=== PATIENT | male | born 1955 | race Caucasian/White ===

== ENCOUNTER 2019-07-03 17:32 | Inpatient (IN) | payer MEDICARE, SELFPAY ==
[2019-07-03] VITALS (10 sets, daily range): BP systolic 98–133; BP diastolic 40–81; PULSE 68–94; RESP 18–22; TEMP 35.9–36.8; O2SAT 90–99; BMI 42.0
--- NOTE | ~2019-07-03 | XR_ITS ---
EXAMINATION: XR chest 2V DATE: 07/03/2019 18:29 INDICATION: Shortness of breath. Fluid retention. TECHNIQUE: frontal and lateral views of the chest were obtained. COMPARISON: Chest radiograph dated 05/01/19 FINDINGS: Increase in size of a still small right pleural effusion with blunting at the posterior sulcus and co stophrenic angle. There is a new small right pleural effusion. Airspace opacities at the bilateral lo wer lung zones, right greater than left consistent with atelectasis/scarring although superimposed pn eumonia not excludable. No pulmonary edema or pneumothorax. Cardiac silhouette appears enlarged howev er this is likely exaggerated by AP technique. There are bridging osteophytes at multiple levels in t he spine, consistent with diffuse idiopathic skeletal hyperostosis (DISH). Old healed sternal fractur e. IMPRESSION: 1. Small bilateral pleural effusions, new on the left and slightly larger and increased since prior s tudy on the right. 2. Opacities in the bilateral lower lung zones most likely atelectasis/scarring although pneumonia no t excludable. 3. Large to cardiac silhouette which appears unchanged since 11/30/2013 with normal size on intervenin g chest radiograph suggesting this is artifact of AP technique.. Reviewed, dictated and finalized at location A. ROOM SUPERVISOR IMPRESSION: 1. Small bilateral pleural effusions, new on the left and slightly larger and i ncreased since prior study on the right. 2. Opacities in the bilateral lower lung zones most likely atelectasis/scarring although pneumonia not excludable. 3. Large to cardiac silhouette which appears unchanged since 11/30/2013 with nor mal size on intervening chest radiograph suggesting this is artifact of AP tech nique..
--- NOTE | ~2019-07-03 | US_ITS ---
EXAMINATION: US right upper quadrant DATE: 07/06/2019 10:58 INDICATION: Abnormal liver function tests. TECHNIQUE: Multiple grayscale and Doppler ultrasound images of the abdomen were obtained. COMPARISON: Chest CT 05/25/2012 FINDINGS: The pancreas is obscured by bowel gas. There is diffuse hepatic steatosis. There is normal flow in main portal vein. The gallbladder is normal in size and contains sludge. No gallstones or gal lbladder wall thickening. There was no sonographic Hankins sign. The common duct is normal and measure s 6 mm. IMPRESSION: 1. Diffuse hepatic steatosis. 2. Gallbladder sludge. No evidence of acute cholecystitis. Reviewed, dictated and finalized at location A. RIST CLIMBER
--- NOTE | ~2019-07-03 | US_ITS ---
EXAMINATION: US venous doppler UE RT EXAM DATE: 07/04/2019 16:08 INDICATION: Right upper extremity edema. TECHNIQUE: Multiple grayscale, color flow, Doppler sonographic images of the right upper extremity ve ins obtained by technologist. Compression was performed where able. Comparison is made to prior exam ination from 01/16/2018. FINDINGS: Right upper extremity: Jugular vein: ------------> Normal. Subclavian vein: --------> Normal. Axillary vein:------------> Normal. Brachial vein:-----------> Normal. Basilic vein: ------------> Normal. Cephalic vein: ----------> Normal. Radial vein: ------------> Normal. Ulnar vein: > Normal. IMPRESSION: No deep venous thrombosis of the right upper extremity. Reviewed, dictated and finalized at location B. END WEB DEVELOPER
--- NOTE | 2019-07-03 17:39 | ED.GENADULT ---
HPI - General Adult General Chief complaint: Unspecified Stated complaint: MULTIPLE C/O Time Seen by Provider: 07/03/19 17:36 Source: patient Mode of arrival: ambulatory Limitations: no limitations History of Present Illness HPI narrative: The pt is a 63 y/o male who presents to the ED c/o fluid retention. Pt notes that he presented to this ED on 05/01/19. Pt states that he recently had his water pill increased from 3 mg BID to 4 mg BID by his e commerce web developer, Dr. Hurtado. Pt states that he has diffuse edema that is especially present in his scrotum and ABD. Pt reports SOB that is a little worse than normal, BLE wounds with weeping, CP, constipation, and blood in stools. The pt notes that he is on iron pills currently due to the stools. The pt denies N/V/D and fever. Pt states that he has a PMHx of COPD. MD complaint: Fluid retention Onset (ago): unknown Location: abdomen and genitals Associated symptoms: chest pain, shortness of breath (Little worse than normal) and other (Diffuse edema that is particularly in ABD and scrotum, blood in stools (on treatment for this), constipation, BLE wounds with weeping) Related Data Home Medications Medication Instructions Recorded Confirmed bumetanide 2 mg PO BID 05/01/19 05/03/19 rivaroxaban 20 mg tablet 20 mg PO DAILY 05/28/19 05/28/19 Allergies Allergy/AdvReac Type Severity Reaction Status Date / Time No Known Allergies Allergy Verified 05/03/19 09:24 Review of Systems Review of Systems: All systems reviewed & are unremarkable except as noted in HPI and below Constitutional: Constitutional: Denies fever(s) Cardiovascular: Cardiovascular: Reports chest pain and Reports edema (Diffuse, but particularly in ABD and scrotum) Respiratory: Respiratory: Reports dyspnea (A little worse than normal) Gastrointestinal: Gastrointestinal: Reports constipation, Denies diarrhea, Denies nausea, Denies vomiting and Reports other (Blood in stools (On treatment for this)) Integumentary/Breasts: Skin/Breast: Reports wounds (BLE, with weeping) PMFSH Past Medical History Medical History A-fib Arthritis B12 deficiency Benign essential hypertension Body mass index (BMI) 40.0-44.9, adult Cellulitis Recurrent lower extremity cellulitis CHF (congestive heart failure) Chronic kidney disease CKD (chronic kidney disease) Chronic kidney disease stage 3 Diabetes GERD (gastroesophageal reflux disease) Gout Heart attack 2013 with cardiac arrest requiring defibrillation Hypercholesteremia Insomnia Kidney stones Leg fracture, right Moderate pulmonary arterial systolic hypertension Obstructive sleep apnea Refuses CPAP Other and unspecified hyperlipidemia Pneumonia Secondary DM with CKD stage 3 and hypertension Umbilical hernia Not repaired Surgical History Surgical History H/O vein stripping History of cardiac catheterization November 2013 demonstrating high-grade stenosis proximal left anterior descending artery with intracoronary thrombus, high-grade diffuse segmental stenosis of right coronary artery with aspiration and thrombectomy with stent deployment of the LAD, EF post catheterization was 35-40% with moderate severe hypokinesis posterior basal segment with repeat echocardiogram 2017 demonstrating return of normal systolic function History of coronary artery stent placement History of left knee surgery History of tonsillectomy Social History Social History (Updated 05/28/19 @ 09:23 by Guillermo Coleman APN) Social History: [place] [facility] in [place]. The patient and his current were raising her 11-year-old granddaughter until recently. Patient is on disability due to recurrent right leg infections and his cardiac disease. His still works full-time and the patient stays at home with the pets. Patient has been smoking since he was 15 years old and has smoked betwee
--- NOTE | 2019-07-03 17:53 | ECG_ITS ---
Measurements Intervals [place] Rate: 70 P: -24 [place]: 126 QRS: 35 QRSD: 100 T: -59 QT: 360 QTc: 389 Interpretive Statements SINUS RHYTHM LOW QRS VOLTAGE IN PRECORDIAL LEADS INCOMPLETE RIGHT BUNDLE BRANCH BLOCK BORDERLINE ST-T WAVE ABNORMALITY- ANTEROLAT/INF LEADS BASELINE ARTIFACT- I, III, AVR, AVL, V1-V2 BORDERLINE ECG Electronically Signed On 07-03-2019 19:45:20 PELOTA MAKER by Epifanio Morton D.O.
[2019-07-03 18:07] LABS: Basophils Percent Auto 0.4 % (0.2-1.2); Eosinophils Absolute Auto 0.1 K/mm3 (0-0.3); Eosinophils Percent Auto 1.1 % (0-4.4); Hematocrit 23.8 % (42.0-52.0); Immature Granulocyte Absolute 0.06 K/mm3 (0.00-0.031); Immature Granulocyte Percent A 0.6 % (0-0.5); Lymphocytes Absolute Auto 1.02 K/mm3 (0.9-3.2); Mean Corpuscular HGB Conc 26.5 g/dl (32-36); Mean Corpuscular Hemoglobin 23.3 pg (26-34); Mean Corpuscular Volume 88.1 fl (80-100); Mean Platelet Volume 9.9 fl (7.4-10.4); Monocytes Percent Auto 10.8 % (2.6-8.5); Neutrophils Absolute Auto 7.1 K/mm3 (1.3-6.7); Neutrophils Percent Auto 76.1 % (45.5-73.1); Platelet Count Result 332 k/mm3 (150-375); Red Cell Distribution Width 23.8 % (11.5-14.5); White Blood Count 9.3 K/mm3 (4.5-10.0)
[2019-07-03 18:17] LABS: Hemoglobin 6.3 g/dL (14.0-18.0); INR 1.3; Prothrombin Time 16.1 Seconds (11.1-14.7)
[2019-07-03 18:18] LABS: Alveolar/Arterial O2 Gradient 34.8 mmHg; Base Excess ABG 1.7 mEq/l (+/-2.0); Carboxyhemoglobin 8.6 % THb (0-2.0); Fractional Inspired Oxygen 21 %; HCO3 ABG 26.3 mEq/l (22.0-26.0); Oxygen Content ABG 8.9 %vol (16.0-22.0); Oxygen Saturation ABG 93.3 % (95.0-100.0); Oxyhemoglobin 83.2 % THb (90.0-100.0); PCO2 ABG 41.3 mmHg (35.0-45.0); PO2 ABG 65.5 mmHg (80.0-100.0); PO2 FiO2 Ratio Arterial Blood 3.12 %; Reduced Hemoglobin 8.2 %THb (0-5.0); pH ABG 7.422 (7.350-7.450)
[2019-07-03 18:18] LABS: Partial Thromboplastin Time 30.8 SECONDS (22.3-36.8)
[2019-07-03 18:20] LABS: Magnesium 2.2 mg/dL (1.6-2.3); Phosphorus 3.9 mg/dL (2.5-4.5)
[2019-07-03 18:21] LABS: Device ROOM AIR; Modified Allen's Test Pass; Site Drawn LEFT RADIAL; Total Hemoglobin 7.5 g/dL (12.0-18.0)
[2019-07-03 18:22] LABS: Alanine Aminotransferase 26 U/L (4-50); Albumin Level 3.4 g/dL (3.5-5.1); Alkaline Phosphatase 262 U/L (38-126); Aspartate Amino Transferase 31 U/L (17-59); Bilirubin,Total 0.7 mg/dL (0.2-1.3); Blood Urea Nitrogen 41 mg/dL (9-20); CRP 1.8 mg/dL (<1.0); Calcium 8.5 mg/dL (8.4-10.2); Carbon Dioxide 26 mmol/L (22-30); Chloride 92 mmol/L (98-107); Estimated Glomerular Filt Rate 39; Glucose 86 mg/dL (75-110); Sodium 135 mmol/L (137-145)
[2019-07-03 18:34] LABS: NT Pro B Type Natriuretic Pept 6330 PG/ML (5-100); Troponin I 0.014 ng/mL (0.000-0.034)
[2019-07-03 18:40] LABS: Acanthocytes 2+ (NORMAL); Platelet Estimate Adequate (Adequate); Stomatocytes 1+ (NORMAL)
[2019-07-03 18:41] LABS: Burr Cells 1+ (NORMAL); Ovalocytes 2+ (NORMAL)
[2019-07-03 19:02] LABS: Add Urine Microscopic? YES; Appearance Urine Clear (Clear); Bacteria Urine Trace /hpf; Bilirubin Urine Negative (Negative); Blood Urine 2+ (Negative); Color Urine Yellow (Yellow); Glucose Urine UA Negative (Negative); Ketones Urine Negative (Negative); Leukocyte Esterase Ur Negative LEU/UL (Negative); Mucus Urine Rare /lpf; Nitrate Urine Negative (Negative); Protein Urine Negative (Negative); Specific Grav Ur 1.014 (1.001-1.035); Squamous Epithelial Cell Urine Occasional /hpf (Few); Urobilinogen Urine Negative mg/dL (<2.0); WBC Urine 0-3 /hpf
[2019-07-03 19:13] LABS: Iron 25 ug/dL (49-181)
[2019-07-03] MEDS: FUROSEMIDE INJ 40 MG/4 ML VIAL IV PUSH ×2 (19:17→23:12)
[2019-07-03 19:22] LABS: Percent Iron Saturation 6 % (20-50)
[2019-07-03 20:22] LABS: Folic Acid 7.2 ng/mL (2.76->20); Vitamin B12 > 1000.0 pg/mL (239-931)
[2019-07-03] MEDS: IPRATROPIUM BR 0.02% INH SOLN 0.5 MG/2.5 ML VIAL INHALATION (21:50)
[2019-07-03] MEDS: ALBUTEROL SULFATE NEB 2.5 MG/0.5 ML INH 5 MG INHALATION (21:50)
[2019-07-03] MEDS: PANTOPRAZOLE SODIUM IV 40 MG VIAL IV PUSH (23:12)
--- NOTE | 2019-07-03 23:30 | PM.IMHP ---
H&P: HPI History of Present Illness Chief complaint: Fluid retention Narrative: Date and time of patient contact: 07/03/2019 at 11:30 p.m. Solo Krishnan I is a 63 year old male with a past medical history type 2 diabetes mellitus, moderate pulmonary hypertension, obstructive sleep apnea, she she CHF and atrial fibrillation who presented to the ER which fluid retention and increased shortness of breath. The patient reports that he has had increasing lower extremity swelling with a swelling extending up into his thighs and abdomen over the last 3 weeks. He has had weeping wounds to the back of bilateral calves for the last 2 weeks. He has noticed increased erythema bilateral lower extremities for the last 2 weeks. He became concerned enough to come into the ER when on the his scrotum became swollen to the size of cantaloupes. He denies having significant orthopnea but he usually sleeps in a recliner. He has been sleeping on his pulled out so for a on occasion and still denies orthopnea. He has also noticed swelling in his right arm over the last week or so. He denies any fevers but is always chilled. He always has a cough that is productive of grayish phlegm. However his cough has increased recently. He reports that the nebulizer treatments do seem to help his shortness of breath. He has been taking his Bumex 2 mg twice a day. The patient had been admitted to the hospital March 31 through the due to atrial fibrillation, and CHF. He had followed up with Dr. Mia Hurtado. The patient had been told weigh himself. But he had not been doing so because he was afraid of what scale which show him. He had been taking his Bumex as directed. He denies any chest pain or palpitations. He is currently in normal sinus rhythm. He reports that he has been having his usual amount of urine output at home. He denies any dysuria or hematuria. The patient did go to his primary care physician for follow-up May 28 and the patient refused a Cologuard because it was too expensive. He had refused a colonoscopy in the past. The patient seems somewhat reassured that if he did have a colonoscopy that he would be sedated. I encouraged the patient to least consider having endoscopy given his symptoms and significant anemia. He is at least willing to talk to the seafood packer. The patient's hemoglobin had trended down from prior value of 10 down to around 8 as of his follow-up appointment in May. Patient reports black stools but does take iron supplements. He reported that about a week ago he strained to have a bowel movement and had a large amount of blood in the toilet bowl from a ruptured hemorrhoid. He reported that he drip blood briefly but then the bleeding stopped. He reports that his stools are always hard. He has been taking some stool softeners which help a little bit but do not resolve the issue completely. He usually does have a bowel movement every day. He reports that his ventral hernia has not been causing him any pain. He does have a history of B12 deficiency but is B12 level is now high and he no longer has macrocytosis. The patient's weight at the time of his last discharge was 127 kg. He is up about 13 kg from last hospitalization. Review of Systems Review of Systems: Narrative: Except as documented in the HPI, all other systems were reviewed and are negative. [facility] Past Medical History Medical History (Updated 07/03/19 @ 21:17 by Kenya Lott DO) Aortic stenosis Noted on echo March 2019 was mild with a mean gradient of 7 a valve area of 1.6 Arthritis B12 deficiency Diagnosed December 2018 with adequate supplementation B12 level is now elevated Benign essential hypertension Body mass index (BMI) 40.0-44.9, adult CAD (coronary artery disease) Cellulitis Recurrent lower extremity cellulitis Chronic insomnia CKD (chronic kidney disease) Chronic kidney disease stage 3 Combined systolic and diastoli
[2019-07-04] VITALS (23 sets, daily range): BP systolic 98–120; BP diastolic 55–75; PULSE 20–96; RESP 18–93; TEMP 36.2–36.9; O2SAT 82–95
[2019-07-04] MEDS: IPRATROPIUM BR 0.02% INH SOLN 0.5 MG/2.5 ML VIAL INHALATION ×4 (03:43→21:21)
[2019-07-04] MEDS: ALBUTEROL SULFATE NEB 2.5 MG/0.5 ML INH 5 MG INHALATION ×4 (03:43→21:21)
--- NOTE | 2019-07-04 05:09 | ADMGEN ---
This patient, Solo Krishnan I, was admitted to Medical Room 249-01. Patient/family oriented to hospital policies and general routines including ID bracelet, bed and alarms, visiting hours, pain management, procedures, bathroom and other care routines, personal items, smoking policy, room service/diet, and visiting hours. Valuables list has been completed. Information on how to activate the Rapid Response Team has been discussed. Patient/Family are encouraged to report perceived risks to care and to ask questions if they do not understand what they are told or what they should do.
[2019-07-04 05:52] LABS: Hematocrit 26.5 % (42.0-52.0); Hemoglobin 7.3 g/dL (14.0-18.0); Mean Corpuscular HGB Conc 27.5 g/dl (32-36); Mean Corpuscular Hemoglobin 23.9 pg (26-34); Mean Corpuscular Volume 86.6 fl (80-100); Mean Platelet Volume 10.3 fl (7.4-10.4); Platelet Count Result 271 k/mm3 (150-375); Red Blood Count 3.06 M/mm3 (4.6-6.20); Red Cell Distribution Width 22.2 % (11.5-14.5); White Blood Count 6.5 K/mm3 (4.5-10.0)
[2019-07-04 06:13] LABS: Blood Urea Nitrogen 44 mg/dL (9-20); Calcium 8.3 mg/dL (8.4-10.2); Carbon Dioxide 30 mmol/L (22-30); Chloride 93 mmol/L (98-107); Estimated CRCL calculation 64 ml/min; Estimated Glomerular Filt Rate 44; Glucose 101 mg/dL (75-110); Potassium 3.5 mmol/L (3.4-5.0); Sodium 137 mmol/L (137-145)
[2019-07-04] MEDS: FUROSEMIDE INJ 40 MG/4 ML VIAL IV PUSH ×2 (08:30→21:07)
[2019-07-04] MEDS: DOCUSATE SODIUM 100 MG CAPSULE PO (08:30)
[2019-07-04] MEDS: POTASSIUM CHLORIDE 20 MEQ TABLET PO (08:30)
[2019-07-04] MEDS: PANTOPRAZOLE SODIUM IV 40 MG VIAL IV PUSH ×2 (08:31→21:41)
[2019-07-04] MEDS: ATORVASTATIN 40 MG TABLET 80 MG PO (08:31)
[2019-07-04] MEDS: FERROUS SULFATE 324 MG TABLET PO (08:31)
[2019-07-04] MEDS: NICOTINE (*PBKC) 21 MG PATCH 1 PATCH TRANSDERM (08:32)
--- NOTE | 2019-07-04 11:04 | WPDGICN ---
Assessment and Plan Additional Plan This is a 63-year-old white male patient seen in evaluation at the request of the hospitalist service. Patient is from [facility]. Came to the [facility] in [facility]. He has a past medical history of atrial fibrillation on Xarelto anticoagulation. He has been treated for COPD, diabetes mellitus, Sleep apnea, And congestive heart failure. He has become somewhat increasingly short of breath. He has had increased swelling in his lower extremities. Over the last 2 weeks. Because of the shortness of breath and edema he presented to the emergency room. He was found to be in congestive heart failure. With profound anemia. The patient reports over the last 3 weeks has had black stools. On 1 occasion had bright red blood per rectum in the toilet bowl after a hard constipated stool. Patient denies abdominal pain. Past medical history is significant for B12 deficiency COPD, diabetes, GE reflux, atherosclerotic heart disease, atrial fibrillation, Xarelto anticoagulation, Current medications include Xarelto, albuterol, atorvastatin, Symbicort, Bumex, ferrous sulfate, metoprolol, There are no known drug allergies. Physical exam reveals patient to be alert. He is anicteric. HEENT exam is unremarkable. Lungs reveal a few expiratory wheezes. Heart is irregularly irregular. Abdomen is obese. Bowel sounds are present soft nontender. He has large ventral hernia. At the umbilicus. Extremities are without clubbing cyanosis or edema. Rectal exam is without lesions. No stool is obtained. Laboratory work reveals CBC hemoglobin 6.3 on presentation. MCV 86. Iron 25, TIBC 421, 6% saturation, ferritin 11.9. Protime 16.1, INR 1.3. BUN 44, creatinine 1.6. Impression 1. Iron deficiency anemia. Suggesting some chronic GI blood loss. 2. Melenic stools. Suggesting possible upper GI bleeding source. 3. Episode of bright red blood per rectum. May represent hemorrhoids but lower GI bleeding source cannot be excluded. 4. Atrial fibrillation. 5. Xarelto anticoagulation. Likely contributes to GI blood loss. Xarelto now on hold. 6. Congestive heart failure. Profound anemia likely contributes to high-output congestive heart failure. Patient improving after transfusion to more stable hematocrit. 7. COPD. 8. Hypertension. 9. Diabetes mellitus. Plan is to transfuse to stable hemoglobin. Hold anticoagulation until bleeding has stopped. And it is safe to resume. Patient will be covered with Protonix for possible ulcer disease in the antrum. GI endoscopy to include both colonoscopy an EGD anticipated after preparation. Patient currently agrees to proceed with this procedure. Continue to monitor hemoglobin till we are certain it is safe. GI Consult Note Consult date/time: 07/04/19 11:04 HPI: Solo Krishnan I is a 63 year old male [facility] Past Medical History Medical History (Updated 07/03/19 @ 21:17 by Kenya Lott, DO) Aortic stenosis Noted on echo March 2019 was mild with a mean gradient of 7 a valve area of 1.6 Arthritis B12 deficiency Diagnosed December 2018 with adequate supplementation B12 level is now elevated Benign essential hypertension Body mass index (BMI) 40.0-44.9, adult CAD (coronary artery disease) Cellulitis Recurrent lower extremity cellulitis Chronic insomnia CKD (chronic kidney disease) Chronic kidney disease stage 3 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 Right ventricular chamber dimension is severely enlarged. 2. Right ventricular systolic function is moderate to severely reduced. 3. Prominent moderator band. 4. Flattening of the septum in diastole and systole consistent with right ventricular volume and pressure overload. 5. Right atrial chamber dimension is markedly enlarged. 6. There is mild aortic valve stenosis with a peak velocity of 186 cm/s, mean gradient of 7 mmHg, and aortic valve area of 1.6 cm2. 7. There i
[2019-07-04] MEDS: SILVERGEL (ELTA) 45 ML 1 APPLIC TOPICAL (11:37)
[2019-07-04 12:04] LABS: Hematocrit 25.7 % (42.0-52.0); Hemoglobin 7.2 g/dL (14.0-18.0)
[2019-07-04] MEDS: PEG (High)/E-LYTE SOLN 4,000 ML BTL 4000 ML PO (13:03)
--- NOTE | 2019-07-04 14:29 | PCOTNOTE ---
OT evaluation attempted this date. Pt refusing therapy at this time despite encouragement to participate.Will attempt OT evaluation tomorrow.
--- NOTE | 2019-07-04 14:31 | PCPTNOTE ---
attempted PT/OT eval this afternoon...pt declined, just received bowel prep, states that he is sob, and would like to defer until tomorrow...will see tomorrow as appropriate
--- NOTE | 2019-07-04 15:10 | PM.CNCAR ---
Assessment and Plan Assessment and plan (1) Right-sided heart failure: Code(s): I50.810 - Right heart failure, unspecified Status: Acute Assessment and Plan: his heart failure is predominantly right-sided. He has severe RV enlargement and hypokinesis noted by echocardiogram last fall. This is likely a combination of untreated sleep apnea, morbid obesity. Certainly may have a degree of left heart involvement also and diastolic dysfunction. Cannot exclude alcoholic liver disease as a contributor either. I will check a 2D echocardiogram Doppler to re-evaluate his RV size and function and pulmonary pressures. I am going to initiate some metolazone therapy 2.5 mg p.o. daily in addition to continue his IV Lasix. Will check a bilirubin also (2) Severe anemia: Code(s): D64.9 - Anemia, unspecified Status: Acute Assessment and Plan: Xarelto is on hold and he is planning on having a colonoscopy in and the endoscopy tomorrow (3) Paroxysmal atrial fibrillation: Code(s): I48.0 - Paroxysmal atrial fibrillation Status: Acute Assessment and Plan: in sinus rhythm. Will resume metoprolol 25 mg p.o. b.i.d. and increaseas blood pressure allows (4) Coronary artery disease: Code(s): I25.10 - Atherosclerotic heart disease of zuni coronary artery without angina pectoris Status: Acute Assessment and Plan: hold aspirin for now. Continue atorvastatin and beta-miyram. (5) Tobacco abuse: Code(s): Z72.0 - Tobacco use Status: Acute Assessment and Plan: Counseling performed (6) Alcohol abuse: Code(s): F10.10 - Alcohol abuse, uncomplicated Status: Acute Assessment and Plan: counseling performed (7) Obstructive sleep apnea: Code(s): G47.33 - Obstructive sleep apnea (adult) (pediatric) Status: Acute Assessment and Plan: will consult Dr. Weiss to assist with COPD management as well as hopefully to assist with convincing him to start CPAP therapy which is imperative to his survival /treatment History of Present Illness History of Present Illness Consult date/time: 07/04/19 15:10 Requesting physician: Veronica Kingsley PA-C Consult reason: congestive heart failure and Other ( Anasarca) Reason For Visit: Fluid retention Narrative: date of service 07/04/2019: History: Patient is a 63-year-old male who is a patient Dr. elise wild is a history of VFib arrest in 2014 in setting of a non-STEMI. Drug-eluting state was placed to the proximal LAD. He does have diffuse the RCA disease also. He was admitted at [facility] in March 2019 and was found to be in atrial fibrillation and also was found to have severe RV enlargement and moderate RV ST elevation at 56. EF 55-60%. Mild aortic stenosis. He was started on anticoagulation. Patient has syncopal episode on which is thought to be related to tussive syncope. He did see our nurse practitioner in the office in late May homemade some minor adjustments to his Bumex. Patient was also on metoprolol tartrate 75 mg p.o. b.i.d. also at that time. Patient does drink and smoke excessively. There is also evidence of a highly positive apnea link during his hospitalization but reportedly the patient did not want to pursue sleep medicine therapy at that time. He came to hospital because of scrotal edema and progressively worsening fluid retention everywhere. He was also found to be severely anemic with a hemoglobin of 6. He was transfused. He was started on IV diuretics. Cardiology consultation was requested for further workup evaluation. Patient is short of breath with minimal activity. He has had no chest pain but has had some paroxysmal nocturnal dyspnea. No syncope or presyncope Be sides that aforementioned on . Review of Systems Review of Systems: All systems reviewed & are unremarkable except as noted in HPI and below Constitutional: Consti
--- NOTE | 2019-07-04 16:13 | PM.IMPN ---
Progress Note: A&P Assessment and Plan (1) Severe anemia: Code(s): D64.9 - Anemia, unspecified Status: Acute Assessment and Plan: Hgb on arrival 6.3 and he received 2 units packed RBC overnight, Hgb remains low at 7.2 today. He reports black stools for the last [address] Snell consulted - appreciate input. Noted his plan for EGD and colonoscopy tomorrow if Hgb remains stable. Will monitor H&H overnight and transfuse as needed to keep Hgb > 7. Home Xarelto is held. (2) Acute on chronic combined systolic and diastolic CHF (congestive heart failure): Code(s): I50.43 - Acute on chronic combined systolic (congestive) and diastolic (congestive) heart failure Status: Acute Assessment and Plan: Patient follows with Dr Hurtado. Echocardiogram March 2019 demonstrated severe RV enlargment. Chest x-ray shows small bilateral pleural effusions, BNP 6330. Dr Rob consulted - appreciate further recommendations regarding diuresis. Noted his plan for repeat echocardiogram and added metolazone to IV lasix. (3) Anasarca: Code(s): R60.1 - Generalized edema Status: Acute Assessment and Plan: [place] to be secondary to above. Bilirubin on arrival 0.7, ALT and AST within normal limits, alk-phos is elevated. (4) COPD (chronic obstructive pulmonary disease): Qualifiers: COPD type: unspecified COPD Qualified Code(s): J44.9 - Chronic obstructive pulmonary disease, unspecified Code(s): J44.9 - Chronic obstructive pulmonary disease, unspecified Status: Acute Assessment and Plan: Continue home symbicort. He does have a productive cough that he tells me is normal for him. No fevers or leukocytosis. Continue scheduled nebulized bronchodilators. Added Pulmozyme, Mucinex and Cornet. Dr. Rob has consulted Dr. Weiss. (5) Tobacco abuse: Code(s): Z72.0 - Tobacco use Status: Acute Assessment and Plan: Smoking cessation discussed. Nicotine patch ordered. (6) Obstructive sleep apnea: Code(s): G47.33 - Obstructive sleep apnea (adult) (pediatric) Status: Acute Assessment and Plan: Discussed the cardiopulmonary risks of untreated sleep apnea which is likely contributing to his heart failure. Apnea link 03/30/19 during one of his previous admissions is positive and it is noted that he declined further evaluation with sleep study. (7) Paroxysmal atrial fibrillation: Code(s): I48.0 - Paroxysmal atrial fibrillation Status: Chronic Assessment and Plan: Cardiology following. Continue beta-blockade with metoprolol. Home Xarelto on hold. (8) Venous stasis ulcers of both lower extremities: Code(s): I83.019 - Varicose veins of right lower extremity with ulcer of unspecified site; I83.029 - Varicose veins of left lower extremity with ulcer of unspecified site; L97.919 - Non-pressure chronic ulcer of unspecified part of right lower leg with unspecified severity; L97.929 - Non-pressure chronic ulcer of unspecified part of left lower leg with unspecified severity Status: Acute Assessment and Plan: Seen by wound nurse, cover with Mepilex dressings. Lower legs are erythematous but do not appear to be acutely infected. (9) CKD (chronic kidney disease): Qualifiers: Chronic kidney disease stage: unspecified stage Qualified Code(s): N18.9 - Chronic kidney disease, unspecified Code(s): N18.9 - Chronic kidney disease, unspecified Status: Acute Assessment and Plan: Cr at 1.6 today, has been up to 2.4 in 03/2019. Will monitor renal function especially with increased diuresis. Subjective Date/time seen: 07/04/19
[2019-07-04] MEDS: metOLazone 2.5 MG TABLET PO (16:34)
[2019-07-04 17:09] LABS: Bilirubin Indirect 0.6 mg/dL (0-1.1); Bilirubin,Total 1.1 mg/dL (0.2-1.3)
[2019-07-04 19:05] LABS: IFOB Positive Control Positive; Immunochemical Fecal Occult Bl Positive (N)
[2019-07-04] MEDS: METOPROLOL TARTRATE 25 MG TABLET PO (21:07)
[2019-07-04] MEDS: DORNASE ALFA INH SOLN 1 MG/ML 2.5 ML AMP 2.5 MG INHALATION (21:21)
[2019-07-05] VITALS (23 sets, daily range): BP systolic 104–145; BP diastolic 54–91; PULSE 80–99; RESP 17–28; TEMP 36.1–36.6; O2SAT 93–100
--- NOTE | 2019-07-05 | ECHO_ITS ---
Patient Info Name: Solo Krishnan Age: 63 years : 1955 Gender: Male Ht: 72 in Wt: 309 lbs BSA: 2.73 m2 HR: 82 bpm BP: 107 / 52 mmHg Heart Rhythm: Sinus Rhythm Technical Quality: Fair Exam Date: 07/05/2019 7:18 AM Exam Location: [facility] [facility] Patient Status: Inpatient Admit Date: 07/04/2019 Staff Ordering Physician: Pancho Rob MD Tree Surgeon: Candi Ayoub RDCS Attending Provider: Veronica Kingsley PA-C Referring Physician: Liane STEVENSON; Exam Type: CA echo doppler color flow Study Info Indications I50.30 - Unspecified diastolic (congestive) heart failure Complete two-dimensional, color flow and Doppler transthoracic echocardiogram is performed. Summary 1. There is mild concentric increased left ventricular wall thickness. 2. Left ventricular systolic function is normal, estimated at 65-70%. 3. Right ventricular chamber dimension is severely enlarged. 4. Right atrial chamber dimension is severely enlarged. 5. Severe pulmonary hypertension, estimated pulmonary arterial systolic pressure is 99 mmHg. 6. There is moderate to severe tricuspid valve regurgitation. 7. Compared with an echo several months ago in March of 2019 the findings are not substantially changed. Left Ventricle Left ventricular chamber dimension is normal. Left ventricular systolic function is normal, estimated at 65-70%. There is mild concentric increased left ventricular wall thickness. The left ventricular diastolic function is grade I diastolic dysfunction. Right Ventricle Right ventricular chamber dimension is severely enlarged. Right ventricular systolic function is reduced. Left Atria Left atrial chamber dimension is mildly enlarged. Right Atria Right atrial chamber dimension is severely enlarged. Aortic Valve The aortic valve is trileaflet. There is moderate aortic valve sclerosis. There is mild aortic valve stenosis with a peak velocity of 217 cm/s, mean gradient of 8 mmHg, and aortic valve area of 2.1 cm2. Pulmonic Valve The pulmonic valve is not well visualized. Mitral Valve The mitral valve has normal leaflets. There is trace mitral valve regurgitation. Tricuspid Valve The tricuspid valve leaflets are normal. There is moderate to severe tricuspid valve regurgitation. Severe pulmonary hypertension, estimated pulmonary arterial systolic pressure is 99 mmHg. Pericardium/Pleural The pericardium appears normal. Aorta The aortic root size at the sinus of Valsalva is normal. Left Ventricular Outflow Tract Name Value Normal LVOT 2D LVOT Diameter 2.0 cm LVOT Doppler LVOT Peak Gradient 6 mmHg LVOT Mean Gradient 3 mmHg LVOT VTI 24 cm LVOT VTI/AV VTI Ratio 0.7 LVOT Stroke Volume 77 ml LVOT CO 6.5 l/min LVOT CI 2.4 l/min/m2 Pulmonic Valve Name Value Normal -----
[2019-07-05 00:34] LABS: Hematocrit 27.3 % (42.0-52.0); Hemoglobin 7.5 g/dL (14.0-18.0)
[2019-07-05] MEDS: IPRATROPIUM BR 0.02% INH SOLN 0.5 MG/2.5 ML VIAL INHALATION ×4 (03:23→20:00)
[2019-07-05] MEDS: ALBUTEROL SULFATE NEB 2.5 MG/0.5 ML INH 5 MG INHALATION ×4 (03:24→20:00)
[2019-07-05 07:32] LABS: Basophils Percent Auto 0.3 % (0.2-1.2); Eosinophils Absolute Auto 0.1 K/mm3 (0-0.3); Eosinophils Percent Auto 1.1 % (0-4.4); Hematocrit 25.9 % (42.0-52.0); Hemoglobin 7.3 g/dL (14.0-18.0); Immature Granulocyte Absolute 0.02 K/mm3 (0.00-0.031); Immature Granulocyte Percent A 0.3 % (0-0.5); Lymphocytes Absolute Auto 0.59 K/mm3 (0.9-3.2); Lymphocytes Percent Auto 7.8 % (18.3-44.2); Mean Corpuscular HGB Conc 28.2 g/dl (32-36); Mean Corpuscular Hemoglobin 23.9 pg (26-34); Mean Corpuscular Volume 84.9 fl (80-100); Mean Platelet Volume 9.6 fl (7.4-10.4); Monocytes Absolute Auto 0.7 K/mm3 (0.1-0.6); Monocytes Percent Auto 9.2 % (2.6-8.5); Neutrophils Absolute Auto 6.2 K/mm3 (1.3-6.7); Neutrophils Percent Auto 81.3 % (45.5-73.1); Platelet Count Result 241 k/mm3 (150-375); Red Blood Count 3.05 M/mm3 (4.6-6.20); White Blood Count 7.6 K/mm3 (4.5-10.0)
[2019-07-05 07:38] LABS: Crenated RBC 1+ (NORMAL); Hypochromasia 2+ (NORMAL); Ovalocytes 1+ (NORMAL); Platelet Estimate Adequate (Adequate); Tear Drop Cells 1+ (NORMAL)
[2019-07-05 07:45] LABS: Blood Urea Nitrogen 32 mg/dL (9-20); Calcium 7.8 mg/dL (8.4-10.2); Carbon Dioxide 33 mmol/L (22-30); Chloride 95 mmol/L (98-107); Estimated CRCL calculation 84 ml/min; Estimated Glomerular Filt Rate > 60; Glucose 94 mg/dL (75-110); Magnesium 1.8 mg/dL (1.6-2.3); Potassium 3.1 mmol/L (3.4-5.0); Sodium 137 mmol/L (137-145)
[2019-07-05] MEDS: FUROSEMIDE INJ 40 MG/4 ML VIAL IV PUSH ×2 (08:44→18:13)
[2019-07-05] MEDS: PANTOPRAZOLE SODIUM IV 40 MG VIAL IV PUSH (08:44)
[2019-07-05] MEDS: METOPROLOL TARTRATE 25 MG TABLET PO (08:52)
[2019-07-05] MEDS: POTASSIUM CHLORIDE 20 MEQ TABLET 40 MEQ PO (08:53)
[2019-07-05] MEDS: SILVERGEL (ELTA) 45 ML 1 APPLIC TOPICAL (08:53)
[2019-07-05] MEDS: DORNASE ALFA INH SOLN 1 MG/ML 2.5 ML AMP 2.5 MG INHALATION ×2 (09:12→20:00)
--- NOTE | 2019-07-05 10:30 | PC.NURSE ---
To GI lab via stretcher with GI lab staff.
[2019-07-05] MEDS: LACTATED RINGERS 1,000 ML 150 ML IV CONT (10:35)
[2019-07-05 10:48] LABS: Glucose Point of Care 81 (65-105)
--- NOTE | 2019-07-05 10:50 | WPDANESEPPF ---
Anes - Initial Pre Proc Eval Procedure: Operation Date: 07/05/19 11:00 Proposed Procedures p Esophagogastroduodenoscopy & Colonoscopy - Alessandro Snell MD Date/Time: 07/05/19 10:50 Surgeon: SUSANNA Diana Pre Op Diagnosis: Fluid retention Patient Data Age: 63 Gender: M Height: 6 ft Weight: 140.6 kg Last Vital Signs Temp 36.6 C 07/05/19 10:16 Pulse 85 07/05/19 10:16 Resp 20 07/05/19 10:16 BP 104/64 07/05/19 10:16 Pulse Ox 100 07/05/19 10:16 Allergies Allergy/AdvReac Type Severity Reaction Status Date / Time No Known Allergies Allergy Verified 07/05/19 10:14 Home Medications Medication Instructions Recorded Confirmed Type albuterol sulfate 90 mcg/actuation See Rx Instructions INHALATION Q4H 03/08/19 07/03/19 Rx aerosol inhaler PRN #8.5 gm metoprolol tartrate 50 mg tablet 50 mg PO Q12HR 90 Days #180 tablet 04/02/19 07/03/19 Rx albuterol sulfate 2.5 mg INHALATION BID PRN #20 vial 04/09/19 07/03/19 Rx bumetanide 2 mg PO BID 05/01/19 07/03/19 History rivaroxaban 20 mg tablet 20 mg PO DAILY 05/28/19 07/03/19 History ferrous sulfate 325 mg (65 mg 325 mg PO DAILY #90 tablet 05/29/19 07/03/19 Rx iron) tablet atorvastatin 80 mg tablet 80 mg PO DAILY #90 tablet 06/20/19 07/03/19 Rx budesonide-formoterol [Symbicort] 1 inh INHALATION BID 07/03/19 07/03/19 History Laboratory Tests 07/04/19 07/04/19 07/04/19 11:52 16:50 17:58 WBC RBC Hgb 7.2 g/dL L g/dL (14.0-18.0) Hct 25.7 % L % (42.0-52.0) MCV MCH MCHC RDW Plt Count MPV Immature Gran % (Auto) Neut % (Auto) Lymph % (Auto) [place] % (Auto) Eos % (Auto) Baso % (Auto) Lymph # (Auto) [place] # (Auto) Eos # (Auto) Baso # (Auto) Abs Immat Gran (auto) Absolute Neuts (auto) Absolute Nucleated RBC Nucleated RBC % Platelet Estimate Hypochromasia Tear Drop Cells Ovalocytes Crenated Cell Sodium Potassium Chloride Carbon Dioxide BUN Creatinine Estim Creat Clear Calc Estimated GFR Glucose POC Capillary Glucose Calcium Magnesium Total Bilirubin 1.1 mg/dL mg/dL (0.2-1.3) Direct Bilirubin 0.0 mg/dL mg/dL (0-0.3) Indirect Bilirubin 0.6 mg/dL mg/dL (0-1.1) Stl Occult Blood (IFOB) Positive H (N) 07/05/19 07/05/19 07/05/19 00:16 07:27 07:27 WBC 7.6 K/mm3 K/mm3 (4.5-10.0) RBC 3.05 M/mm3 L M/mm3 (4.6-6.20) Hgb 7.5 g/dL L g/dL 7.3 g/dL L g/dL (14.0-18.0) (14.0-18.0) Hct 27.3 % L % 25.9 % L % (42.0-52.0) (42.0-52.0) MCV 84.9 fl fl (80-100) MCH 23.9 pg L pg (26-34) MCHC 28.2 g/dl L g/dl (32-36) RDW 22.0 % H % (11.5-14.5) Plt Count 241 k/mm3 k/mm3 (150-375) MPV 9.6 fl fl (7.4-10.4) Immature Gran % (Auto) 0.3 % % (0-0.5) Neut % (Auto) 81.3 % H % (45.5-73.1) Lymph % (Auto) 7.8 % L % (18.3-44.2) [place] % (Auto) 9.2 % H % (2.6-8.5) Eos % (Auto) 1.1 % % (0-4.4) Baso % (Auto) 0.3 % % (0.2-1.2) Lymph # (Auto) 0.59 K/mm3 L K/mm3 (0.9-3.2) [place] # (Auto) 0.7 K/mm3 H K/mm3 (0.1-0.6) Eos # (Auto) 0.1 K/mm3 K/mm3 (0-0.3) Baso # (Auto) 0.0 K/mm3 K/mm3 (0.0-0.1) Abs Immat Gran (auto) 0.02 K/mm3 K/mm3 (0.00-0.031) Absolute Neuts (auto) 6.2 K/mm3 K/mm3 (1.3-6.7) Absolute Nucleated RBC 0.0 K/mm3 K/mm3 (0.0-0.012) Nucleated RBC % 0.0 % % (0.0-0.2
--- NOTE | 2019-07-05 11:01 | PM.IMPN ---
Progress Note: A&P Assessment and Plan (1) Severe anemia: Code(s): D64.9 - Anemia, unspecified Status: Acute Assessment and Plan: Hgb on arrival 6.3 and he received 2 units packed RBC, Hgb remains low at 7.5 this morning. He reports black stools for the last [address] Snell consulted - appreciate input. EGD/colonoscopy today. Will monitor H&H and transfuse as needed to keep Hgb > 7. Home Xarelto is held. (2) Acute on chronic combined systolic and diastolic CHF (congestive heart failure): Code(s): I50.43 - Acute on chronic combined systolic (congestive) and diastolic (congestive) heart failure Status: Acute Assessment and Plan: Patient follows with Dr Hurtado. Echocardiogram March 2019 demonstrated severe RV enlargment. Chest x-ray shows small bilateral pleural effusions, BNP 6330. Dr Rob consulted - appreciate further recommendations regarding diuresis. Noted his plan for repeat echocardiogram and added metolazone to IV lasix. Echo pending. (3) Anasarca: Code(s): R60.1 - Generalized edema Status: Acute Assessment and Plan: [place] to be secondary to above. Bilirubin on arrival 0.7, ALT and AST within normal limits, alk-phos is elevated. Recheck CMP tomorrow and consider abdominal ultrasound since he does have a reported history of alcohol in excess. (4) COPD (chronic obstructive pulmonary disease): Qualifiers: COPD type: unspecified COPD Qualified Code(s): J44.9 - Chronic obstructive pulmonary disease, unspecified Code(s): J44.9 - Chronic obstructive pulmonary disease, unspecified Status: Acute Assessment and Plan: Continue home symbicort. He does have a productive cough that he tells me is normal for him. No fevers or leukocytosis. Continue scheduled nebulized bronchodilators, Pulmozyme, Mucinex and Cornet. Still with audible wheezing today, will add oral prednisone. Dr. Rob has consulted Dr. Weiss. (5) Tobacco abuse: Code(s): Z72.0 - Tobacco use Status: Acute Assessment and Plan: Smoking cessation discussed. Nicotine patch ordered. (6) Obstructive sleep apnea: Code(s): G47.33 - Obstructive sleep apnea (adult) (pediatric) Status: Acute Assessment and Plan: Discussed the cardiopulmonary risks of untreated sleep apnea which is likely contributing to his heart failure. Apnea link 03/30/19 during one of his previous admissions is positive and it is noted that he declined further evaluation with sleep study. Recommend sleep study outpatient. (7) Paroxysmal atrial fibrillation: Code(s): I48.0 - Paroxysmal atrial fibrillation Status: Chronic Assessment and Plan: Cardiology following. Continue beta-blockade with metoprolol. Home Xarelto on hold due to GI bleed. (8) Venous stasis ulcers of both lower extremities: Code(s): I83.019 - Varicose veins of right lower extremity with ulcer of unspecified site; I83.029 - Varicose veins of left lower extremity with ulcer of unspecified site; L97.919 - Non-pressure chronic ulcer of unspecified part of right lower leg with unspecified severity; L97.929 - Non-pressure chronic ulcer of unspecified part of left lower leg with unspecified severity Status: Acute Assessment and Plan: Seen by wound nurse, cover with Mepilex dressings. Lower legs are erythematous but do not appear to be acutely infected at this time (9) CKD (chronic kidney disease): Qualifiers: Chronic kidney disease stage: unspecified stage Qualified Code(s): N18.9 - Chronic kidney disease, unspecified Code(s): N18.9 - Chronic kidney disease, unspecified Status: Acute Assessment and Plan:
--- NOTE | 2019-07-05 12:03 | SUR.OPER ---
SIGMOID POLYPECTOMY PERFORMED, NO SPECIMEN RETRIEVED
--- NOTE | 2019-07-05 12:41 | PC.NURSE ---
Patient returned from GI lab via stretcher with GI lab staff. Settled into bed. No c/o pain. No distress noted. Patient assisted with ordering lunch tray.
--- NOTE | 2019-07-05 13:13 | PCOTNOTE ---
Attempted Occupational Therapy Evaluation, Pt reports he has no interest in any kind of therapy during this hospital stay would appreciate if we did not return at this time. RN notified.
[2019-07-05] MEDS: predniSONE 20 MG TABLET 60 MG PO (13:28)
[2019-07-05] MEDS: metOLazone 2.5 MG TABLET PO (13:29)
[2019-07-05 13:33] LABS: Hemoglobin 7.6 g/dL (14.0-18.0)
--- NOTE | 2019-07-05 16:29 | PM.PNCARD ---
Progress Note: A&P Assessment and Plan (1) Right-sided heart failure: Qualifiers: Heart failure chronicity: acute on chronic Qualified Code(s): I50.813 - Acute on chronic right heart failure Code(s): I50.810 - Right heart failure, unspecified Status: Acute Assessment and Plan: -His heart failure is predominantly right-sided. He has severe RV enlargement and hypokinesis noted by echocardiogram last fall. This is likely a combination of untreated sleep apnea, morbid obesity. Certainly may have a degree of left heart involvement also and diastolic dysfunction. Cannot exclude alcoholic liver disease as a contributor either. -Echo 07/05/2019: Mild concentric increased left ventricular wall thickness. Left ventricular systolic function is normal, estimated at 65-70%. Right ventricular chamber dimension is severely enlarged. Right atrial chamber dimension is severely enlarged. Severe pulmonary hypertension, estimated pulmonary arterial systolic pressure is 99 mmHg. Moderate to severe tricuspid valve regurgitation. Compared with an echo several months ago in March of 2019 the findings are not substantially changed. -Continue metolazone 2.5 mg p.o. daily along with IV Lasix 40 mg every 12 hours. Will change to b.i.d. dosing that he is not getting diuretics at bedtime. -Supplement potassium. While we are diuresing him, will give him 40 mEq b.i.d. and monitor his electrolytes closely. Given additional 40 mEq now. Daily BMP and magnesium. Bilirubin 1.1 (2) Severe anemia: Code(s): D64.9 - Anemia, unspecified Status: Acute Assessment and Plan: Continue to hold Xarelto for now. See endoscopy and colonoscopy report. Stigmata of bleeding was noted on his internal hemorrhoids. (3) Paroxysmal atrial fibrillation: Code(s): I48.0 - Paroxysmal atrial fibrillation Status: Chronic Assessment and Plan: In sinus rhythm. Can discontinue telemetry. Increase Metoprolol to 50 mg q.12 hours. m (4) Coronary artery disease: Qualifiers: Associated angina: without angina Coronary Disease-Associated Artery/Lesion type: [place] artery [place] vs. transplanted heart: [place] heart Qualified Code(s): I25.10 - Atherosclerotic heart disease of [place] coronary artery without angina pectoris Code(s): I25.10 - Atherosclerotic heart disease of [place] coronary artery without angina pectoris Status: Acute Assessment and Plan: Hold aspirin for now. Continue atorvastatin and beta-miryam. Resume when able. (5) Tobacco abuse: Code(s): Z72.0 - Tobacco use Status: Acute Assessment and Plan: Counseling performed (6) Alcohol abuse: Code(s): F10.10 - Alcohol abuse, uncomplicated Status: Acute Assessment and Plan: counseling performed (7) Obstructive sleep apnea: Code(s): G47.33 - Obstructive sleep apnea (adult) (pediatric) Status: Acute Assessment and Plan: Treatment of his sleep apnea is imperative. Additional Plan Encouraged that he needs to sit up on the side of the bed at least for meals. He should be getting out of bed and participating with physical therapy however he states he does not need them. Wean oxygen as able. Plan discussed with Dr. Lawler [id number] 07/05/2019 Time Spent With Patient Time with patient: 15 - 25 minutes Subjective Date/time seen: 07/05/19 16:29 Interval history: Follow-up for: Date of service: 07/05/2019 Subjective: Denied chest discomfort. ?The only thing that hurts his my pride?. Breathing is slightly better. Cough is nonproductive but sometimes forceful. No lightheadedness. Legs are so heavy that he cannot move. Refused physical therapy today. Review of Systems
[2019-07-05] MEDS: FERROUS SULFATE 324 MG TABLET PO (17:11)
[2019-07-05] MEDS: ATORVASTATIN 40 MG TABLET 80 MG PO (17:11)
[2019-07-05] MEDS: NICOTINE (*PBKC) 21 MG PATCH 1 PATCH TRANSDERM (17:11)
--- NOTE | 2019-07-05 17:14 | PC.NURSE ---
Patient refused to get up to the chair for dinner. States he wants to sleep.
[2019-07-05] MEDS: POTASSIUM CHLORIDE 20 MEQ TABLET.ER 40 MEQ PO (18:13)
[2019-07-05 18:16] LABS: Hematocrit 25.9 % (42.0-52.0); Hemoglobin 7.1 g/dL (14.0-18.0)
[2019-07-05] MEDS: METOPROLOL TARTRATE 50 MG TAB PO (20:42)
[2019-07-05] MEDS: MAGNESIUM OXIDE 200 MG TABLET PO (20:42)
[2019-07-06] VITALS (21 sets, daily range): BP systolic 110–128; BP diastolic 54–73; PULSE 78–108; RESP 18–24; TEMP 36.1–36.8; O2SAT 94–100
[2019-07-06 00:35] LABS: Hematocrit 28.1 % (42.0-52.0); Hemoglobin 7.7 g/dL (14.0-18.0)
[2019-07-06] MEDS: IPRATROPIUM BR 0.02% INH SOLN 0.5 MG/2.5 ML VIAL INHALATION ×4 (03:05→19:20)
[2019-07-06] MEDS: ALBUTEROL SULFATE NEB 2.5 MG/0.5 ML INH 5 MG INHALATION ×4 (03:05→19:20)
[2019-07-06 04:51] LABS: Hematocrit 25.2 % (42.0-52.0); Immature Granulocyte Absolute 0.03 K/mm3 (0.00-0.031); Immature Granulocyte Percent A 0.4 % (0-0.5); Lymphocytes Absolute Auto 0.27 K/mm3 (0.9-3.2); Lymphocytes Percent Auto 3.3 % (18.3-44.2); Mean Corpuscular HGB Conc 27.4 g/dl (32-36); Mean Corpuscular Hemoglobin 23.8 pg (26-34); Mean Corpuscular Volume 86.9 fl (80-100); Mean Platelet Volume 10.4 fl (7.4-10.4); Monocytes Absolute Auto 0.3 K/mm3 (0.1-0.6); Monocytes Percent Auto 3.2 % (2.6-8.5); Neutrophils Absolute Auto 7.6 K/mm3 (1.3-6.7); Neutrophils Percent Auto 93.1 % (45.5-73.1); Platelet Count Result 233 k/mm3 (150-375); Red Cell Distribution Width 21.6 % (11.5-14.5); White Blood Count 8.1 K/mm3 (4.5-10.0)
[2019-07-06 05:09] LABS: Alanine Aminotransferase 21 U/L (4-50); Alkaline Phosphatase 210 U/L (38-126); Aspartate Amino Transferase 22 U/L (17-59); Bilirubin,Total 0.9 mg/dL (0.2-1.3); Blood Urea Nitrogen 31 mg/dL (9-20); Calcium 7.7 mg/dL (8.4-10.2); Carbon Dioxide 32 mmol/L (22-30); Chloride 95 mmol/L (98-107); Estimated CRCL calculation 72 ml/min; Estimated Glomerular Filt Rate 52; Glucose 137 mg/dL (75-110); Magnesium 1.8 mg/dL (1.6-2.3); Phosphorus 3.5 mg/dL (2.5-4.5); Potassium 4.3 mmol/L (3.4-5.0); Sodium 137 mmol/L (137-145)
[2019-07-06 05:19] LABS: Hemoglobin 6.9 g/dL (14.0-18.0)
[2019-07-06 05:21] LABS: Hypochromasia 2+ (NORMAL); Microcytosis 1+ (NORMAL); Platelet Estimate Adequate (Adequate)
[2019-07-06 05:22] LABS: Macrocytosis 1+ (NORMAL); Ovalocytes 1+ (NORMAL)
[2019-07-06] MEDS: POTASSIUM CHLORIDE 20 MEQ TABLET.ER 40 MEQ PO ×2 (07:51→17:40)
[2019-07-06] MEDS: predniSONE 20 MG TABLET 60 MG PO (07:52)
--- NOTE | 2019-07-06 08:00 | ECG_ITS ---
Measurements Intervals O'Brien Rate: 93 P: 23 VT: 138 QRS: 31 QRSD: 88 T: -34 QT: 312 QTc: 388 Interpretive Statements SINUS RHYTHM ATRIAL PREMATURE COMPLEX INCOMPLETE RIGHT BUNDLE BRANCH BLOCK LOW QRS VOLTAGE IN PRECORDIAL LEADS BORDERLINE ST-T WAVE ABNORMALITY- DIFFUSE LEADS BASELINE ARTIFACT- I, III, AVL, V1 BORDERLINE ECG Electronically Signed On 07-06-2019 9:30:02 CORPORATE LEGAL ASSISTANT by Epifanio Morton D.O.
[2019-07-06] MEDS: DORNASE ALFA INH SOLN 1 MG/ML 2.5 ML AMP 2.5 MG INHALATION ×2 (08:03→19:20)
[2019-07-06] MEDS: FUROSEMIDE INJ 40 MG/4 ML VIAL IV PUSH ×2 (09:08→17:40)
[2019-07-06] MEDS: FERROUS SULFATE 324 MG TABLET PO ×2 (09:08→17:40)
[2019-07-06] MEDS: FOLIC ACID 1 MG TABLET PO (09:09)
[2019-07-06] MEDS: PANTOPRAZOLE 40 MG TABLET PO (09:09)
[2019-07-06] MEDS: metOLazone 2.5 MG TABLET PO (09:10)
[2019-07-06] MEDS: MAGNESIUM OXIDE 200 MG TABLET PO ×2 (09:10→20:35)
[2019-07-06] MEDS: THIAMINE HCL 100 MG TABLET PO (09:10)
[2019-07-06] MEDS: METOPROLOL TARTRATE 50 MG TAB PO ×2 (09:11→20:35)
[2019-07-06] MEDS: NICOTINE (*PBKC) 21 MG PATCH 1 PATCH TRANSDERM (09:12)
[2019-07-06] MEDS: SILVERGEL (ELTA) 45 ML 1 APPLIC TOPICAL (09:13)
[2019-07-06] MEDS: ATORVASTATIN 40 MG TABLET 80 MG PO (10:01)
--- NOTE | 2019-07-06 10:19 | WPDANESPN ---
Anes - Prog Note Post-Op Date/Time: 07/06/19 10:19 Cardiovascular status: normal Respiratory status: normal Airway patency: baseline Mental status: baseline Post-Op hydration status: normal Vital Signs: Last Vital Signs Temp 36.7 C 07/06/19 09:45 Pulse 98 07/06/19 09:45 Resp 18 07/06/19 09:45 BP 113/59 L 07/06/19 09:45 Pulse Ox 94 07/06/19 09:45 I/O: Intake & Output 07/05/19 07/06/19 07/06/19 23:59 07:59 15:59 Intake Total 550 150 350 Output Total 950 750 Balance -400 -600 350 Laboratory Tests 07/06/19 04:37 07/06/19 04:37 07/03/19 07/05/19 07/05/19 18:35 10:44 12:45 WBC RBC Hgb 7.6 L Hct 28.0 L MCV MCH MCHC RDW Plt Count MPV Immature Gran % (Auto) Neut % (Auto) Lymph % (Auto) [place] % (Auto) Eos % (Auto) Baso % (Auto) Lymph # (Auto) [place] # (Auto) Eos # (Auto) Baso # (Auto) Abs Immat Gran (auto) Absolute Neuts (auto) Absolute Nucleated RBC Nucleated RBC % Platelet Estimate Hypochromasia Microcytosis Macrocytosis Ovalocytes Sodium Potassium Chloride Carbon Dioxide BUN Creatinine Estim Creat Clear Calc Estimated GFR Glucose POC Capillary Glucose 81 Calcium Phosphorus Magnesium Total Bilirubin AST ALT Alkaline Phosphatase Total Protein Albumin Blood Type A Positive Antibody Screen Negative Crossmatch See Detail 07/05/19 07/06/19 07/06/19 17:59 00:10 04:37 WBC 8.1 RBC 2.90 L Hgb 7.1 L 7.7 L 6.9 L* Hct 25.9 L 28.1 L 25.2 L MCV 86.9 MCH 23.8 L MCHC 27.4 L RDW 21.6 H Plt Count 233 MPV 10.4 Immature Gran % (Auto) 0.4 Neut % (Auto) 93.1 H Lymph % (Auto) 3.3 L [place] % (Auto) 3.2 Eos % (Auto) 0.0 Baso % (Auto) 0.0 L Lymph # (Auto) 0.27 L [place] # (Auto) 0.3 Eos # (Auto) 0.0 Baso # (Auto) 0.0 Abs Immat Gran (auto) 0.03 Absolute Neuts (auto) 7.6 H Absolute Nucleated RBC 0.0 Nucleated RBC % 0.0 Platelet Estimate Adequate Hypochromasia 2+ Microcytosis 1+ Macrocytosis 1+ Ovalocytes 1+ Sodium Potassium Chloride Carbon Dioxide BUN Creatinine Estim Creat Clear Calc Estimated GFR Glucose POC Capillary Glucose Calcium Phosphorus Magnesium Total Bilirubin AST ALT Alkaline Phosphatase Total Protein Albumin Blood Type Antibody Screen Crossmatch 07/06/19 04:37 WBC RBC Hgb Hct MCV MCH MCHC RDW Plt Count MPV Immature Gran % (Auto) Neut % (Auto) Lymph % (Auto) [place] % (Auto) Eos % (Auto) Baso % (Auto) Lymph # (Auto) [place] # (Auto) Eos # (Auto) Baso # (Auto) Abs Immat Gran (auto) Absolute Neuts (auto) Absolute Nucleated RBC Nucleated RBC % Platelet Estimate Hypochromasia Microcytosis Macrocytosis Ovalocytes Sodium 137 Potassium 4.3 Chloride 95 L Carbon Dioxide 32 H BUN 31 H Creatinine 1.40 H Estim Creat Clear Calc 72 Estimated GFR 52 L Glucose 137 H POC Capillary Glucose Calcium 7.7 L Phosphorus 3.5 Magnesium 1.8 Total Bilirubin 0.9 AST 22 ALT 21 Alkaline Phosphatase 210 H Total Protein 6.0 L Albumin 3.0 L Blood Type Antibody Screen Crossmatch Post-procedural complaints: none Patient Feedback: Patient satisfied with anesthetic care.
--- NOTE | 2019-07-06 10:22 | PM.IMPN ---
Progress Note: A&P Assessment and Plan (1) Severe anemia: Code(s): D64.9 - Anemia, unspecified Status: Acute Assessment and Plan: Hgb on arrival 6.3 and he received 2 units packed RBC. Hgb 6.9 this morning and he received another 1 unit. He reports black stools for the last [address] Snell consulted - appreciate input. EGD/colonoscopy revealed Will monitor H&H and transfuse as needed to keep Hgb > 7. Home Xarelto is held. (2) Acute on chronic combined systolic and diastolic CHF (congestive heart failure): Code(s): I50.43 - Acute on chronic combined systolic (congestive) and diastolic (congestive) heart failure Status: Acute Assessment and Plan: Patient follows with Dr Hurtado. Echocardiogram March 2019 demonstrated severe RV enlargment. Chest x-ray shows small bilateral pleural effusions, BNP 6330. Dr Rob consulted - appreciate further recommendations regarding diuresis. He remains on metolazone and BID IV Lasix today. Monitor K and Mg, on scheduled oral replacement of both. (3) Anasarca: Code(s): R60.1 - Generalized edema Status: Acute Assessment and Plan: [place] to be secondary to above. Bilirubin on arrival 0.7, ALT and AST within normal limits, alk-phos is elevated. Check abdominal ultrasound since he does have a reported history of alcohol in excess. (4) COPD (chronic obstructive pulmonary disease): Qualifiers: COPD type: unspecified COPD Qualified Code(s): J44.9 - Chronic obstructive pulmonary disease, unspecified Code(s): J44.9 - Chronic obstructive pulmonary disease, unspecified Status: Acute Assessment and Plan: Continue home symbicort. He reports a baseline cough, improved today. No fevers or leukocytosis. Continue scheduled nebulized bronchodilators, Pulmozyme, Mucinex and Cornet, oral prednisone. Dr. Rob has consulted Dr. Foner. (5) Tobacco abuse: Code(s): Z72.0 - Tobacco use Status: Acute Assessment and Plan: Smoking cessation discussed. Nicotine patch ordered. (6) Obstructive sleep apnea: Code(s): G47.33 - Obstructive sleep apnea (adult) (pediatric) Status: Acute Assessment and Plan: Discussed the cardiopulmonary risks of untreated sleep apnea which is likely contributing to his heart failure. Apnea link 03/30/19 during one of his previous admissions is positive and it is noted that he declined further evaluation with sleep study. Recommend sleep study outpatient. (7) Paroxysmal atrial fibrillation: Code(s): I48.0 - Paroxysmal atrial fibrillation Status: Chronic Assessment and Plan: Cardiology following. Continue beta-blockade with metoprolol. Home Xarelto on hold due to GI bleed. (8) Venous stasis ulcers of both lower extremities: Code(s): I83.019 - Varicose veins of right lower extremity with ulcer of unspecified site; I83.029 - Varicose veins of left lower extremity with ulcer of unspecified site; L97.919 - Non-pressure chronic ulcer of unspecified part of right lower leg with unspecified severity; L97.929 - Non-pressure chronic ulcer of unspecified part of left lower leg with unspecified severity Status: Acute Assessment and Plan: Seen by wound nurse, cover with Mepilex dressings. Lower legs are erythematous but do not appear to be acutely infected at this time. (9) CKD (chronic kidney disease): Qualifiers: Chronic kidney disease stage: unspecified stage Qualified Code(s): N18.9 - Chronic kidney disease, unspecified Code(s): N18.9 - Chronic kidney disease, unspecified Status: Acute Assessment and Plan: Stable. Cr has been up to 2.4 in 03/2019. Will monitor re
--- NOTE | 2019-07-06 11:26 | PM.PNCARD ---
Progress Note: A&P Additional Plan The patient clearly has advanced right heart failure and advanced pulmonary hypertension. The etiology for this has been presumed according to others notes to be untreated sleep apnea which probably is the case. If we have documented sleep apnea in the records then treating that with PAP therapy is the cornerstone of this treatment. If he does not have sleep apnea than evaluation by a pulmonary hypertension specialist at a tertiary center should be considered following this discharge because he does have markedly elevated PA pressures by echo. \ Management is currently complicated by suspected GI bleeding significant anemia and need to discontinue anticoagulation treatment. Time Spent With Patient Time with patient: 15 - 25 minutes Subjective Date/time seen: Follow-up visit: 07/06/19 11:26 Interval history: 63-year-old gentleman with a history of right-sided heart failure which has been a recurring issue he states 3 or 4 times a year for a number of years. Consistent echocardiographic findings appear to be well preserved left-sided systolic function but evidence of dilated dysfunctional right ventricle and severe pulmonary hypertension he denies a history of pulmonary embolism. The patient according to the records and notes has a history of untreated sleep apnea but he disputes this indicating that he does not think he has ever been told that he has sleep apnea at least by what he tells me this morning. Exam Const: General: comfortable and no acute distress HENMT: Mouth: Yes dry mucous membranes Eyes: Sclera: sclerae normal Pupils: Equal, round and reactive pupils present Neck: Neck: supple Thyroid: thyroid normal Other: Jugular venous distention difficult to assess given his obesity Resp: Effort & Inspection: normal respiratory effort Auscultation: clear to auscultation bilaterally Other: Breath sounds are distant because of obesity Cardio: Rate: regular rate Rhythm: regular rhythm GI: Auscultation: normal bowel sounds Skin: Other: Chronic changes of venous stasis Neuro: Cognition (Neuro): normal cognition Objective Data Vital Signs Vital Signs: Vital Signs - 24 hr 07/05/19 11:53 07/05/19 12:00 07/05/19 12:03 Temperature Pulse Rate 90 83 92 Respiratory Rate 24 H 23 H Blood Pressure 140/88 116/57 L Pulse Oximetry 95 94 07/05/19 12:13 07/05/19 14:00 07/05/19 14:22 Temperature 36.6 C Pulse Rate 89 91 93 Respiratory Rate 28 H 17 18 Blood Pressure 125/70 112/79 Pulse Oximetry 97 99 07/05/19 14:32 07/05/19 16:00 07/05/19 20:05 Temperature Pulse Rate 94 82 91 Respiratory Rate 18 18 Blood Pressure Pulse Oximetry 07/05/19 20:10 07/05/19 20:15 07/05/19 20:42 Temperature Pulse Rate 92 91 Respiratory Rate 18 Blood Pressure Pulse Oximetry 94 07/05/19 21:47 07/06/19 03:05 07/06/19 03:16 Temperature 36.3 C L Pulse Rate 99 94 94 Respiratory Rate 20 18 18 Blood Pressure 145/91 H Pulse Oximetry 97 07/06/19 05:58 07/06/19 06:30 07/06/19 06:45 Temperature 36.4 C L 36.2 C L 36.2 C L Pulse Rate 94 108 H 96 Respiratory Rate 18 20 18 Blood Pressure 110/55 L 128/69 115/60 Pulse Oximetry 97 96 99 07/06/19 07:45 07/06/19 08:05 07/06/19 08:19 Temperature 36.4 C L Pulse Rate 92 97 94 Respiratory Rate 19 24 H 24 H Blood Pressure 117/55 L Pulse Oximetry 100 94 07/06/19 08:45 07/06/19 09:11 07/06/19 09:45 Temperature 36.7 C 36.7 C Pulse Rate 97 95 98 Respiratory Rate 20 18 Blood Pressure 119/54 L 113/59 L Pulse Oximetry 100 94 Intake/Output Intake/Output: Intake & Output 07/03/19 07/04/19 07/05/19 07/06/19 23:59 23:59 23:59 23:59 Intake Total 0 2050 1190 500 Output Total 1365 2800 750 Balance 0 055 -1610 -250 Meds/Results Medications: Active Medications Generic Name Dose Route Start Last Admin Trade Name Freq PRN Reason Stop Dose Admin Albuterol 5 mg 07/03/19 20:00 07/06/19 08:
--- NOTE | 2019-07-06 12:13 | WPDGIPROGNO ---
Progress Note: A&P Additional Plan Patient alert and comfortable this morning. No signs of additional GI bleeding reported. Patient denies abdominal pain. Physical exam patient is alert. Vital signs stable. He is anicteric. Lungs are clear. Abdomen is distended. Obese. Soft and nontender. Periumbilical hernia noted. Extremities with chronic stasis dermatitis. Impression 1. Iron deficiency anemia. He may have a component of chronic disease as well. Profound anemia identified. Iron replacement in place. 2. Occult blood in stool. No active bleeding reported. Internal hemorrhoids noted. As colon polyps also identified now resected. 3. Colon polyps. Await histology. These appeared benign. Follow-up colonoscopy in 3-5 years advised. 4. Gastric polyp. Histology pending usually benign. Usually minimal cancer risk. Now resected. 5. Gastritis. Identified by endoscopy. May have contributed to GI blood loss. Patient now on proton pump inhibitor. 6. Atrial fibrillation. Plan is to hold anticoagulation given his profound anemia if at all possible. 7. Pulmonary hypertension. Cardiology service is evaluating. Patient appears to have sleep apnea as a contributing cause. Plan is for iron replacement. Continue proton pump inhibitor. Limit anticoagulation if at all possible. Subjective Date/time seen: 07/06/19 12:13 Objective Data Vital Signs Vital Signs: Vital Signs - 24 hr 07/05/19 14:00 07/05/19 14:22 07/05/19 14:32 Temperature 36.6 C Pulse Rate 91 93 94 Respiratory Rate 17 18 18 Blood Pressure 112/79 Pulse Oximetry 99 07/05/19 16:00 07/05/19 20:05 07/05/19 20:10 Temperature Pulse Rate 82 91 Respiratory Rate 18 Blood Pressure Pulse Oximetry 94 07/05/19 20:15 07/05/19 20:42 07/05/19 21:47 Temperature 36.3 C L Pulse Rate 92 91 99 Respiratory Rate 18 20 Blood Pressure 145/91 H Pulse Oximetry 97 07/06/19 03:05 07/06/19 03:16 07/06/19 05:58 Temperature 36.4 C L Pulse Rate 94 94 94 Respiratory Rate 18 18 18 Blood Pressure 110/55 L Pulse Oximetry 97 07/06/19 06:30 07/06/19 06:45 07/06/19 07:45 Temperature 36.2 C L 36.2 C L 36.4 C L Pulse Rate 108 H 96 92 Respiratory Rate 20 18 19 Blood Pressure 128/69 115/60 117/55 L Pulse Oximetry 96 99 100 07/06/19 08:00 07/06/19 08:05 07/06/19 08:19 Temperature Pulse Rate 98 97 94 Respiratory Rate 18 24 H 24 H Blood Pressure 113/59 L Pulse Oximetry 94 94 07/06/19 08:45 07/06/19 09:11 07/06/19 09:45 Temperature 36.7 C 36.7 C Pulse Rate 97 95 98 Respiratory Rate 20 18 Blood Pressure 119/54 L 113/59 L Pulse Oximetry 100 94 Intake/Output Intake/Output: Intake & Output 07/03/19 07/04/19 07/05/19 07/06/19 23:59 23:59 23:59 23:59 Intake Total 0 2050 1190 500 Output Total 1365 2800 750 Balance 0 449 -4824 -906 Meds/Results Medications: Active Medications Generic Name Dose Route Start Last Admin Trade Name Freq PRN Reason Stop Dose Admin Albuterol 5 mg 07/03/19 20:00 07/06/19 08:03 Albuterol Sulf Neb 2.5mg/0.5ml INHALATION 5 mg Q6HRT PAULINA Administration Atorvastatin Calcium 80 mg 07/04/19 09:00 07/06/19 10:01 Lipitor PO 80 mg DAILY PAULINA Administration Budesonide/Formoterol Fumarate 1 puff 07/04/19 08:00 07/06/19 08:03 Symbicort 160-4.5 Mcg (*Sp) Inhaler INHALATION 1 puff Q12HRT PAULINA Administration Docusate Sodium 100 mg 07/05/19 09:02 Colace Capsule PO Q12HR PRN Constipation Dornase [place] 2.5 mg 07/04/19 20:00 07/06/19 08:03 Pulmozyme INHALATION 2.5 mg Q12HRT PAULINA Administration Ferrous Sulfate 324 mg 07/05/19 17:00 07/06/19 09:08 Ferrous Sulfate PO 324 mg BIDWM PAULINA Administration Folic Acid 1 mg 07/06/19 09:00 07/06/19 09:09 Folic Acid PO 1 mg DAILY PAULINA Administration Furosemide 40 mg 07/05/19 17:20 07/06/19 09:08 Lasix Inj IV PUSH 40 mg BID PAULINA Administration Guaifenesin 600 mg 07/04/19
[2019-07-06 13:36] LABS: Basophils Percent Auto 0.1 % (0.2-1.2); Hematocrit 28.8 % (42.0-52.0); Hemoglobin 8.1 g/dL (14.0-18.0); Immature Granulocyte Absolute 0.03 K/mm3 (0.00-0.031); Immature Granulocyte Percent A 0.4 % (0-0.5); Lymphocytes Absolute Auto 0.23 K/mm3 (0.9-3.2); Lymphocytes Percent Auto 2.9 % (18.3-44.2); Mean Corpuscular HGB Conc 28.1 g/dl (32-36); Mean Corpuscular Hemoglobin 24.3 pg (26-34); Mean Corpuscular Volume 86.5 fl (80-100); Mean Platelet Volume 10.6 fl (7.4-10.4); Monocytes Absolute Auto 0.4 K/mm3 (0.1-0.6); Monocytes Percent Auto 5.4 % (2.6-8.5); Neutrophils Absolute Auto 7.3 K/mm3 (1.3-6.7); Neutrophils Percent Auto 91.2 % (45.5-73.1); Platelet Count Result 255 k/mm3 (150-375); Red Blood Count 3.33 M/mm3 (4.6-6.20); Red Cell Distribution Width 20.9 % (11.5-14.5)
[2019-07-06 14:18] LABS: Anisocytosis 1+ (NORMAL); Hypochromasia 2+ (NORMAL); Ovalocytes 1+ (NORMAL); Platelet Estimate Adequate (Adequate)
[2019-07-07] VITALS (18 sets, daily range): BP systolic 113–132; BP diastolic 72–82; PULSE 80–102; RESP 18–22; TEMP 36.2–36.7; O2SAT 83–98
[2019-07-07] MEDS: MELATONIN 3 MG TABLET PO ×2 (00:06→20:34)
[2019-07-07] MEDS: ALBUTEROL SULFATE NEB 2.5 MG/0.5 ML INH 5 MG INHALATION ×4 (02:40→21:16)
[2019-07-07] MEDS: IPRATROPIUM BR 0.02% INH SOLN 0.5 MG/2.5 ML VIAL INHALATION ×4 (02:40→21:15)
[2019-07-07 06:13] LABS: Basophils Percent Auto 0.1 % (0.2-1.2); Hematocrit 26.4 % (42.0-52.0); Hemoglobin 7.6 g/dL (14.0-18.0); Immature Granulocyte Absolute 0.04 K/mm3 (0.00-0.031); Immature Granulocyte Percent A 0.5 % (0-0.5); Lymphocytes Percent Auto 3.5 % (18.3-44.2); Mean Corpuscular HGB Conc 28.8 g/dl (32-36); Mean Corpuscular Hemoglobin 24.9 pg (26-34); Mean Corpuscular Volume 86.6 fl (80-100); Mean Platelet Volume 10.3 fl (7.4-10.4); Monocytes Absolute Auto 0.7 K/mm3 (0.1-0.6); Monocytes Percent Auto 8.2 % (2.6-8.5); Neutrophils Absolute Auto 7.5 K/mm3 (1.3-6.7); Neutrophils Percent Auto 87.7 % (45.5-73.1); Platelet Count Result 218 k/mm3 (150-375); Red Blood Count 3.05 M/mm3 (4.6-6.20); Red Cell Distribution Width 20.6 % (11.5-14.5); White Blood Count 8.5 K/mm3 (4.5-10.0)
[2019-07-07 06:27] LABS: Blood Urea Nitrogen 35 mg/dL (9-20); Calcium 8.1 mg/dL (8.4-10.2); Carbon Dioxide 35 mmol/L (22-30); Chloride 96 mmol/L (98-107); Estimated CRCL calculation 78 ml/min; Estimated Glomerular Filt Rate 56; Glucose 127 mg/dL (75-110); Magnesium 1.9 mg/dL (1.6-2.3); Phosphorus 3.4 mg/dL (2.5-4.5); Potassium 4.4 mmol/L (3.4-5.0); Sodium 136 mmol/L (137-145)
[2019-07-07 07:28] LABS: Platelet Estimate Adequate (Adequate)
[2019-07-07 07:29] LABS: Hypochromasia 1+ (NORMAL); Poikilocytosis 2+ (NORMAL)
[2019-07-07 07:30] LABS: Burr Cells 1+ (NORMAL); Ovalocytes 2+ (NORMAL); Stomatocytes 1+ (NORMAL); Target Cells 1+ (NORMAL)
--- NOTE | 2019-07-07 07:32 | WPDGIPROGNO ---
Progress Note: A&P Additional Plan Patient comfortable this morning. He reports no obvious GI blood loss. He denies abdominal pain. Physical exam reveals him to be alert. He is anicteric. Abdomen is obese. Umbilical hernia noted. Bowel sounds are present soft nontender no obvious organomegaly. Ultrasound of right upper quadrant reveals fatty liver. LFTs normal. Hemoglobin 7.6, slight decline from yesterday. Impression 1. Iron deficiency anemia. Anemia may be multifactorial. Could be related to colon polyps but contribution from chronic disease is not excluded. 2. Multiple colon polyps. Histology still pending. Gastric polyp histology also pending probably benign 3. Congestive heart failure. Anasarca appears to be on this basis. 4. Obesity. 5. Atrial fibrillation. Given profound significant anemia would advise holding anticoagulation if at all possible. Plan is to await colon polyp histology. Follow-up colonoscopy in several years advised. Iron replacement in progress. Subjective Date/time seen: 07/07/19 07:32 Objective Data Vital Signs Vital Signs: Vital Signs - 24 hr 07/06/19 07:45 07/06/19 08:00 07/06/19 08:05 Temperature 36.4 C L Pulse Rate 92 98 97 Respiratory Rate 19 18 24 H Blood Pressure 117/55 L 113/59 L Pulse Oximetry 100 94 94 07/06/19 08:19 07/06/19 08:45 07/06/19 09:11 Temperature 36.7 C Pulse Rate 94 97 95 Respiratory Rate 24 H 20 Blood Pressure 119/54 L Pulse Oximetry 100 07/06/19 09:45 07/06/19 14:00 07/06/19 14:01 Temperature 36.7 C 36.8 C Pulse Rate 98 88 80 Respiratory Rate 18 20 24 H Blood Pressure 113/59 L 119/73 Pulse Oximetry 94 96 07/06/19 14:08 07/06/19 19:20 07/06/19 19:23 Temperature Pulse Rate 78 92 Respiratory Rate 24 H 22 H Blood Pressure Pulse Oximetry 95 07/06/19 19:30 07/06/19 20:35 07/06/19 21:20 Temperature 36.1 C L Pulse Rate 94 94 100 Respiratory Rate 22 H 20 Blood Pressure 118/66 Pulse Oximetry 96 07/06/19 22:30 07/07/19 02:40 07/07/19 02:51 Temperature Pulse Rate 93 91 90 Respiratory Rate 22 H 22 H 22 H Blood Pressure Pulse Oximetry 07/07/19 06:00 Temperature 36.2 C L Pulse Rate 94 Respiratory Rate 22 H Blood Pressure 121/72 Pulse Oximetry 97 Intake/Output Intake/Output: Intake & Output 07/04/19 07/05/19 07/06/19 07/07/19 23:59 23:59 23:59 23:59 Intake Total 2050 1190 1610 450 Output Total 1365 2800 2250 950 Balance 085 -1616 -640 -500 Meds/Results Medications: Active Medications Generic Name Dose Route Start Last Admin Trade Name Freq PRN Reason Stop Dose Admin Albuterol 5 mg 07/03/19 20:00 07/07/19 02:40 Albuterol Sulf Neb 2.5mg/0.5ml INHALATION 5 mg Q6HRT PAULINA Administration Atorvastatin Calcium 80 mg 07/04/19 09:00 07/06/19 10:01 Lipitor PO 80 mg DAILY PAULINA Administration Budesonide/Formoterol Fumarate 1 puff 07/04/19 08:00 07/06/19 19:26 Symbicort 160-4.5 Mcg (*Sp) Inhaler INHALATION 1 puff Q12HRT PAULINA Administration Docusate Sodium 100 mg 07/05/19 09:02 Colace Capsule PO Q12HR PRN Constipation Dornase [place] 2.5 mg 07/04/19 20:00 07/06/19 19:20 Pulmozyme INHALATION 2.5 mg Q12HRT PAULINA Administration Ferrous Sulfate 324 mg 07/05/19 17:00 07/06/19 17:40 Ferrous Sulfate PO 324 mg BIDWM PAULINA Administration Folic Acid 1 mg 07/06/19 09:00 07/06/19 09:09 Folic Acid PO 1 mg DAILY PAULINA Administration Furosemide 40 mg 07/05/19 17:20 07/06/19 17:40 Lasix Inj IV PUSH 40 mg BID PAULINA Administration Guaifenesin 600 mg 07/04/19 21:00 07/06/19 20:35 Mucinex 12 Hr Tab PO 600 mg Q12HR PAULINA Administration Ipratropium [place] 0.5 mg 07/03/19 20:00 07/07/19 02:40 Atrovent Neb INHALATION 0.5 mg Q6HRT PAULINA Administration Magnesium Oxide 200 mg 07/05/19 21:00 07/06/19 20:35 Mag-Ox PO 200 mg Q12HR PAULINA Administration Melatonin 3 mg 07/07/19 21:00
--- NOTE | 2019-07-07 07:36 | WPDGIPROGNO ---
Progress Note: A&P Additional Plan Patient alert. Abdomen is less tender this morning. She has had no additional bleeding. Physical exam reveals her to be alert. Vital signs stable. Lungs are clear. Abdomen is soft mild left lower quadrant tenderness appreciated. Impression 1. Bloody diarrhea. 2. Abnormal CT scan. Colitis is identified. Suspect infectious etiology. Ischemia and inflammatory bowel disease not excluded. 3. History of colon polyps. Adenoma was identified in 2018. Plan is to continue broad-spectrum antibiotic coverage. IV fluid rehydration will plan colonoscopy in the morning given the significant findings on CT scan. Subjective Date/time seen: 07/07/19 07:36 Objective Data Vital Signs Vital Signs: Vital Signs - 24 hr 07/06/19 07:45 07/06/19 08:00 07/06/19 08:05 Temperature 36.4 C L Pulse Rate 92 98 97 Respiratory Rate 19 18 24 H Blood Pressure 117/55 L 113/59 L Pulse Oximetry 100 94 94 07/06/19 08:19 07/06/19 08:45 07/06/19 09:11 Temperature 36.7 C Pulse Rate 94 97 95 Respiratory Rate 24 H 20 Blood Pressure 119/54 L Pulse Oximetry 100 07/06/19 09:45 07/06/19 14:00 07/06/19 14:01 Temperature 36.7 C 36.8 C Pulse Rate 98 88 80 Respiratory Rate 18 20 24 H Blood Pressure 113/59 L 119/73 Pulse Oximetry 94 96 07/06/19 14:08 07/06/19 19:20 07/06/19 19:23 Temperature Pulse Rate 78 92 Respiratory Rate 24 H 22 H Blood Pressure Pulse Oximetry 95 07/06/19 19:30 07/06/19 20:35 07/06/19 21:20 Temperature 36.1 C L Pulse Rate 94 94 100 Respiratory Rate 22 H 20 Blood Pressure 118/66 Pulse Oximetry 96 07/06/19 22:30 07/07/19 02:40 07/07/19 02:51 Temperature Pulse Rate 93 91 90 Respiratory Rate 22 H 22 H 22 H Blood Pressure Pulse Oximetry 07/07/19 06:00 Temperature 36.2 C L Pulse Rate 94 Respiratory Rate 22 H Blood Pressure 121/72 Pulse Oximetry 97 Intake/Output Intake/Output: Intake & Output 07/04/19 07/05/19 07/06/19 07/07/19 23:59 23:59 23:59 23:59 Intake Total 2050 1190 1610 450 Output Total 1275 2800 2250 018 Balance 660 -7655 -325 -500 Meds/Results Medications: Active Medications Generic Name Dose Route Start Last Admin Trade Name Freq PRN Reason Stop Dose Admin Albuterol 5 mg 07/03/19 20:00 07/07/19 02:40 Albuterol Sulf Neb 2.5mg/0.5ml INHALATION 5 mg Q6HRT PAULINA Administration Atorvastatin Calcium 80 mg 07/04/19 09:00 07/06/19 10:01 Lipitor PO 80 mg DAILY PAULINA Administration Budesonide/Formoterol Fumarate 1 puff 07/04/19 08:00 07/06/19 19:26 Symbicort 160-4.5 Mcg (*Sp) Inhaler INHALATION 1 puff Q12HRT PAULINA Administration Docusate Sodium 100 mg 07/05/19 09:02 Colace Capsule PO Q12HR PRN Constipation Dornase [place] 2.5 mg 07/04/19 20:00 07/06/19 19:20 Pulmozyme INHALATION 2.5 mg Q12HRT PAULINA Administration Ferrous Sulfate 324 mg 07/05/19 17:00 07/06/19 17:40 Ferrous Sulfate PO 324 mg BIDWM PAULINA Administration Folic Acid 1 mg 07/06/19 09:00 07/06/19 09:09 Folic Acid PO 1 mg DAILY PAULINA Administration Furosemide 40 mg 07/05/19 17:20 07/06/19 17:40 Lasix Inj IV PUSH 40 mg BID PAULINA Administration Guaifenesin 600 mg 07/04/19 21:00 07/06/19 20:35 Mucinex 12 Hr Tab PO 600 mg Q12HR PAULINA Administration Ipratropium [place] 0.5 mg 07/03/19 20:00 07/07/19 02:40 Atrovent Neb INHALATION 0.5 mg Q6HRT PAULINA Administration Magnesium Oxide 200 mg 07/05/19 21:00 07/06/19 20:35 Mag-Ox PO 200 mg Q12HR PAULINA Administration Melatonin 3 mg 07/07/19 21:00 Melatonin PO HS PAULINA Metolazone 2.5 mg 07/04/19 15:30 07/06/19 09:10 Zaroxolyn PO 2.5 mg QAM PAULINA Administration Metoprolol Tartrate 50 mg 07/05/19 21:00 07/06/19 20:35 Lopressor PO 50 mg Q12HR PAULINA Administration Nicotine 1 patch 07/05/19 09:02 07/06/19 09:12 Nicoderm Cq 21 Mg TRANSDERM 1 patch QAM PAULINA Ad
[2019-07-07] MEDS: DORNASE ALFA INH SOLN 1 MG/ML 2.5 ML AMP 2.5 MG INHALATION ×2 (09:05→21:16)
[2019-07-07] MEDS: FERROUS SULFATE 324 MG TABLET PO ×2 (09:50→16:30)
[2019-07-07] MEDS: ATORVASTATIN 40 MG TABLET 80 MG PO (09:50)
[2019-07-07] MEDS: MAGNESIUM OXIDE 200 MG TABLET PO ×2 (09:51→20:33)
[2019-07-07] MEDS: metOLazone 2.5 MG TABLET PO (09:51)
[2019-07-07] MEDS: predniSONE 20 MG TABLET 60 MG PO (09:51)
[2019-07-07] MEDS: FOLIC ACID 1 MG TABLET PO (09:51)
[2019-07-07] MEDS: PANTOPRAZOLE 40 MG TABLET PO (09:51)
[2019-07-07] MEDS: THIAMINE HCL 100 MG TABLET PO (09:51)
[2019-07-07] MEDS: POTASSIUM CHLORIDE 20 MEQ TABLET.ER 40 MEQ PO ×2 (09:51→16:30)
[2019-07-07] MEDS: FUROSEMIDE INJ 40 MG/4 ML VIAL IV PUSH ×2 (09:51→16:31)
[2019-07-07] MEDS: METOPROLOL TARTRATE 50 MG TAB PO ×2 (09:52→20:33)
[2019-07-07] MEDS: NICOTINE (*PBKC) 21 MG PATCH 1 PATCH TRANSDERM (09:52)
[2019-07-07] MEDS: SILVERGEL (ELTA) 45 ML 1 APPLIC TOPICAL (09:55)
--- NOTE | 2019-07-07 14:04 | PM.IMPN ---
Progress Note: A&P Assessment and Plan (1) Severe anemia: Code(s): D64.9 - Anemia, unspecified Status: Acute Assessment and Plan: Hgb on arrival 6.3, has received a total of 3 units packed RBCs over this admission. H&H low but stable today at 7.6, 26.4%. He reports black stools for the last [address] Snell consulted - appreciate input. EGD/colonoscopy revealed gastritis, colon polyp, and internal hemorrhoids. Will monitor H&H and transfuse as needed to keep Hgb > 7. Home Xarelto is held. (2) Acute on chronic combined systolic and diastolic CHF (congestive heart failure): Code(s): I50.43 - Acute on chronic combined systolic (congestive) and diastolic (congestive) heart failure Status: Acute Assessment and Plan: Patient follows with Dr Hurtado. Echocardiogram demonstrated severe RV enlargement. Dr Rob consulted - appreciate further recommendations regarding diuresis. He remains on metolazone and BID IV Lasix today. Monitoring K and Mg, on scheduled oral replacement of both. (3) Anasarca: Code(s): R60.1 - Generalized edema Status: Acute Assessment and Plan: [place] to be secondary to above. Improving. Bilirubin on arrival 0.7, ALT and AST within normal limits, alk-phos is elevated. Abdominal ultrasound shows hepatic steatosis not likely to be contributing. (4) COPD (chronic obstructive pulmonary disease): Qualifiers: COPD type: unspecified COPD Qualified Code(s): J44.9 - Chronic obstructive pulmonary disease, unspecified Code(s): J44.9 - Chronic obstructive pulmonary disease, unspecified Status: Acute Assessment and Plan: Continue home symbicort. He reports a baseline cough, improved today. No fevers or leukocytosis. Continue scheduled nebulized bronchodilators, Pulmozyme, Mucinex and [place], oral prednisone. Dr. Rob has consulted Dr. Foner. (5) Tobacco abuse: Code(s): Z72.0 - Tobacco use Status: Acute Assessment and Plan: Smoking cessation discussed. Nicotine patch ordered. (6) Obstructive sleep apnea: Code(s): G47.33 - Obstructive sleep apnea (adult) (pediatric) Status: Acute Assessment and Plan: Discussed the cardiopulmonary risks of untreated sleep apnea which is likely contributing to his heart failure. Apnea link 03/30/19 during one of his previous admissions is positive and it is noted that he declined further evaluation with sleep study. Recommend sleep study outpatient. Discussed this with patient and he is not interested. He attempted wearing CPAP last night for about 1 hour and did not tolerate it. (7) Paroxysmal atrial fibrillation: Code(s): I48.0 - Paroxysmal atrial fibrillation Status: Chronic Assessment and Plan: Cardiology following. Continue beta-blockade with metoprolol. Home Xarelto on hold due to GI bleed. (8) Venous stasis ulcers of both lower extremities: Code(s): I83.019 - Varicose veins of right lower extremity with ulcer of unspecified site; I83.029 - Varicose veins of left lower extremity with ulcer of unspecified site; L97.919 - Non-pressure chronic ulcer of unspecified part of right lower leg with unspecified severity; L97.929 - Non-pressure chronic ulcer of unspecified part of left lower leg with unspecified severity Status: Acute Assessment and Plan: Seen by wound nurse, cover with Mepilex dressings. Lower legs are erythematous but do not appear to be acutely infected at this time. (9) CKD (chronic kidney disease): Qualifiers: Chronic kidney disease stage: unspecified stage Qualified Code(s): N18.9 - Chronic kidney disease, unspecified Code(s): N18.9 - Chronic kidne
--- NOTE | 2019-07-07 16:05 | PM.CNPUL ---
Assessment and Plan Assessment and plan (1) Pulmonary hypertension: Code(s): I27.20 - Pulmonary hypertension, unspecified Status: Acute Assessment and Plan: Noted on echocardiogram with an RVSP 56 mm Hg on echo March 27, 2019; right heart dysfunction, mild aortic stenosis, mod TR, systolic and diastolic dysfunction. He has enough sleep disordered breathing to account for his RVSP of 56 mm Hg. He wants no evaluation for this. I agree with Dr. Lawler's observation that he would be a candidate for tertiary evaluation of his pulmonary hypertension if he did not have significant sleep apnea. His ApneaLink Mar 31, 2019 showed significant disease. He does not understand the severity of his multiple issues, mainly does not want to pursue more therapy. He had a suboptimal experience with APAP in the hospital for 1 hour last night now will not agree to any more of it. A formal sleep test would be more accurate and allow better selection of mask and pressures. He does not appear to want to reconsider. (2) Right-sided heart failure: Qualifiers: Heart failure chronicity: acute on chronic Qualified Code(s): I50.813 - Acute on chronic right heart failure Code(s): I50.810 - Right heart failure, unspecified Status: Acute Assessment and Plan: due to COPD and sleep issues (3) COPD (chronic obstructive pulmonary disease): Qualifiers: COPD type: unspecified COPD Qualified Code(s): J44.9 - Chronic obstructive pulmonary disease, unspecified Code(s): J44.9 - Chronic obstructive pulmonary disease, unspecified Status: Acute Assessment and Plan: on Symbicort and Duonebs, cost sensitive regarding Symbicort; offered to arrange nebulized meds to replace Symbicort to decreased cost- no interested. The substitution would be Brovana and budesonide b.i.d and stop Symbicort. (4) Obstructive sleep apnea: Code(s): G47.33 - Obstructive sleep apnea (adult) (pediatric) Status: Acute Assessment and Plan: No interest in further evaluation of his sleep disordered breathing; he had an ApneaLink 03-31-2019 in the hospital; AHI was 36, lowest sat 77%, desaturated 56 x per hour, spent 127 min below 88% which was 31% of the study. 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 He needs an inlab study, not interested at this point. (5) Tobacco abuse: Code(s): Z72.0 - Tobacco use Status: Acute Assessment and Plan: Not interested in cessation. $1 per pack, rolls his own, still > $700/annually even at this torres. (6) Hypoxemia: Code(s): R09.02 - Hypoxemia Status: Acute Assessment and Plan: Now on 2 L/min, did not wear O2 before admission; he is not sure that he would want O2 at home as he smokes and does not plan to quit. Will wean as tolerated. His pO2 was 65.5 on admission. He may require O2 at discharge. Will plan Home O2 evaluation at discharge. History of Present Illness History of Present Illness Consult date: 07/07/19 Requesting physician: Veronica Kingsley PA-C Reason for consult: other (COPD, OLIVE, right heart failure) Chief complaint: Fluid retention Narrative: NEW CONSULT: reason for consult: COPD, tobacco, OLIVE PMH: DM II, mod pulm HTN, dCHF, atrial fib Solo Krishnan is a 63 yo man who has smoked since age 13, rolls his own cigarettes and smokes 2 packs per day. He was Dr. Mcbride' patient for 27 years, now sees Dr. Viveros who manages his COPD with Symbicort and Duonebs. He has not had a flu vaccine ever, last pneumonia vaccine was 2013 with his [place]. He was admitted July 03 with increased shortness of breath, in dCHF with increased swelling of the lower extremities over the last 3 weeks. He has had swelling of his lower legs he says for 30 or more years. 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
[2019-07-08] VITALS (10 sets, daily range): BP systolic 106–127; BP diastolic 70–73; PULSE 68–89; RESP 18–20; TEMP 36.4–37; O2SAT 88–96
[2019-07-08] MEDS: ALBUTEROL SULFATE NEB 2.5 MG/0.5 ML INH 5 MG INHALATION ×3 (02:29→14:39)
[2019-07-08] MEDS: IPRATROPIUM BR 0.02% INH SOLN 0.5 MG/2.5 ML VIAL INHALATION ×3 (02:30→14:39)
[2019-07-08 05:44] LABS: Basophils Percent Auto 0.1 % (0.2-1.2); Eosinophils Percent Auto 0.1 % (0-4.4); Hematocrit 28.9 % (42.0-52.0); Hemoglobin 7.9 g/dL (14.0-18.0); Immature Granulocyte Absolute 0.06 K/mm3 (0.00-0.031); Immature Granulocyte Percent A 0.7 % (0-0.5); Lymphocytes Absolute Auto 0.43 K/mm3 (0.9-3.2); Mean Corpuscular HGB Conc 27.3 g/dl (32-36); Mean Corpuscular Hemoglobin 24.2 pg (26-34); Mean Corpuscular Volume 88.4 fl (80-100); Mean Platelet Volume 10.3 fl (7.4-10.4); Monocytes Absolute Auto 0.8 K/mm3 (0.1-0.6); Monocytes Percent Auto 8.8 % (2.6-8.5); Neutrophils Absolute Auto 7.4 K/mm3 (1.3-6.7); Neutrophils Percent Auto 85.3 % (45.5-73.1); Platelet Count Result 216 k/mm3 (150-375); Red Blood Count 3.27 M/mm3 (4.6-6.20); Red Cell Distribution Width 20.2 % (11.5-14.5); White Blood Count 8.6 K/mm3 (4.5-10.0)
[2019-07-08 05:56] LABS: Blood Urea Nitrogen 37 mg/dL (9-20); Calcium 8.1 mg/dL (8.4-10.2); Carbon Dioxide 38 mmol/L (22-30); Chloride 89 mmol/L (98-107); Estimated CRCL calculation 78 ml/min; Estimated Glomerular Filt Rate 56; Glucose 121 mg/dL (75-110); Magnesium 1.8 mg/dL (1.6-2.3); Phosphorus 3.4 mg/dL (2.5-4.5); Potassium 4.4 mmol/L (3.4-5.0); Sodium 136 mmol/L (137-145)
[2019-07-08 06:54] LABS: Hypochromasia 1+ (NORMAL); Ovalocytes 1+ (NORMAL); Platelet Estimate Adequate (Adequate); Poikilocytosis 2+ (NORMAL)
[2019-07-08] MEDS: DORNASE ALFA INH SOLN 1 MG/ML 2.5 ML AMP 2.5 MG INHALATION (08:25)
[2019-07-08] MEDS: predniSONE 20 MG TABLET 60 MG PO (08:54)
[2019-07-08] MEDS: FERROUS SULFATE 324 MG TABLET PO ×2 (08:54→17:23)
[2019-07-08] MEDS: POTASSIUM CHLORIDE 20 MEQ TABLET.ER 40 MEQ PO ×2 (08:54→17:23)
[2019-07-08] MEDS: MAGNESIUM OXIDE 200 MG TABLET PO (08:55)
[2019-07-08] MEDS: FUROSEMIDE INJ 40 MG/4 ML VIAL IV PUSH (08:55)
[2019-07-08] MEDS: FOLIC ACID 1 MG TABLET PO (08:55)
[2019-07-08] MEDS: ATORVASTATIN 40 MG TABLET 80 MG PO (08:55)
[2019-07-08] MEDS: THIAMINE HCL 100 MG TABLET PO (08:56)
[2019-07-08] MEDS: NICOTINE (*PBKC) 21 MG PATCH 1 PATCH TRANSDERM (08:56)
[2019-07-08] MEDS: SILVERGEL (ELTA) 45 ML 1 APPLIC TOPICAL (08:56)
[2019-07-08] MEDS: PANTOPRAZOLE 40 MG TABLET PO (08:56)
[2019-07-08] MEDS: metOLazone 2.5 MG TABLET PO (08:56)
[2019-07-08] MEDS: METOPROLOL TARTRATE 50 MG TAB PO (08:57)
--- NOTE | 2019-07-08 10:00 | PC.NURSE ---
Encouraged patient to be out of bed more today. Patient states he will sit on the side of the bed.
--- NOTE | 2019-07-08 10:33 | PM.IMPN ---
Progress Note: A&P Assessment and Plan (1) Severe anemia: Code(s): D64.9 - Anemia, unspecified Status: Acute Assessment and Plan: Discharged - see discharge summary. Hgb on arrival 6.3, has received a total of 3 units packed RBCs over this admission. H&H low but stable today. He reports black stools for the last [address] Snell consulted - appreciate input. EGD/colonoscopy revealed gastritis, colon polyp, and internal hemorrhoids. Will monitor H&H and transfuse as needed to keep Hgb > 7. Home Xarelto is held. (2) Acute on chronic combined systolic and diastolic CHF (congestive heart failure): Code(s): I50.43 - Acute on chronic combined systolic (congestive) and diastolic (congestive) heart failure Status: Acute Assessment and Plan: Patient follows with Dr Hurtado. Echocardiogram demonstrated severe RV enlargement. Dr Rob consulted - appreciate further recommendations regarding diuresis. He remains on metolazone and BID IV Lasix today. Monitoring K and Mg, on scheduled oral replacement of both. (3) Anasarca: Code(s): R60.1 - Generalized edema Status: Acute Assessment and Plan: [place] to be secondary to above. Improved. Bilirubin on arrival 0.7, ALT and AST within normal limits, alk-phos is elevated. Abdominal ultrasound shows hepatic steatosis not likely to be contributing. (4) COPD (chronic obstructive pulmonary disease): Qualifiers: COPD type: unspecified COPD Qualified Code(s): J44.9 - Chronic obstructive pulmonary disease, unspecified Code(s): J44.9 - Chronic obstructive pulmonary disease, unspecified Status: Acute Assessment and Plan: Continue home symbicort. He reports a baseline cough, improved today. No fevers or leukocytosis. Continue scheduled nebulized bronchodilators, Pulmozyme, Mucinex and Cornet, oral prednisone. Dr. Rob has consulted Dr. Weiss. He tells me he would not wear O2 at home if it would be required. (5) Tobacco abuse: Code(s): Z72.0 - Tobacco use Status: Acute Assessment and Plan: Smoking cessation discussed. Nicotine patch ordered. He is not interested in quitting. (6) Obstructive sleep apnea: Code(s): G47.33 - Obstructive sleep apnea (adult) (pediatric) Status: Acute Assessment and Plan: Discussed the cardiopulmonary risks of untreated sleep apnea which is likely contributing to his heart failure. Apnea link 03/30/19 during one of his previous admissions is positive and it is noted that he declined further evaluation with sleep study. Recommend sleep study outpatient. Discussed this with patient and he is not interested. He attempted wearing CPAP for about 1 hour and did not tolerate it. (7) Paroxysmal atrial fibrillation: Code(s): I48.0 - Paroxysmal atrial fibrillation Status: Chronic Assessment and Plan: Cardiology following. Continue beta-blockade with metoprolol. Home Xarelto on hold due to GI bleed. (8) Venous stasis ulcers of both lower extremities: Code(s): I83.019 - Varicose veins of right lower extremity with ulcer of unspecified site; I83.029 - Varicose veins of left lower extremity with ulcer of unspecified site; L97.919 - Non-pressure chronic ulcer of unspecified part of right lower leg with unspecified severity; L97.929 - Non-pressure chronic ulcer of unspecified part of left lower leg with unspecified severity Status: Acute Assessment and Plan: Seen by wound nurse, cover with Mepilex dressings. Lower legs erythema much improved compared to days prior with diuresis. (9) CKD (chronic kidney disease): Qualifiers: Chronic kidney disease stage: unspecified stage
--- NOTE | 2019-07-08 15:23 | PM.PNCARD ---
Progress Note: A&P Assessment and Plan (1) Right-sided heart failure: Qualifiers: Heart failure chronicity: acute on chronic Qualified Code(s): I50.813 - Acute on chronic right heart failure Code(s): I50.810 - Right heart failure, unspecified Status: Acute Assessment and Plan: Acute on chronic with very little diuresis however symptoms are improved. Would discharge with Bumex 2 mg b.i.d. along with metolazone 2.5 mg daily. BMP in 1 week with the results to go to Dr. Hurtado's office. I encouraged him to consider a formal sleep study however he states he will not be able to use CPAP. Will discuss again at office visit (2) Severe anemia: Code(s): D64.9 - Anemia, unspecified Status: Acute Assessment and Plan: He remains in normal sinus rhythm. Do not restart Xarelto at discharge per Dr Snell is recommendation. (3) Paroxysmal atrial fibrillation: Code(s): I48.0 - Paroxysmal atrial fibrillation Status: Chronic Assessment and Plan: In sinus rhythm. Continue metoprolol to 50 mg q.12 hours. (4) Coronary artery disease: Qualifiers: Associated angina: without angina Coronary Disease-Associated Artery/Lesion type: [place] artery [place] vs. transplanted heart: [place] heart Qualified Code(s): I25.10 - Atherosclerotic heart disease of [place] coronary artery without angina pectoris Code(s): I25.10 - Atherosclerotic heart disease of [place] coronary artery without angina pectoris Status: Acute Assessment and Plan: Aspirin 81 mg daily. Started discharge. Continue atorvastatin. CBC in 1 week. (5) Tobacco abuse: Code(s): Z72.0 - Tobacco use Status: Acute Assessment and Plan: Counseling performed (6) Alcohol abuse: Code(s): F10.10 - Alcohol abuse, uncomplicated Status: Acute Assessment and Plan: counseling performed (7) Obstructive sleep apnea: Code(s): G47.33 - Obstructive sleep apnea (adult) (pediatric) Status: Acute Assessment and Plan: Treatment of his sleep apnea is imperative. Reluctance to do sleep study as above. Additional Plan OK to discharge from cardiac standpoint See discharge instructions for follow-up Plan discussed with Dr. Lawler [id number] 07/08/2019 Time Spent With Patient Time with patient: 15 - 25 minutes Subjective Date/time seen: 07/08/19 15:23 Interval history: Follow-up for: Severe pulmonary hypertension, right-sided heart failure Date of service: 07/08/2019 Subjective: Feeling very well. Denied any chest pain, pressure, tightness or squeezing. Occasional shortness of breath with exertional activities. States just slows down and takes in deep breaths. No lightheadedness. Has been moving about in the room. Wants to go home. Review of Systems Constitutional: Constitutional: Denies chills, Denies fatigue, Denies headache(s) and Denies weakness Eyes: Eyes: Denies blurry vision ENT: Reports Normal hearing present, Denies headache(s) and Denies lip swelling Cardiovascular: Cardiovascular: Denies chest pain, Reports leg edema, Denies lightheadedness and Reports dyspnea on exertion Respiratory: Respiratory: Denies cough and Reports dyspnea on exertion Comments: Tried to use the CPAP for 1 hour but was able to fall sleep due to the noise and action of the machine with respiration and expiration. Gastrointestinal: Gastrointestinal: Denies abdominal pain, Denies bloating, Denies nausea and Denies vomiting Genitourinary: Genitourinary: Reports scrotal swelling (Resolved) Musculoskeletal: Musculoskeletal: Denies back pain Integumentary/Breasts: Skin/Breast: Denies dry skin Neurologic: Reports Normal hearing present, Denies headache(s) and Denie
--- NOTE | 2019-07-08 19:34 | PM.DS ---
DS: Diagnosis Admitting Diagnosis Admitting Diagnosis: Anemia, unspecified Discharge Diagnosis (1) Severe anemia: Code(s): D64.9 - Anemia, unspecified Status: Acute Assessment and Plan: Date of Service 07/08/19 Mr. Krishnan is a pleasant 63yo M with history of chronic systolic and diastolic heart failure, COPD, ongoing tobacco abuse, paroxysmal atrial fibrillation among other comorbidities who presented to the emergency department for evaluation of swelling and shortness of breath. He noted lower extremity swelling had been worsening over the last few weeks. Bilateral legs up to thighs, scrotum, and abdomen were edematous. He follows with Dr Hurtado who had been increasing his Bumex outpatient due to this swelling. Mr Krishnan was seen by Dr Rob here who assisted in diuresis recommendations. Through his stay, he was diuresed with IV Lasix BID and metolazone was added. He diuresed well and his swelling was much improved prior to discharge. He was discharged with 2mg Bumex BID and 2.5 mg metolazone daily per cardiology recommendations and will follow up with [facility] later this month. Mr. Krishnan's hemoglobin was 6.3 on arrival. He noted he had been having dark black stools over the last 2 to 3 weeks prior to arrival. He received a total of 3 units packed RBC transfusion over the course of this admission. Hgb remained low but stable at time of discharge, and he was instructed to repeat lab work outpatient to monitor H&H. GI was consulted and he was evaluated by Dr Snell. He underwent EGD and colonoscopy by Dr Snell 07/05 which revealed gastritis, a colon polyp which was removed, and internal hemorrhoids. It is felt the gastritis may have been contributing to occult blood loss and anemia. Recommend routine colonoscopy in 3 to 5 years. Home xarelto (takes for a fib) held due to GI bleeding; continue to hold until follow up with Cardiology. During his last admission, he had an apnea link that was positive. It is felt he likely suffers from sleep apnea contributing to his heart failure. Detailed discussions were held with the patient about the cardiopulmonary risks of untreated sleep apnea. Further education was provided regarding smoking cessation, cutting back on alcohol use. He politely but adamantly declines further referrals to sleep medicine. He was requiring 1L supplemental O2 at time of discharge and declined home O2 evaluation. He would not want to have an oxygen tank at home because he will continue to smoke. He was noted to have wheezing and coughing on admission, treated with nebulized bronchodilators and oral prednisone. Mr Eulogio's swelling was much improved and his hemoglobin was low but stable at discharge. He was hemodynamically stable for discharge 07/08/19 with instructions to follow up with [facility] and his PCP. Hgb on arrival 6.3, has received a total of 3 units packed RBCs over this admission. H&H low but stable today. He reports black stools for the last [address] Snell consulted - appreciate input. EGD/colonoscopy revealed gastritis, colon polyp, and internal hemorrhoids. Will monitor H&H and transfuse as needed to keep Hgb > 7. Home Xarelto is held. (2) Acute on chronic combined systolic and diastolic CHF (congestive heart failure): Code(s): I50.43 - Acute on chronic combined systolic (congestive) and diastolic (congestive) heart failure Status: Acute Assessment and Plan: Patient follows with Dr Hurtado. Echocardiogram demonstrated severe RV enlargement. Follow [facility]. (3) Anasarca: Code(s): R60.1 - Generalized edema Status: Acute Assessment and Plan: [place] to be secondary to above. Improved. Bilirubin on arrival 0.7, ALT and AST within normal limits, alk-phos is elevated. Abdominal ultrasound shows hepatic steatosis not likely to be contributing.
== END 2019-07-08 17:45 | disposition home or self-care (01) | DRG 377 ==
LOC: ANHED 18:08 → ANH2MED 19:32
PROVIDERS: Family Medicine; Internal Medicine; Internal Medicine Cardiovascular Disease; Internal Medicine Gastroenterology; Physician Assistant; Admitting Provider Internal Medicine; Emergency Provider Emergency Medicine; PCP Internal Medicine; Visit Provider Family Medicine
PROC: 0DJ08ZZ Inspection of Upper Intestinal Tract, Via Natural or Artificial Opening Endoscopic (ICD-10-PCS; CPT 43235; principal; 2019-07-05 11:00)
DX: K29.01 Acute gastritis with bleeding (principal); I50.43 Acute on chronic combined systolic (congestive) and diastolic (congestive) heart failure; D62 Acute posthemorrhagic anemia; I13.0 Hypertensive heart and chronic kidney disease with heart failure and stage 1 through stage 4 chronic kidney disease, or unspecified chronic kidney disease; L97.919 Non-pressure chronic ulcer of unspecified part of right lower leg with unspecified severity; Z68.41 Body mass index [BMI] 40.0-44.9, adult; K64.8 Other hemorrhoids; D50.0 Iron deficiency anemia secondary to blood loss (chronic); I83.019 Varicose veins of right lower extremity with ulcer of unspecified site; I83.029 Varicose veins of left lower extremity with ulcer of unspecified site; N18.3 Chronic kidney disease, stage 3 (moderate); E11.22 Type 2 diabetes mellitus with diabetic chronic kidney disease; E11.51 Type 2 diabetes mellitus with diabetic peripheral angiopathy without gangrene; I73.9 Peripheral vascular disease, unspecified; J44.9 Chronic obstructive pulmonary disease, unspecified; G47.33 Obstructive sleep apnea (adult) (pediatric); K21.9 Gastro-esophageal reflux disease without esophagitis; M10.9 Gout, unspecified; E78.5 Hyperlipidemia, unspecified; I25.10 Atherosclerotic heart disease of native coronary artery without angina pectoris; I27.20 Pulmonary hypertension, unspecified; D12.2 Benign neoplasm of ascending colon; D12.5 Benign neoplasm of sigmoid colon; D12.4 Benign neoplasm of descending colon; D13.1 Benign neoplasm of stomach; R09.02 Hypoxemia; E53.8 Deficiency of other specified B group vitamins; I48.0 Paroxysmal atrial fibrillation; M19.90 Unspecified osteoarthritis, unspecified site; E66.01 Morbid (severe) obesity due to excess calories; F17.210 Nicotine dependence, cigarettes, uncomplicated; F10.10 Alcohol abuse, uncomplicated; Z79.01 Long term (current) use of anticoagulants; Z95.5 Presence of coronary angioplasty implant and graft; I25.2 Old myocardial infarction
CPT/HCPCS: 36415; 36430; 36600; 71046; 76700; 76705; 80048; 80053; 81001; 82247; 82248; 82274; 82375; 82607; 82728; 82746; 82805; 83050; 83540; 83550; 83735; 83880; 84100; 84484; 85014; 85018; 85025; 85027; 85610; 85730; 86140; 86850; 86900; 86901; 86923; 87804; 88305; 88342; 93005; 93306; 93971; 94640; 94660; 94667; 94668; 96374; 96375; 96376; 99285; A9270; C9113; G0378; J1940; J2704; J7120; J7512; P9016

== ENCOUNTER 2020-08-26 19:30 | Inpatient (IN) | payer MEDICARE, SELFPAY ==
[2020-08-26] VITALS (11 sets, daily range): BP systolic 104–165; BP diastolic 56–86; PULSE 85–96; RESP 16–30; TEMP 36.6–36.9; O2SAT 90–100; BMI 41.6
--- NOTE | ~2020-08-26 | US_ITS ---
US renal BI 08/28/2020 15:01 Procedure: Realtime transabdominal ultrasound of the kidneys and bladder. Indication: Increased creatinine. Renal failure. Comparison: 07/06/2019 Findings: Renal echotexture is normal bilaterally without hydronephrosis, contour deforming mass or r enal calculus. The right kidney measures 9.6 cm and left kidney measures 10.3 cm. Bladder within nor mal limits. There is ascites. Impression: 1: Unremarkable renal ultrasound. No stones, masses or hydronephrosis. 2: Ascites. Reviewed, dictated and finalized at location A. Impression: 1: Unremarkable renal ultrasound. No stones, masses or hydronephrosis. 2: Ascites.
--- NOTE | ~2020-08-26 | XR_ITS ---
XR chest 2V 08/26/2020 20:12 Indication: Leg edema. History of COPD. Heart attack. Procedure: AP and lateral views of the chest Comparison: Comparison to multiple prior studies sequentially, with oldest reviewed study dated 03/09. Findings: There is unchanged chronic right basilar atelectasis/scarring. There is chronic small right pleural effusion versus pleural thickening. Stable enlarged heart. No acute focal pneumonia, edema o r effusion. Impression: 1: No acute cardiopulmonary disease. 2: Chronic right basilar atelectasis/scarring. 3: Stable chronic small right pleural effusion versus pleural thickening. Reviewed, dictated and finalized at location A. Impression: 1: No acute cardiopulmonary disease. 2: Chronic right basilar atelectasis/scarring. 3: Stable chronic small right pleural effusion versus pleural thickening.
--- NOTE | 2020-08-26 19:57 | ECG_ITS ---
Measurements Intervals [place] Rate: 91 P: [place]: 0 QRS: 17 QRSD: 103 T: -88 QT: 318 QTc: 391 Interpretive Statements SINUS OR ECTOPIC ATRIAL RHYTHM ATRIAL PREMATURE COMPLEXES LOW QRS VOLTAGE IN PRECORDIAL LEADS INCOMPLETE RIGHT BUNDLE BRANCH BLOCK ST-T WAVE ABNORMALITY IN ANTEROLAT/INF LEADS- CONSIDER ISCHEMIA BASELINE ARTIFACT- I, II, III, AVR, AVL, AVF, V2-V6 ABNORMAL ECG Electronically Signed On 08-27-2020 7:11:07 CDT by Epifanio Morton D.O.
--- NOTE | 2020-08-26 20:00 | PC.NURSE ---
Pt. to XR
--- NOTE | 2020-08-26 20:17 | ED.GENADULT ---
HPI - General Adult General Chief complaint: Extremity Injury, Lower Stated complaint: weakness in legs Time Seen by Provider: 08/26/20 19:38 Source: patient Mode of arrival: EMS Limitations: no limitations History of Present Illness HPI narrative: This is a 60 year old male with history of CHF, COPD, atrial fibrillation who presents for evaluation of bilateral leg swelling and pain. He states he has had increased swelling to bilateral legs up to his abdomen over the past 3 weeks. He reports a 30 pound weight gain. He takes Bumex and he states he does not think he is urinating much over the past 3 days. He finally came to ER because he is having took much pain in his legs with walking. He denies fever, chills, nausea, vomiting or diarrhea. He states he normally gets antibiotics for these symptoms. He has chronic sob but he states it is now worse with his swelling. HE denies orthopnea or chest pain. His commercial coordinator is Dr. Hurtado. Related Data Home Medications Medication Instructions Recorded Confirmed bumetanide 2 mg PO BID 05/01/19 08/26/20 Symbicort See Rx Instructions .ROUTE .COMPLEX 08/26/20 08/27/20 albuterol sulfate 2.5 mg INHALATION BID PRN 08/26/20 08/26/20 albuterol sulfate See Rx Instructions INHALATION Q4H 08/26/20 08/26/20 PRN aspirin 81 mg PO DAILY 08/26/20 08/26/20 atorvastatin 80 mg PO DAILY 08/26/20 08/26/20 Allergies Allergy/AdvReac Type Severity Reaction Status Date / Time No Known Allergies Allergy Verified 05/19/20 11:38 Review of Systems Review of Systems: All systems reviewed & are unremarkable except as noted in HPI and below Constitutional: Constitutional: Denies chills, Reports fatigue and Denies fever(s) Cardiovascular: Cardiovascular: Denies chest pain Respiratory: Respiratory: Denies cough and Reports dyspnea (chronic) Gastrointestinal: Gastrointestinal: Reports abdominal pain, Denies diarrhea, Denies nausea and Denies vomiting Musculoskeletal: Comments: leg swelling PMFSH Past Medical History Medical History Aortic stenosis Noted on echo March 2019 was mild with a mean gradient of 7 a valve area of 1.6 Arthritis B12 deficiency Diagnosed December 2018 with adequate supplementation B12 level is now elevated Benign essential hypertension Body mass index (BMI) 40.0-44.9, adult CAD (coronary artery disease) Cellulitis Recurrent lower extremity cellulitis Chronic insomnia CKD (chronic kidney disease) Chronic kidney disease stage 3 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 Right ventricular chamber dimension is severely enlarged. 2. Right ventricular systolic function is moderate to severely reduced. 3. Prominent moderator band. 4. Flattening of the septum in diastole and systole consistent with right ventricular volume and pressure overload. 5. Right atrial chamber dimension is markedly enlarged. 6. There is mild aortic valve stenosis with a peak velocity of 186 cm/s, mean gradient of 7 mmHg, and aortic valve area of 1.6 cm2. 7. There is mild aortic valve calcification. 8. There is moderate tricuspid valve regurgitation. 9. Mild thickening with suggested focal calcification of tricuspid valve which cannot be further characterized given limited visualization. 10. Moderate pulmonary hypertension, estimated pulmonary arterial systolic pressure is 56 mmHg. 11. Dilated inferior vena cava with <50% collapse upon inspiration consistent with elevated right atrial pressure, 15 mmHg. 12. Left ventricular systolic function is normal, estimated at 55-60%. 13. There is mildly increased left ventricular wall thickness. 14. The left ventricular diastolic function is grade II diastolic dysfunction. COPD (chronic obstructive pulmonary disease) Coronary artery disease Diabetes GERD (gastroesophageal reflux disease) Gout Heart attack 2013 with cardiac a
[2020-08-26 20:22] LABS: Basophils Percent Auto 0.4 % (0.2-1.2); Eosinophils Percent Auto 0.4 % (0-4.4); Hematocrit 30.1 % (42.0-52.0); Hemoglobin 9.2 g/dL (14.0-18.0); Immature Granulocyte Absolute 0.07 K/mm3 (0.00-0.031); Immature Granulocyte Percent A 0.8 % (0-0.5); Lymphocytes Absolute Auto 0.79 K/mm3 (0.9-3.2); Lymphocytes Percent Auto 9.5 % (18.3-44.2); Mean Corpuscular HGB Conc 30.6 g/dl (32-36); Mean Corpuscular Hemoglobin 27.6 pg (26-34); Mean Corpuscular Volume 90.4 fl (80-100); Mean Platelet Volume 9.8 fl (7.4-10.4); Monocytes Absolute Auto 0.9 K/mm3 (0.1-0.6); Monocytes Percent Auto 10.4 % (2.6-8.5); Neutrophils Absolute Auto 6.5 K/mm3 (1.3-6.7); Neutrophils Percent Auto 78.5 % (45.5-73.1); Platelet Count Result 258 k/mm3 (150-375); Red Blood Count 3.33 M/mm3 (4.6-6.20); Red Cell Distribution Width 18.1 % (11.5-14.5); White Blood Count 8.3 K/mm3 (4.5-10.0)
[2020-08-26 20:32] LABS: Prothrombin Time 14.1 Seconds (11.1-14.7)
[2020-08-26 20:33] LABS: Partial Thromboplastin Time 29.1 SECONDS (22.3-36.8)
[2020-08-26 20:35] LABS: Alanine Aminotransferase 20 U/L (4-50); Albumin Level 3.9 g/dL (3.5-5.1); Alkaline Phosphatase 217 U/L (38-126); Anion Gap 9 mmol/L (8-16); Aspartate Amino Transferase 35 U/L (17-59); Bilirubin,Total 0.7 mg/dL (0.2-1.3); Blood Urea Nitrogen 37 mg/dL (9-20); CRP 2.8 mg/dL (<1.0); Calcium 8.8 mg/dL (8.4-10.2); Carbon Dioxide 30 mmol/L (22-30); Chloride 96 mmol/L (98-107); Creatine Kinase 43 U/L (55-170); Estimated CRCL calculation 48 ml/min; Estimated Glomerular Filt Rate 32; Glucose 106 mg/dL (75-110); Magnesium 1.9 mg/dL (1.6-2.3); Potassium 4.1 mmol/L (3.4-5.0); Sodium 135 mmol/L (137-145)
[2020-08-26 20:41] LABS: NT Pro B Type Natriuretic Pept 4100 PG/ML (5-100)
[2020-08-26 21:17] LABS: Add Urine Microscopic? NO; Appearance Urine Clear (Clear); Bilirubin Urine Negative (Negative); Blood Urine Negative (Negative); Color Urine Yellow (Yellow); Glucose Urine UA Negative (Negative); Ketones Urine Negative (Negative); Leukocyte Esterase Ur Negative LEU/UL (Negative); Nitrate Urine Negative (Negative); Protein Urine Negative (Negative); Specific Grav Ur 1.006 (1.001-1.035); Urobilinogen Urine Negative mg/dL (<2.0)
[2020-08-26] MEDS: FUROSEMIDE INJ 40 MG/4 ML VIAL IV PUSH (21:18)
[2020-08-27] VITALS (17 sets, daily range): BP systolic 104–120; BP diastolic 57–72; PULSE 70–106; RESP 16–22; TEMP 36.6–37.1; O2SAT 90–94
--- NOTE | 2020-08-27 00:37 | ECHO_ITS ---
Patient Info Name: Solo Krishnan Age: 64 years : 1955 Gender: Male Ht: 72 in Wt: 307 lbs BSA: 2.72 m2 BP: 108 / 57 mmHg Heart Rhythm: Sinus Rhythm Exam Date: 08/27/2020 9:41 AM Exam Location: [facility] Pulmonary Patient Status: Outpatient Admit Date: 08/26/2020 Staff Ordering Physician: Guillermo Vasquez MD Cloth Calender: Eyal Hankins RDCS, RT Attending Provider: Ki Javier PA-C Referring Physician: Christina JONES; Exam Type: CA echo doppler color flow Study Info Indications I50.9 - Heart failure, unspecified Complete two-dimensional, color flow and Doppler transthoracic echocardiogram is performed. Strain analysis performed. Summary 1. Complete two-dimensional, color flow and Doppler transthoracic echocardiogram is performed. 2. Left ventricular chamber dimension is normal. 3. Left ventricular systolic function is normal, estimated at 60-65%. 4. There is mildly increased left ventricular wall thickness. 5. The left ventricular diastolic function is normal. 6. Global longitudinal strain is borderline at -17 %. 7. Strain analysis performed. 8. There is severe aortic valve calcification. 9. There is moderate aortic valve stenosis with a peak velocity of 215 cm/s, mean gradient of 10 mmHg, and aortic valve area of 1.3 cm2. 10. There is mild mitral valve regurgitation. 11. There is severe tricuspid valve regurgitation. 12. Severe pulmonary hypertension, estimated pulmonary arterial systolic pressure is 86 mmHg. 13. Right ventricular chamber dimension is severely enlarged. 14. Right ventricular systolic function is reduced. 15. Left atrial chamber dimension is mildly enlarged. 16. Right atrial chamber dimension is severely enlarged. Left Ventricle Left ventricular chamber dimension is normal. Left ventricular systolic function is normal, estimated at 60-65%. There is mildly increased left ventricular wall thickness. The left ventricular diastolic function is normal. Global longitudinal strain is borderline at -17 %. Right Ventricle Right ventricular chamber dimension is severely enlarged. Right ventricular systolic function is reduced. Left Atria Left atrial chamber dimension is mildly enlarged. Right Atria Right atrial chamber dimension is severely enlarged. Atrial Septum Intact interatrial septum visualized by color flow imaging. Aortic Valve The aortic valve is trileaflet. There is moderate aortic valve stenosis with a peak velocity of 215 cm/s, mean gradient of 10 mmHg, and aortic valve area of 1.3 cm2. There is trace aortic valve regurgitation. There is severe aortic valve calcification. Pulmonic Valve The pulmonic valve is normal. There is no pulmonic valve stenosis. There is trace pulmonic regurgitation. Mitral Valve The mitral valve has normal leaflets. There is no mitral valve stenosis. There is mild mitral valve regurgitation. Tricuspid Valve The tricuspid valve leaflets are normal. There is no significant tricuspid valve stenosis. There is severe tricuspid valve regurgitation. Severe pulmonary hypertension, estimated pulmonary arterial systolic pressure is 86 mmHg. Pericardium/Pleural The pericardium appears normal. There is no pericardial effusion. Inferior Vena Cava Dilated inferior vena cava with <50% collapse upon inspiration consistent with elevated right atrial pressure, 15 mmHg. Aorta The aortic root size at the sinus of Valsalva is normal. The prox ascending aorta size is normal. Zoraida
--- NOTE | 2020-08-27 00:48 | PM.IMHP ---
H&P: HPI History of Present Illness Date/Time: 08/27/20 00:48 Chief Complaint: LE swelling and pain+ Narrative: This is a pleasant 60 year old morbidly obese Diabetic male with known history of combined systolic and diastolic CHF, COPD, CAD, and paroxysmal atrial fibrillation previously on Xarelto among many other comorbidities who presented to the hospital for evaluation of worsening bilateral lower extremity swelling over the past month with increased lower extremity discomfort. The patient also reports a 30 lb weight gain over the past 3 weeks. The patient is known to smoke about 1 pack of cigarettes daily and drinks 4-5 beers and several shots of hard liquor daily. He also admits to eating mostly just TV dinners and adding extra salt to his food. The patient complains that he believes that his home Bumex is not doing anything for him as he has noticed decreased urination over the past couple a days. The patient denies any fevers, chills, nausea, vomiting, abdominal pain, dysuria, hematuria, diarrhea, rectal bleeding, or chest pain. The patient has a chronic cough which she states not changed recently. He was evaluated emergency room this evening and given a dose of IV Lasix. we been asked to admit the patient to the hospital to help diurese him. Review of Systems Review of Systems: All systems reviewed & are unremarkable except as noted in HPI and below PMFSH Past Medical History Medical History Aortic stenosis Noted on echo March 2019 was mild with a mean gradient of 7 a valve area of 1.6 Arthritis B12 deficiency Diagnosed December 2018 with adequate supplementation B12 level is now elevated Benign essential hypertension Body mass index (BMI) 40.0-44.9, adult CAD (coronary artery disease) Cellulitis Recurrent lower extremity cellulitis Chronic insomnia CKD (chronic kidney disease) Chronic kidney disease stage 3 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 Right ventricular chamber dimension is severely enlarged. 2. Right ventricular systolic function is moderate to severely reduced. 3. Prominent moderator band. 4. Flattening of the septum in diastole and systole consistent with right ventricular volume and pressure overload. 5. Right atrial chamber dimension is markedly enlarged. 6. There is mild aortic valve stenosis with a peak velocity of 186 cm/s, mean gradient of 7 mmHg, and aortic valve area of 1.6 cm2. 7. There is mild aortic valve calcification. 8. There is moderate tricuspid valve regurgitation. 9. Mild thickening with suggested focal calcification of tricuspid valve which cannot be further characterized given limited visualization. 10. Moderate pulmonary hypertension, estimated pulmonary arterial systolic pressure is 56 mmHg. 11. Dilated inferior vena cava with <50% collapse upon inspiration consistent with elevated right atrial pressure, 15 mmHg. 12. Left ventricular systolic function is normal, estimated at 55-60%. 13. There is mildly increased left ventricular wall thickness. 14. The left ventricular diastolic function is grade II diastolic dysfunction. COPD (chronic obstructive pulmonary disease) Coronary artery disease Diabetes GERD (gastroesophageal reflux disease) Gout Heart attack 2013 with cardiac arrest requiring defibrillation Hypercholesteremia Insomnia Kidney stones Many years ago the patient passed on his own Leg fracture, right Moderate pulmonary arterial systolic hypertension Obstructive sleep apnea Refuses CPAP Other and unspecified hyperlipidemia Paroxysmal atrial fibrillation Diagnosed March 2019 Paroxysmal atrial fibrillation Pulmonary hypertension Moderate per echo 03/2019 PVD (peripheral vascular disease) Right-sided heart failure Umbilical hernia Not repaired Surgical History Surgical History H/O
[2020-08-27] MEDS: ALBUTEROL SULFATE NEB 2.5 MG/0.5 ML INH 5 MG INHALATION ×4 (02:08→23:54)
[2020-08-27] MEDS: NICOTINE (*PBKC) 21 MG PATCH 1 PATCH TRANSDERM ×2 (02:30→20:20)
[2020-08-27 06:10] LABS: Basophils Percent Auto 0.3 % (0.2-1.2); Eosinophils Percent Auto 0.2 % (0-4.4); Hematocrit 27.3 % (42.0-52.0); Hemoglobin 8.4 g/dL (14.0-18.0); Immature Granulocyte Absolute 0.04 K/mm3 (0.00-0.031); Immature Granulocyte Percent A 0.4 % (0-0.5); Lymphocytes Absolute Auto 0.62 K/mm3 (0.9-3.2); Lymphocytes Percent Auto 6.8 % (18.3-44.2); Mean Corpuscular HGB Conc 30.8 g/dl (32-36); Mean Corpuscular Hemoglobin 27.4 pg (26-34); Mean Corpuscular Volume 88.9 fl (80-100); Mean Platelet Volume 9.9 fl (7.4-10.4); Monocytes Absolute Auto 0.9 K/mm3 (0.1-0.6); Monocytes Percent Auto 9.9 % (2.6-8.5); Neutrophils Absolute Auto 7.5 K/mm3 (1.3-6.7); Neutrophils Percent Auto 82.4 % (45.5-73.1); Platelet Count Result 242 k/mm3 (150-375); Red Blood Count 3.07 M/mm3 (4.6-6.20); White Blood Count 9.1 K/mm3 (4.5-10.0)
[2020-08-27 06:25] LABS: Glucose Point of Care 105 (65-105)
--- NOTE | 2020-08-27 06:34 | ADMGEN ---
This patient, Solo Krishnan I, was admitted to 3 [facility] Surg Room 324-01. Patient/family oriented to hospital policies and general routines including ID bracelet, bed and alarms, visiting hours, pain management, procedures, bathroom and other care routines, personal items, smoking policy, room service/diet, and visiting hours. Information on how to activate the Rapid Response Team has been discussed. Patient/Family are encouraged to report perceived risks to care and to ask questions if they do not understand what they are told or what they should do. Patient arrived at 2320. He was alert, oriented, pleasant, and cooperative. He had moderate-severe wheezing in all lung priest and a very wet sounding cough. He denied pain when sitting though he stated that his feet hurt when he walked. He walked short distances with a cane, complaining of SOB with exertion. He was found to have a very pronounced umbilical hernia with severe abd and leg swelling. His abd and legs were red, firm, and cool. He had one weeping wound on the L side of his L calf that was covered with non-adherent gauze. We discussed the importance of reporting symptoms, call light use, and the importance of fluid balance in regards to diuretics and fluid restrictions.
[2020-08-27 06:55] LABS: Alanine Aminotransferase 19 U/L (4-50); Albumin Level 3.6 g/dL (3.5-5.1); Alkaline Phosphatase 191 U/L (38-126); Anion Gap 7 mmol/L (8-16); Aspartate Amino Transferase 30 U/L (17-59); Bilirubin,Total 0.8 mg/dL (0.2-1.3); Blood Urea Nitrogen 37 mg/dL (9-20); Calcium 8.4 mg/dL (8.4-10.2); Carbon Dioxide 29 mmol/L (22-30); Chloride 100 mmol/L (98-107); Estimated CRCL calculation 59 ml/min; Estimated Glomerular Filt Rate 41; Glucose 97 mg/dL (75-110); Potassium 3.9 mmol/L (3.4-5.0); Sodium 136 mmol/L (137-145)
[2020-08-27 08:06] LABS: Glucose Point of Care 84 (65-105)
[2020-08-27] MEDS: ATORVASTATIN 40 MG TABLET 80 MG PO (09:05)
[2020-08-27] MEDS: ASPIRIN 81 MG ENTERIC TABLET PO (09:05)
[2020-08-27] MEDS: METOPROLOL TARTRATE 50 MG TAB PO ×2 (09:05→20:21)
[2020-08-27] MEDS: THIAMINE HCL 200 MG/2 ML VIAL 100 MG IV PUSH (09:06)
[2020-08-27] MEDS: BUMETANIDE INJ 1 MG/4 ML VIAL IV PUSH ×2 (09:06→16:27)
[2020-08-27] MEDS: ENOXAPARIN 40 MG/0.4 ML SYRINGE SUB-Q (09:09)
[2020-08-27 12:21] LABS: Glucose Point of Care 89 (65-105)
--- NOTE | 2020-08-27 12:59 | PM.IMPN ---
Progress Note: A&P Assessment and Plan (1) Acute exacerbation of CHF (congestive heart failure): Qualifiers: Heart failure type: unspecified Qualified Code(s): I50.9 - Heart failure, unspecified Code(s): I50.9 - Heart failure, unspecified Status: Acute Assessment and Plan: Patient still reporting extensive LE and abdominal wall edema with little urine output today. No SOB outside of his normal SOB associated with COPD. Reports compliance with home medications, however, noncompliant with strict 2 gram sodium diet; understands importance of following diet 2 gram sodium prudent, fluid restricted diet. Is and Os, daily weights. We will continue IV Bumex BID Will add metolazone 2.5 mg PO daily Echocardiogram pending Consider cardiology consultation pending clinical improvement and echo results (2) COPD (chronic obstructive pulmonary disease): Code(s): J44.9 - Chronic obstructive pulmonary disease, unspecified Status: Chronic Assessment and Plan: No acute issues at the moment Continue bronchodilators. (3) Obstructive sleep apnea: Code(s): G47.33 - Obstructive sleep apnea (adult) (pediatric) Status: Acute Assessment and Plan: I do not believe this has been formally diagnosed with outpatient sleep study, although previous Apnea Link has strongly suggested OLIVE. CPAP trialed during hospitalization last year, although patient only could tolerate 1 hour and refused to wear CPAP after this; politely refused any further work up at that time and again refuses to wear CPAP this hospitalization after lengthy discussion regarding his severe pulmonary HTN found on Echo last hospitalization. Will discuss further tomorrow after echo results; he is agreeable to further discuss this tomorrow (4) Open wound of left lower extremity: Qualifiers: Encounter type: initial encounter Qualified Code(s): S81.802A - Unspecified open wound, left lower leg, initial encounter Code(s): S81.802A - Unspecified open wound, left lower leg, initial encounter Status: Acute Assessment and Plan: Local wound care WC consult Monitor (5) Coronary artery disease: Qualifiers: Coronary Disease-Associated Artery/Lesion type: [place] artery [place] vs. transplanted heart: [place] heart Associated angina: without angina Qualified Code(s): I25.10 - Atherosclerotic heart disease of [place] coronary artery without angina pectoris Code(s): I25.10 - Atherosclerotic heart disease of [place] coronary artery without angina pectoris Status: Chronic Assessment and Plan: No chest pain. Continue beta miryam and ASA. (6) Paroxysmal atrial fibrillation: Code(s): I48.0 - Paroxysmal atrial fibrillation Status: Chronic Assessment and Plan: The patient has not been on anticoagulants for some time due to past GI bleed. Continue beta miryam and ASA therapy. (7) CKD (chronic kidney disease): Qualifiers: Chronic kidney disease stage: unspecified stage Qualified Code(s): N18.9 - Chronic kidney disease, unspecified Code(s): N18.9 - Chronic kidney disease, unspecified Status: Chronic Assessment and Plan: Cr 1.70 today; slightly better from a few months ago, although Cr ~1.30 one year ago. Has a referral to stone finisher but does not know his name; possible Dr. Paz? Monitor renal function with diuresis avoid nephrotoxic agents. Renally dose medications Consider nephrology consultation if renal function worsens (8) Benign essential hypertension: Code(s): I10 - Essential (primary) hypertension Status: Chronic Assessment and Christine
--- NOTE | 2020-08-27 13:55 | PCRCNOTE ---
Window of time for administration has passed. See next scheduled administration.
[2020-08-27] MEDS: metOLazone 2.5 MG TABLET PO (14:24)
[2020-08-27] MEDS: SILVERGEL (ELTA) 45 ML 1 APPLIC TOPICAL (16:27)
[2020-08-27 16:46] LABS: Glucose Point of Care 100 (65-105)
[2020-08-27] MEDS: EUCERIN CREAM 120 GM JAR 1 APPLIC TOPICAL (20:20)
[2020-08-28] VITALS (9 sets, daily range): BP systolic 107–120; BP diastolic 61–76; PULSE 69–89; RESP 18–24; TEMP 36.4–37.2; O2SAT 91–94
--- NOTE | 2020-08-28 04:51 | PCRCNOTE ---
Window of time for administration has passed. See next scheduled administration.
[2020-08-28 05:57] LABS: Basophils Percent Auto 0.4 % (0.2-1.2); Eosinophils Absolute Auto 0.1 K/mm3 (0-0.3); Eosinophils Percent Auto 0.8 % (0-4.4); Hematocrit 28.1 % (42.0-52.0); Hemoglobin 8.6 g/dL (14.0-18.0); Immature Granulocyte Absolute 0.03 K/mm3 (0.00-0.031); Immature Granulocyte Percent A 0.4 % (0-0.5); Lymphocytes Absolute Auto 0.66 K/mm3 (0.9-3.2); Lymphocytes Percent Auto 8.8 % (18.3-44.2); Mean Corpuscular HGB Conc 30.6 g/dl (32-36); Mean Corpuscular Hemoglobin 27.4 pg (26-34); Mean Corpuscular Volume 89.5 fl (80-100); Mean Platelet Volume 9.7 fl (7.4-10.4); Monocytes Absolute Auto 0.8 K/mm3 (0.1-0.6); Monocytes Percent Auto 11.1 % (2.6-8.5); Neutrophils Absolute Auto 5.9 K/mm3 (1.3-6.7); Neutrophils Percent Auto 78.5 % (45.5-73.1); Platelet Count Result 245 k/mm3 (150-375); Red Blood Count 3.14 M/mm3 (4.6-6.20); Red Cell Distribution Width 18.1 % (11.5-14.5); White Blood Count 7.5 K/mm3 (4.5-10.0)
[2020-08-28 06:13] LABS: Anion Gap 6 mmol/L (8-16); Blood Urea Nitrogen 36 mg/dL (9-20); Carbon Dioxide 34 mmol/L (22-30); Chloride 98 mmol/L (98-107); Estimated CRCL calculation 59 ml/min; Estimated Glomerular Filt Rate 41; Glucose 97 mg/dL (75-110); Magnesium 1.9 mg/dL (1.6-2.3); Potassium 3.7 mmol/L (3.4-5.0); Sodium 138 mmol/L (137-145)
[2020-08-28] MEDS: ALBUTEROL SULFATE NEB 2.5 MG/0.5 ML INH 5 MG INHALATION ×3 (08:03→21:54)
[2020-08-28 08:05] LABS: Glucose Point of Care 110 (65-105)
[2020-08-28 08:06] LABS: Glucose Point of Care 90 (65-105)
[2020-08-28] MEDS: METOPROLOL TARTRATE 50 MG TAB PO ×2 (08:11→20:38)
[2020-08-28] MEDS: ATORVASTATIN 40 MG TABLET 80 MG PO (08:11)
[2020-08-28] MEDS: metOLazone 2.5 MG TABLET PO (08:11)
[2020-08-28] MEDS: ASPIRIN 81 MG ENTERIC TABLET PO (08:11)
[2020-08-28] MEDS: BUMETANIDE INJ 1 MG/4 ML VIAL IV PUSH ×2 (08:12→10:24)
[2020-08-28] MEDS: SILVERGEL (ELTA) 45 ML 1 APPLIC TOPICAL (08:12)
[2020-08-28] MEDS: ENOXAPARIN 40 MG/0.4 ML SYRINGE SUB-Q (08:12)
[2020-08-28] MEDS: THIAMINE HCL 200 MG/2 ML VIAL 100 MG IV PUSH (08:12)
[2020-08-28] MEDS: EUCERIN CREAM 120 GM JAR 1 APPLIC TOPICAL (08:12)
--- NOTE | 2020-08-28 08:53 | PM.IMPN ---
Progress Note: A&P Assessment and Plan (1) Acute exacerbation of CHF (congestive heart failure): Qualifiers: Heart failure type: unspecified Qualified Code(s): I50.9 - Heart failure, unspecified Code(s): I50.9 - Heart failure, unspecified Status: Acute Assessment and Plan: Right sided heart failure with similar findings of RV dysfunction, tricuspid regurgitation, and severe pulmonary HTN on Echo this stay compared to last year; worsened noted. Patient still reporting improved edema and increased UOP. No SOB outside of his normal SOB associated with COPD. Reports compliance with home medications, however, noncompliant with strict 2 gram sodium diet; understands importance of following diet 2 gram sodium prudent, fluid restricted diet. Is and Os, daily weights. Continue IV Bumex BID Continue metolazone 2.5 mg PO daily I have consulted Dr. Paz for further input on diuresis in setting of CKD Consider cardiology consultation pending clinical improvement Will discuss case with Dr. Paz and Daughter, Nguyen, later today I have instructed him to elevate his legs (2) COPD (chronic obstructive pulmonary disease): Code(s): J44.9 - Chronic obstructive pulmonary disease, unspecified Status: Chronic Assessment and Plan: No acute issues at the moment Continue bronchodilators. (3) Obstructive sleep apnea: Code(s): G47.33 - Obstructive sleep apnea (adult) (pediatric) Status: Acute Assessment and Plan: I do not believe this has been formally diagnosed with outpatient sleep study, although previous inpatient Apnea Link has strongly suggested OLIVE. CPAP trialed during hospitalization last year, although patient only could tolerate 1 hour and refused to wear CPAP after this; politely refused any further work up at that time and again refuses to wear CPAP this hospitalization after lengthy discussion regarding his severe pulmonary HTN found on Echo last hospitalization. He is still refusing CPAP (4) Open wound of left lower extremity: Qualifiers: Encounter type: initial encounter Qualified Code(s): S81.802A - Unspecified open wound, left lower leg, initial encounter Code(s): S81.802A - Unspecified open wound, left lower leg, initial encounter Status: Acute Assessment and Plan: Local wound care WC consult; appreciate rec Monitor (5) Coronary artery disease: Qualifiers: Coronary Disease-Associated Artery/Lesion type: [place] artery [place] vs. transplanted heart: [place] heart Associated angina: without angina Qualified Code(s): I25.10 - Atherosclerotic heart disease of [place] coronary artery without angina pectoris Code(s): I25.10 - Atherosclerotic heart disease of [place] coronary artery without angina pectoris Status: Chronic Assessment and Plan: No chest pain. Continue beta miryam and ASA. (6) Paroxysmal atrial fibrillation: Code(s): I48.0 - Paroxysmal atrial fibrillation Status: Chronic Assessment and Plan: The patient has not been on anticoagulants for some time due to past GI bleed. Continue beta miryam and ASA therapy. (7) CKD (chronic kidney disease): Qualifiers: Chronic kidney disease stage: unspecified stage Qualified Code(s): N18.9 - Chronic kidney disease, unspecified Code(s): N18.9 - Chronic kidney disease, unspecified Status: Chronic Assessment and Plan: Cr 1.70 today; slightly better from a few months ago, although Cr ~1.30 one year ago. Has a referral to elementary school registrar but does not know his name; possible Dr. Paz? Monitor renal function with diuresis Nephrology Consultation as noted above; greatly appreci
--- NOTE | 2020-08-28 10:35 | PM.CNNEP ---
Assessment and Plan Assessment and plan (1) Chronic kidney disease, stage 3a: Code(s): N18.31 - Chronic kidney disease, stage 3a Status: Acute Assessment and Plan: the patient has mild chronic kidney disease. His GFR actually is most the time below 60 but occasionally is above 60. Most likely this is related to sleep apnea, pulmonary hypertension and chronic pre renal azotemia, with possible component from former systemic hypertension. Vascular disease is probably playing a role as well since he does have coronary artery disease. Will look for other causes including interstitial nephritis, glomerulonephritis, obstruction and infiltrative causes. Will check renal ultrasound, serology, and immunofixation. (2) Acute kidney injury: Code(s): N17.9 - Acute kidney failure, unspecified Status: Acute Assessment and Plan: the patient's creatinine was higher than usual on admission. With diuresis his creatinine has improved. I suspect that the high creatinine was due to renal venous hypertension. His tricuspid regurgitation and pulmonary hypertension have led to high right-sided pressures decreasing the function of the kidneys. With diuresis, venous pressure is have decreased and the kidneys can work better. Generally when this is going on the creatinine improves with diuretics. There will be a point however that the intravascular volume will be low on the arterial side leading to pre renal azotemia so with continued diuretics the creatinine will improve and then will worsen as the swelling improves. At that point we will have to figure out an optimal situation where we have a mildly high creatinine plus improved swelling. The whole reason for everything above his because of his pulmonary hypertension. This is probably multifactorial. He smokes. He has untreated sleep apnea which is probably a large part of it. He also has aortic stenosis. I would think that if he had pulmonary hypertension because of aortic stenosis, however, he would have pulmonary edema as well as swelling so I think the aortic stenosis is not playing as much of a role in the current physiological state. We discussed at length the importance of treating sleep apnea. See below. (3) Anemia in stage 3a chronic kidney disease: Code(s): N18.31 - Chronic kidney disease, stage 3a; D63.1 - Anemia in chronic kidney disease Status: Acute Assessment and Plan: The patient's hemoglobin is low. This may be multifactorial as well. he may have iron deficiency. He may have Epogen deficiency because of his high creatinine. He may have some blood loss. Will get iron levels and reticulocyte count to see where we are. (4) Benign essential hypertension: Code(s): I10 - Essential (primary) hypertension Status: Chronic Assessment and Plan: The patient has systemic hypertension but his blood pressure is doing well mostly because of his pulmonary hypertension And low forward flow.. (5) Obstructive sleep apnea: Code(s): G47.33 - Obstructive sleep apnea (adult) (pediatric) Status: Acute Assessment and Plan: The patient has severe obstructive sleep apnea. We know this because he was fitted with a mask during his 1st sleep test. We discussed at length the importance of treating his sleep apnea. Sleep apnea cannot only cause pulmonary hypertension and all the swelling but also can cause cardiac issues brain issues and kidney issues and also potentially mortality. We discussed the adrenaline surges over and over again every night. I suggested he go back to the sleep doctor to get fitted for a proper mask which can make it more comfortable for him at home. I suggested he but the mass going to watch TV for a little while every night for a few nights in a row just so he get used to the mask before trying it all night long because he seems to panic when he tries to sleep with i
[2020-08-28 11:26] LABS: Immature Reticulocyte Fraction 36.5 % (3.0-15.9); Reticulocyte Hemoglobin Conten 25.8 pg (28.2-35.7); Reticulocyte Percent 1.88 % (0.7-4.3); Reticulocytes Absolute 0.06 B/L (32.2-175.7)
[2020-08-28 11:36] LABS: Creatine Kinase 58 U/L (55-170)
[2020-08-28 11:46] LABS: Complement C3 112 mg/dL (88-165)
[2020-08-28 11:52] LABS: Glucose Point of Care 113 (65-105)
[2020-08-28 12:04] LABS: Iron 32 ug/dL (49-181)
[2020-08-28 12:14] LABS: Percent Iron Saturation 7 % (20-50)
[2020-08-28 12:40] LABS: Parathyroid Intact 101.8 pg/mL (7.5-53.5)
[2020-08-28 12:53] LABS: Vitamin D 25 Hydroxy < 12.8 ng/mL
[2020-08-28 13:16] LABS: Erythrocyte Sedimentation Rate 56 mm/hr (0-20)
[2020-08-28 13:18] LABS: Add Urine Microscopic? NO; Appearance Urine Clear (Clear); Bilirubin Urine Negative (Negative); Blood Urine Negative (Negative); Color Urine Straw (Yellow); Glucose Urine UA Negative (Negative); Ketones Urine Negative (Negative); Leukocyte Esterase Ur Negative LEU/UL (NEGATIVE); Nitrate Urine Negative (Negative); Protein Urine Negative (Negative); Specific Grav Ur 1.006 (1.001-1.035); Urobilinogen Urine Negative mg/dL (<2.0)
[2020-08-28 13:38] LABS: Eosinophil Urine None Seen % (None Seen)
[2020-08-28 13:56] LABS: Creatinine Urine 16.3 mg/dL; Total Protein Urine Random 11 mg/dL; Ur Ttl Prot Creatinine Ratio 0.67 mg/mg (0-0.20)
[2020-08-28 14:02] LABS: Sodium Urine Random 127 meq/L
[2020-08-28] MEDS: BUMETANIDE INJ 2.5 MG/10 ML VIAL 2 MG IV PUSH (17:19)
[2020-08-28 18:30] LABS: Glucose Point of Care 112 (65-105)
[2020-08-28] MEDS: NICOTINE (*PBKC) 21 MG PATCH 1 PATCH TRANSDERM (20:39)
[2020-08-29] MEDS: ALBUTEROL SULFATE NEB 2.5 MG/0.5 ML INH 5 MG INHALATION ×2 (02:24→08:39)
[2020-08-29 02:25] VITALS: PULSE 89; RESP 18
[2020-08-29 02:37] VITALS: PULSE 87; RESP 18
[2020-08-29 06:00] VITALS: BP 114/61; PULSE 86; RESP 18; TEMP 36.9; O2SAT 92
[2020-08-29 06:03] LABS: Basophils Percent Auto 0.5 % (0.2-1.2); Eosinophils Absolute Auto 0.1 K/mm3 (0-0.3); Eosinophils Percent Auto 0.8 % (0-4.4); Hematocrit 27.6 % (42.0-52.0); Hemoglobin 8.4 g/dL (14.0-18.0); Immature Granulocyte Absolute 0.02 K/mm3 (0.00-0.031); Immature Granulocyte Percent A 0.3 % (0-0.5); Lymphocytes Absolute Auto 0.75 K/mm3 (0.9-3.2); Lymphocytes Percent Auto 11.3 % (18.3-44.2); Mean Corpuscular HGB Conc 30.4 g/dl (32-36); Mean Corpuscular Hemoglobin 27.7 pg (26-34); Mean Corpuscular Volume 91.1 fl (80-100); Mean Platelet Volume 9.6 fl (7.4-10.4); Monocytes Absolute Auto 0.9 K/mm3 (0.1-0.6); Neutrophils Absolute Auto 4.9 K/mm3 (1.3-6.7); Neutrophils Percent Auto 74.1 % (45.5-73.1); Platelet Count Result 203 k/mm3 (150-375); Red Blood Count 3.03 M/mm3 (4.6-6.20); Red Cell Distribution Width 17.7 % (11.5-14.5); White Blood Count 6.6 K/mm3 (4.5-10.0)
[2020-08-29 06:14] LABS: Albumin Level 3.5 g/dL (3.5-5.1); Anion Gap 4 mmol/L (8-16); Blood Urea Nitrogen 38 mg/dL (9-20); Calcium 8.4 mg/dL (8.4-10.2); Carbon Dioxide 39 mmol/L (22-30); Chloride 93 mmol/L (98-107); Estimated CRCL calculation 58 ml/min; Estimated Glomerular Filt Rate 41; Glucose 101 mg/dL (75-110); Magnesium 1.8 mg/dL (1.6-2.3); Potassium 3.5 mmol/L (3.4-5.0); Sodium 136 mmol/L (137-145)
[2020-08-29 07:30] LABS: Glucose Point of Care 97 (65-105)
[2020-08-29 08:40] VITALS: PULSE 84; RESP 20; O2SAT 97
[2020-08-29 08:52] VITALS: PULSE 85; RESP 20
[2020-08-29] MEDS: BUMETANIDE INJ 2.5 MG/10 ML VIAL 2 MG IV PUSH (09:05)
[2020-08-29] MEDS: ENOXAPARIN 40 MG/0.4 ML SYRINGE SUB-Q (09:05)
[2020-08-29] MEDS: ASPIRIN 81 MG ENTERIC TABLET PO (09:05)
[2020-08-29] MEDS: ATORVASTATIN 40 MG TABLET 80 MG PO (09:05)
[2020-08-29 09:06] VITALS: PULSE 86
[2020-08-29] MEDS: METOPROLOL TARTRATE 50 MG TAB PO (09:06)
[2020-08-29] MEDS: FERROUS SULFATE 324 MG TABLET PO (09:06)
[2020-08-29] MEDS: EUCERIN CREAM 120 GM JAR 1 APPLIC TOPICAL (09:06)
[2020-08-29] MEDS: metOLazone 5 MG TABLET PO (09:06)
[2020-08-29] MEDS: THIAMINE HCL 200 MG/2 ML VIAL 100 MG IV PUSH (09:07)
[2020-08-29] MEDS: SILVERGEL (ELTA) 45 ML 1 APPLIC TOPICAL (09:07)
--- NOTE | 2020-08-29 09:10 | PM.DS ---
DS: Admitting Diagnosis Admitting Diagnosis Admitting Diagnosis: CHF exacerbation DS: Discharge Diagnosis Discharge Diagnosis (1) Acute exacerbation of CHF (congestive heart failure): Qualifiers: Heart failure type: unspecified Qualified Code(s): I50.9 - Heart failure, unspecified Code(s): I50.9 - Heart failure, unspecified Status: Acute Assessment and Plan: Right sided heart failure with similar findings of RV dysfunction, tricuspid regurgitation, and severe pulmonary HTN on Echo this stay compared to last year; worsened noted. Patient still reporting improved edema and increased UOP again today. No SOB outside of his normal SOB associated with COPD. Reports compliance with home medications, however, noncompliant with strict 2 gram sodium diet; understands importance of following diet. Discussed with Dr. Paz and rec increasing metolazone to 5 mg daily; okay for discharge today. 2 gram sodium prudent, 1500 cc fluid restricted diet recommended daily weights after discharge Transition back to home Bumex 2 mg PO BID Increase metolazone from 2.5 mg to 5 mg daily at discharge per Nephrology rec Appreciate Nephrology rec; follow up with Dr. Paz next month F/u with PCP and Cardiology as well Leg elevation (2) COPD (chronic obstructive pulmonary disease): Code(s): J44.9 - Chronic obstructive pulmonary disease, unspecified Status: Chronic Assessment and Plan: No acute issues at the moment Continue bronchodilators. (3) Obstructive sleep apnea: Code(s): G47.33 - Obstructive sleep apnea (adult) (pediatric) Status: Acute Assessment and Plan: I do not believe this has been formally diagnosed with outpatient sleep study, although previous inpatient Apnea Link has strongly suggested OLIVE. CPAP trialed during hospitalization last year, although patient only could tolerate 1 hour and refused to wear CPAP after this; politely refused any further work up at that time. After lengthy conversations between patient, myself and Dr. Paz, patient now agreeable to outpatient sleep study Sleep study as outpatient Dr. Weiss referral (4) Open wound of left lower extremity: Qualifiers: Encounter type: initial encounter Qualified Code(s): S81.802A - Unspecified open wound, left lower leg, initial encounter Code(s): S81.802A - Unspecified open wound, left lower leg, initial encounter Status: Acute Assessment and Plan: Local wound care WC consult; appreciate rec Monitor (5) Coronary artery disease: Qualifiers: Associated angina: without angina Coronary Disease-Associated Artery/Lesion type: [place] artery [place] vs. transplanted heart: [place] heart Qualified Code(s): I25.10 - Atherosclerotic heart disease of [place] coronary artery without angina pectoris Code(s): I25.10 - Atherosclerotic heart disease of [place] coronary artery without angina pectoris Status: Chronic Assessment and Plan: No chest pain. Continue beta miryam and ASA. (6) Paroxysmal atrial fibrillation: Code(s): I48.0 - Paroxysmal atrial fibrillation Status: Chronic Assessment and Plan: The patient has not been on anticoagulants for some time due to past GI bleed. Rate controlled. Appears to be in sinus rhythm during stay Continue beta miryam and ASA therapy. (7) CKD (chronic kidney disease): Qualifiers: Chronic kidney disease stage: unspecified stage Qualified Code(s): N18.9 - Chronic kidney disease, unspecified Code(s): N18.9 - Chronic kidney disease, unspecified Status: Chronic Assessment and Plan: Cr 1.70 again today; slightly better from a few months ago, a
--- NOTE | 2020-08-29 09:49 | PM.PNNEP ---
Progress Note: A&P Assessment and Plan (1) Chronic kidney disease, stage 3a: Code(s): N18.31 - Chronic kidney disease, stage 3a Status: Acute Assessment and Plan: the patient has mild chronic kidney disease. His GFR actually is most the time below 60 but occasionally is above 60. Most likely this is related to sleep apnea, pulmonary hypertension and chronic pre renal azotemia, with possible component from former systemic hypertension. Vascular disease is probably playing a role as well since he does have coronary artery disease. Currently he seems to be settling in with a baseline creatinine of around 1.7. It may improve going forward. His creatinine will probably very with his fluid status and diuretic dose. (2) Acute kidney injury: Code(s): N17.9 - Acute kidney failure, unspecified Status: Acute Assessment and Plan: the patient's creatinine was higher than usual on admission. The acute change was most likely due to renal venous hypertension. Will continue aggressive diuretics and see what happens with the creatinine. Once it starts going up we will have to back off. Treating his sleep apnea will probably improve this scenario. (3) Anemia in stage 3a chronic kidney disease: Code(s): N18.31 - Chronic kidney disease, stage 3a; D63.1 - Anemia in chronic kidney disease Status: Acute Assessment and Plan: The patient's hemoglobin is low. This may be multifactorial as well. His iron saturation is low. He is going home today so he will get oral iron. Will follow his CBC as an outpatient (4) Benign essential hypertension: Code(s): I10 - Essential (primary) hypertension Status: Chronic Assessment and Plan: The patient has systemic hypertension but his blood pressure is doing well mostly because of his pulmonary hypertension and low forward flow. (5) Obstructive sleep apnea: Code(s): G47.33 - Obstructive sleep apnea (adult) (pediatric) Status: Acute Assessment and Plan: He will see Dr. Weiss as an outpatient. (6) Coronary artery disease: Qualifiers: Coronary Disease-Associated Artery/Lesion type: [place] artery [place] vs. transplanted heart: [place] heart Associated angina: without angina Qualified Code(s): I25.10 - Atherosclerotic heart disease of [place] coronary artery without angina pectoris Code(s): I25.10 - Atherosclerotic heart disease of [place] coronary artery without angina pectoris Status: Chronic Assessment and Plan: The patient has had an CO. He does not have any chest pain now. (7) Paroxysmal atrial fibrillation: Code(s): I48.0 - Paroxysmal atrial fibrillation Status: Chronic Assessment and Plan: He does not seem to have AFib right now (8) Tobacco abuse: Code(s): Z72.0 - Tobacco use Status: Acute Assessment and Plan: we discussed the importance of stopping smoking. He says that when he is in the hospital he does not have any craving to smoke at all. Maybe he can use this as a spring board to stop at home. (9) Alcohol abuse: Code(s): F10.10 - Alcohol abuse, uncomplicated Status: Chronic Assessment and Plan: he drinks 3 beers and 2 vodkas every night. He knows he should stop this. He just sits at home all day long and has a hard time not having a few. Subjective Date/time seen: 08/29/20 09:49 Interval history: Patient is alert. Feels better. He urinated 4L yesterday. Review of Systems Cardiovascular: Cardiovascular: Reports no additional cardiovascular complaints Respiratory: Respiratory: Reports no additional respiratory complaints Gastrointestinal: Gastrointestinal: Reports no additional gastrointestinal complaints Genitourinary: Genitourinary: Reports no additional male genitourinary complaints Exam Narrative: Exam Narrative: WDWN in NAD skin no rash except for chronic v
--- NOTE | 2020-08-29 12:22 | PC.NURSE ---
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
[2020-08-29 13:17] LABS: IFOB Positive Control Positive; Immunochemical Fecal Occult Bl Negative (N)
[2020-08-30 23:46] LABS: Kappa\\Lambda Light Chains 1.34 (0.26-1.65); Lambda Light Chain 66.5 mg/L (5.7-26.3)
[2020-08-31 20:02] LABS: Complement Total CH50 >60 U/mL (31-60)
== END 2020-08-29 11:40 | disposition home or self-care (01) | DRG 291 ==
LOC: ANHED 19:56 → ANH3MEDSUR 23:01
PROVIDERS: Internal Medicine Nephrology; Physician Assistant; Admitting Provider Family Medicine; Emergency Provider General Practice; PCP Internal Medicine; Visit Provider Family Medicine
DX: I13.0 Hypertensive heart and chronic kidney disease with heart failure and stage 1 through stage 4 chronic kidney disease, or unspecified chronic kidney disease (principal); I50.43 Acute on chronic combined systolic (congestive) and diastolic (congestive) heart failure; N17.9 Acute kidney failure, unspecified; I50.810 Right heart failure, unspecified; I27.20 Pulmonary hypertension, unspecified; S81.802A Unspecified open wound, left lower leg, initial encounter; I08.2 Rheumatic disorders of both aortic and tricuspid valves; D63.1 Anemia in chronic kidney disease; E11.22 Type 2 diabetes mellitus with diabetic chronic kidney disease; N18.31 Chronic kidney disease, stage 3a; E11.51 Type 2 diabetes mellitus with diabetic peripheral angiopathy without gangrene; J44.9 Chronic obstructive pulmonary disease, unspecified; I25.10 Atherosclerotic heart disease of native coronary artery without angina pectoris; I48.0 Paroxysmal atrial fibrillation; F17.210 Nicotine dependence, cigarettes, uncomplicated; F10.10 Alcohol abuse, uncomplicated; G47.33 Obstructive sleep apnea (adult) (pediatric); E78.00 Pure hypercholesterolemia, unspecified; I25.2 Old myocardial infarction; Z79.899 Other long term (current) drug therapy; Z91.11 Patient's noncompliance with dietary regimen; Z95.5 Presence of coronary angioplasty implant and graft
CPT/HCPCS: 36415; 71046; 76775; 80048; 80053; 80069; 81003; 82274; 82306; 82550; 82570; 82728; 82948; 83540; 83550; 83735; 83880; 83883; 83970; 84156; 84300; 84443; 85025; 85046; 85610; 85652; 85730; 85999; 86038; 86140; 86160; 86162; 86334; 86335; 93005; 93306; 94640; 96372; 96374; 96375; 96376; 99285; A9270; G0378; J1650; J1940; J3411

== ENCOUNTER 2020-10-02 14:19 | Inpatient (IN) | payer MEDICARE, SELFPAY ==
[2020-10-02] VITALS (50 sets, daily range): BP systolic 88–118; BP diastolic 25–82; PULSE 72–130; RESP 14–31; TEMP 36.2–36.5; O2SAT 73–100; BMI 33.6
--- NOTE | ~2020-10-02 | CT_ITS ---
EXAMINATION: CT abdomen pelvis wo con DATE: 10/03/2020 18:01 INDICATION: Abdominal pain, nausea and vomiting TECHNIQUE: Computed tomography (CT) of the abdomen and pelvis was performed without intravenous contr ast. The dose-length product was 1499.40 mGy-cm. Automated exposure control and iterative reconstruct ion technique were employed. COMPARISON: No prior studies for comparison. . FINDINGS: There is chronic right basilar airspace consolidation. Small right pleural effusion. Border line heart size. Trace left pleural effusion. Small fat-containing supraumbilical hernia. Moderate sized fat-containing periumbilical hernia. The l iver, spleen, pancreas, adrenal glands are unremarkable. There are nonobstructing bilateral renal sto adelaida. No bladder is present. Gallbladder is distended. No ureteral stones or hydronephrosis. There is diverticulitis of the sigmoid colon. No evidence for perforation or abscess. Workman catheter present i n the bladder. Moderate osteoarthritis of the hips. Moderate lumbar spondylosis. IMPRESSION: 1. Acute sigmoid diverticulitis without evidence for perforation or abscess. 2: Chronic right basilar airspace disease which may represent a combination of atelectasis/scarring a nd/or atypical pneumonia. 3: Small pleural effusions, right greater than left. 4: Nonobstructing bilateral nephrolithiasis. 5: Fat-containing supraumbilical and periumbilical hernias.. Reviewed, dictated and finalized at location A. IMPRESSION: 1. Acute sigmoid diverticulitis without evidence for perforation or abscess. 2: Chronic right basilar airspace disease which may represent a combination of atelectasis/scarring and/or atypical pneumonia. 3: Small pleural effusions, right greater than left. 4: Nonobstructing bilateral nephrolithiasis. 5: Fat-containing supraumbilical and periumbilical hernias..
--- NOTE | ~2020-10-02 | XR_ITS ---
EXAMINATION: XR chest 2V DATE: 10/02/2020 15:20 INDICATION: Weakness TECHNIQUE: AP and lateral views of the chest are obtained. COMPARISON: 08/26/2020; CT, 08/02/2017 FINDINGS: There is a small chronic right pleural effusion with chronic rounded atelectasis of the rig ht middle and lower lobes. No acute airspace opacities are identified. There is no pneumothorax. The cardiomediastinal silhouette is normal. There are bridging osteophytes at multiple levels in the spin e, consistent with diffuse idiopathic skeletal hyperostosis (DISH). IMPRESSION: 1. No acute cardiopulmonary abnormality. Reviewed, dictated and finalized at location B.
--- NOTE | ~2020-10-02 | US_ITS ---
US renal BI 10/03/2020 15:01 Procedure: Realtime transabdominal ultrasound of the kidneys and bladder. Indication: Elevated creatinine. Comparison: Ultrasound dated 08/28/2020 Findings: Renal echotexture is normal bilaterally without hydronephrosis, contour deforming mass or r enal calculus. The right kidney measures 12.3 cm and left kidney measures 9.9 cm. Bladder is not wel l distended for evaluation. There is Workman catheter present.. Impression: 1: Unremarkable renal ultrasound. No stones, masses or hydronephrosis. Reviewed, dictated and finalized at location A. Impression: 1: Unremarkable renal ultrasound. No stones, masses or hydronephrosis.
--- NOTE | ~2020-10-02 | XR_ITS ---
EXAMINATION: XR chest 1V portable DATE: 10/06/2020 10:58 INDICATION: Shortness of breath. TECHNIQUE: A single frontal view of the chest was obtained. COMPARISON: Chest 2 views 10/02/2020 FINDINGS: There is a small right pleural effusion. There are chronic airspace opacities in right lowe r lung zone. There is mild volume loss in right hemithorax. No pneumothorax. Cardiomegaly is noted. IMPRESSION: 1. Chronic small right pleural effusion. 2. Chronic airspace opacities in right lower lung zone, consistent with rounded atelectasis. 3. Cardiomegaly. Reviewed, dictated and finalized at location A.
--- NOTE | ~2020-10-02 | XR_ITS ---
EXAMINATION: XR chest 1V portable DATE: 10/07/2020 05:56 INDICATION: Shortness of breath TECHNIQUE: frontal view of the chest was obtained. COMPARISON: Chest radiograph dated 10/06/2020 and 08/26/[address] dated 10/03/2020 FINDINGS: Again seen is volume loss in the right hemithorax with rightward shift of the heart and mediastinum. Chronic opacities in the right lower lung zone with blunting at the costophrenic angle consistent wit h small right pleural effusion and associated atelectasis and/or pneumonia. No pulmonary edema, pneum othorax or left-sided pleural effusion. Mild cardiomegaly. There are bridging osteophytes at multiple levels in the spine, consistent with diffuse idiopathic skeletal hyperostosis (DISH). IMPRESSION: 1. Small right pleural effusion with unchanged chronic atelectasis/scarring at the right lower lung z one. 2. Cardiomegaly. Reviewed, dictated and finalized at location A. IMPRESSION: 1. Small right pleural effusion with unchanged chronic atelectasis/scarring at the right lower lung zone. 2. Cardiomegaly.
--- NOTE | ~2020-10-02 | XR_ITS ---
EXAMINATION: XR abdomen obstructive series DATE: 10/03/2020 14:21 INDICATION: Diarrhea. Abdominal pain. TECHNIQUE: Upright and supine views of the abdomen were obtained. COMPARISON: Chest 2 views 10/02/2020 FINDINGS: There are no dilated loops of bowel. No free intraperitoneal gas. There is a small right pl eural effusion. There are airspace opacities in right lower lung zone. IMPRESSION: 1. Normal bowel gas pattern. 2. Small right pleural effusion. 3. Airspace opacities in right lower lung zone, consistent with atelectasis versus pneumonia. Reviewed, dictated and finalized at location A. IMPRESSION: 1. Normal bowel gas pattern. 2. Small right pleural effusion. 3. Airspace opacities in right lower lung zone, consistent with atelectasis verónica shauna pneumonia.
--- NOTE | 2020-10-02 14:30 | ECG_ITS ---
Measurements Intervals [place] Rate: 126 P: [place]: 0 QRS: 24 QRSD: 104 T: 246 QT: 290 QTc: 421 Interpretive Statements ATRIAL FLUTTER/TACHYCARDIA WITH RAPID VENTRICULAR RESPONSE INCOMPLETE RIGHT BUNDLE BRANCH BLOCK ST-T WAVE ABNORMALITY IN ANTEROLAT/INF LEADS- CONSIDER ISCHEMIA BASELINE ARTIFACT- I, II, III, AVR, AVF, V1-V6 ABNORMAL ECG Electronically Signed On 10-04-2020 19:40:44 CDT by Epifanio Morton D.O.
--- NOTE | 2020-10-02 14:30 | ECG_ITS ---
Measurements Intervals [place] Rate: 126 P: [place]: 0 QRS: 24 QRSD: 104 T: 246 QT: 290 QTc: 421 Interpretive Statements ATRIAL FLUTTER/TACHYCARDIA WITH RAPID VENTRICULAR RESPONSE INCOMPLETE RIGHT BUNDLE BRANCH BLOCK ST-T WAVE ABNORMALITY IN ANTEROLAT/INF LEADS- CONSIDER ISCHEMIA BASELINE ARTIFACT- I, II, III, AVR, AVF, V1-V6 ABNORMAL ECG Electronically Signed On 10-02-2020 14:42:25 CDT by Epifanio Morton D.O.
--- NOTE | 2020-10-02 14:56 | ED.WEAKNESS ---
HPI - Weakness General Chief complaint: Weakness Stated complaint: WEAKNESS Time Seen by Provider: 10/02/20 14:42 Source: patient, family, EMS and RN notes reviewed Mode of arrival: EMS Limitations: no limitations History of Present Illness HPI Narrative: Patient 64 years old white male brought to the emergency room by his because of general weakness and general body aches including back, knees, chest, legs, started few weeks ago, got worse over the last 7 days. Patient also complaining of severe diarrhea cough clear liquid stool over the last 7 days. Last food intake over 3 days ago, drinks alcohol daily, smokes, does not use drugs. 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 Patient has been vaccinated for COVID-19 months ago. Currently patient main complaint is back and knees pain. Patient drinks daily, the is telling me that patient blood pressure all the time low in the 80s for average 2 years. No also telling me that patient had a fall in the bathtub about 1 week ago lost his balance and fell backward. Patient denies any new symptoms after the fall different than his regular symptoms prior to the fall. Patient did not come to the emergency room at that time because he experiencing no new symptoms. Related Data Home Medications Medication Instructions Recorded Confirmed albuterol sulfate 2.5 mg INHALATION BID PRN 08/26/20 09/22/20 aspirin 81 mg PO DAILY 08/26/20 09/22/20 atorvastatin 80 mg PO DAILY 08/26/20 09/22/20 metoprolol tartrate 50 mg PO Q12H 10/02/20 10/02/20 Allergies Allergy/AdvReac Type Severity Reaction Status Date / Time No Known Allergies Allergy Verified 10/02/20 14:31 Review of Systems Review of Systems: Narrative: CONSTITUTIONAL: Denies fever, chills, or sweats. EYES: Denies visual changes, redness, or discharge. ENT: Denies rhinorrhea, congestion, sore throat, or otalgia. CARDIOVASCULAR: Denies chest pain, palpitations, or edema. RESPIRATORY: Denies cough or dyspnea. GASTROINTESTINAL: Diarrhea GENITOURINARY: Denies dysuria or hematuria. SKIN: Denies rash or itching. MUSCULOSKELETAL: Denies back pain, joint pain, or myalgia. NEUROLOGIC: Denies headache, numbness, or weakness. PSYCHIATRIC: Denies anxiety or depression. 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 Right ventricular chamber dimension is severely enlarged. 2. Right ventricular systolic function is moderate to severely reduced. 3. Prominent moderator band. 4. Flattening of the septum in diastole and systole consistent with right ventricular volume and pressure overload. 5. Right atrial chamber dimension is markedly enlarged. 6. There is mild aortic valve stenosis with a peak velocity of 186 cm/s, mean gradient of 7 mmHg, and aortic valve area of 1.6 cm2. 7. There is mild aortic valve calcification. 8. There is moderate tricuspid valve regurgitation. 9. Mild thickening with suggested focal calcification of tricuspid valve which cannot be further characterized given limited visualization. 10. Moderate pulmonary hypertension, estimated pulmonary arterial systolic pressure is 56 mmHg. 11. Dilated inferior vena cava with <50% collapse upon inspiration consis
[2020-10-02] MEDS: SODIUM CHLORIDE 0.9% IV 1,000 ML 999 ML IV CONT ×3 (15:25→17:36)
[2020-10-02 15:45] LABS: Hematocrit 31.1 % (42.0-52.0); Hemoglobin 10.6 g/dL (14.0-18.0); Mean Corpuscular HGB Conc 34.1 g/dl (32-36); Mean Corpuscular Hemoglobin 28.6 pg (26-34); Mean Corpuscular Volume 83.8 fl (80-100); Mean Platelet Volume 9.3 fl (7.4-10.4); Platelet Count Result 340 k/mm3 (150-375); Red Blood Count 3.71 M/mm3 (4.6-6.20); Red Cell Distribution Width 17.6 % (11.5-14.5); White Blood Count 14.5 K/mm3 (4.5-10.0)
--- NOTE | 2020-10-02 15:51 | PC.NURSE ---
called Jimmy in lab to add ptt pt inr at [phone]
[2020-10-02 15:55] LABS: Lactic Acid Reflex 1.2 mmol/L (0.7-2.1)
[2020-10-02 15:56] LABS: Creatine Kinase 54 U/L (55-170)
[2020-10-02 15:58] LABS: Alveolar/Arterial O2 Gradient 44.6 mmHg; Base Excess ABG 7.4 mEq/l (+/-2.0); Fractional Inspired Oxygen 21 %; HCO3 ABG 30.1 mEq/l (22.0-26.0); Oxygen Content ABG 13.3 %vol (16.0-22.0); Oxygen Saturation ABG 94.6 % (95.0-100.0); Oxyhemoglobin 88.7 % THb (90.0-100.0); PCO2 ABG 35.3 mmHg (35.0-45.0); PO2 ABG 62.9 mmHg (80.0-100.0); Total Hemoglobin 10.6 g/dL (12.0-18.0)
[2020-10-02 16:00] LABS: CRP 5.4 mg/dL (<1.0)
[2020-10-02 16:00] LABS: Site Drawn LEFT BRACHIAL; pH ABG 7.548 (7.350-7.450)
[2020-10-02 16:01] LABS: Device ROOM AIR
[2020-10-02 16:05] LABS: Band Neutrophils Percent 3 % (0-6); Lymphocytes Absolute Manual 0.87 K/mm3 (1.1-4.5); Monocytes Absolute Manual 0.87 K/mm3 (0.1-0.90); Monocytes Percent Manual 6 % (3-9); Neutrophils Absolute Manual 12.76 K/mm3 (1.3-6.7); Neutrophils Percent Manual 85 % (46-73); Total Cells Counted 100
[2020-10-02 16:06] LABS: Alanine Aminotransferase 11 U/L (4-50); Albumin Level 3.9 g/dL (3.5-5.1); Alkaline Phosphatase 171 U/L (38-126); Anion Gap 14 mmol/L (8-16); Anisocytosis 2+ (NORMAL); Aspartate Amino Transferase 27 U/L (17-59); Bilirubin,Total 1.6 mg/dL (0.2-1.3); Blood Urea Nitrogen > 120 mg/dL (9-20); Calcium 8.7 mg/dL (8.4-10.2); Carbon Dioxide 35 mmol/L (22-30); Chloride 72 mmol/L (98-107); Estimated CRCL calculation 29 ml/min; Estimated Glomerular Filt Rate 21; Glucose 103 mg/dL (75-110); Platelet Estimate Adequate (Adequate); Sodium 121 mmol/L (137-145)
[2020-10-02 16:09] LABS: INR 0.9
[2020-10-02 16:10] LABS: Partial Thromboplastin Time 28.5 SECONDS (22.3-36.8)
--- NOTE | 2020-10-02 17:27 | PC.NURSE ---
pt refuses at this time to have urine straight cath. pt encouraged to attempt to void in urinal.
[2020-10-02 18:03] LABS: Add Urine Microscopic? YES; Appearance Urine Clear (Clear); Bacteria Urine Trace /hpf; Bilirubin Urine Negative (Negative); Blood Urine 1+ (Negative); Color Urine Yellow (Yellow); Glucose Urine UA Negative (Negative); Ketones Urine Negative (Negative); Leukocyte Esterase Ur Negative LEU/UL (Negative); Nitrate Urine Negative (Negative); Protein Urine Negative (Negative); Specific Grav Ur 1.012 (1.001-1.035); Squamous Epithelial Cell Urine Rare /hpf (Few); WBC Urine 0-3 /hpf
--- NOTE | 2020-10-02 18:18 | ECG_ITS ---
ATRIAL FLUTTER/TACHYCARDIA WITH RAPID VENTRICULAR RESPONSE INCOMPLETE RIGHT BUNDLE BRANCH BLOCK ST-T WAVE ABNORMALITY IN ANTEROLAT/INF LEADS- CONSIDER ISCHEMIA BASELINE ARTIFACT- I, II, III, AVR, AVL, AVF, V2 ABNORMAL ECG Electronically Signed On 10-02-2020 20:02:23 CDT by Epifanio Morton D.O. COMPARED TO ECG 10/02/2020 14:33:46 NO SIGNIFICANT CHANGES MTDD
--- NOTE | 2020-10-02 18:35 | PC.NURSE ---
liquid stool specimen sent to lab
[2020-10-02] MEDS: LORazepam INJ (*CRX) 2 MG/ML VIAL 1 MG IV PUSH (18:57)
[2020-10-02] MEDS: POTASSIUM CHLORIDE 20 MEQ PACKET (FOR LIQUID) 40 MEQ PO (19:29)
[2020-10-02] MEDS: dilTIAZem HCl INJ 25 MG/5 ML VIAL 10 MG IV PUSH (19:30)
--- NOTE | 2020-10-02 20:23 | PC.NURSE ---
Per ANAHI Donis in IMU, room not clean yet. She states will call when it is.
--- NOTE | 2020-10-02 20:29 | PM.IMHP ---
H&P: HPI History of Present Illness Date/Time: 10/02/20 20:29 Chief Complaint: Weakness Narrative: 64-year-old male with past medical history of chronic kidney disease, hypertension, paroxysmal atrial fibrillation, systolic and diastolic congestive heart failure and COPD who presented to the ER with increasing weakness. The patient reports that he has slept on the couch since his heart attack several years ago. However however the last couple of weeks he has been unable to get up to go to the bathroom. He has resorted to using depends. He has had is severe diarrhea over the last week and is passing stool every time he goes to pass gas. He reports that the stool is watery. His stool initially started out as black but is now more brown in appearance. He has not been on any recent antibiotic therapy he denies any aches and naked can't abdominal pain. He has had progressive decreased appetite. He denies any nausea or vomiting. he has not had any food intake in the last 3 days. He has had a 30 kg weight loss since I last saw the patient in June 2019. He is down 24 kg since his hospitalization August 2020. he had a colonoscopy June 2019. He denies any dysphagia. He denies any dysuria or gross hematuria. He has a chronic large ventral abdominal hernia which he reports is not causing him any pain. He has had some increased shortness of breath from baseline. He denies any orthopnea. He reports this staying sharp pain in his bilateral feet and ankles. He reports his pain is worse when he tries to stand up. He reports that the pain is severe. He has noticed increased restless leg movements. He denies any cough or congestion. She does continue to smoke and drinks couple of alcoholic beverages a daily. In the ER the patient was noted to be mildly hypotensive. His blood pressures improved with fluid resuscitation. It appears that he received 3 L of isotonic fluids in the ER. Review of Systems Review of Systems: Narrative: 12 systems were reviewed with pertinent positives and negatives per HPI. Except as documented in the HPI, all other systems were reviewed and are negative. 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 Right ventricular chamber dimension is severely enlarged. 2. Right ventricular systolic function is moderate to severely reduced. 3. Prominent moderator band. 4. Flattening of the septum in diastole and systole consistent with right ventricular volume and pressure overload. 5. Right atrial chamber dimension is markedly enlarged. 6. There is mild aortic valve stenosis with a peak velocity of 186 cm/s, mean gradient of 7 mmHg, and aortic valve area of 1.6 cm2. 7. There is mild aortic valve calcification. 8. There is moderate tricuspid valve regurgitation. 9. Mild thickening with suggested focal calcification of tricuspid valve which cannot be further characterized given limited visualization. 10. Moderate pulmonary hypertension, estimated pulmonary arterial systolic pressure is 56 mmHg. 11. Dilated inferior vena cava with <50% collapse upon inspiration consistent with elevated right atrial pressure, 15 mmHg. 12. Left ventricular systolic function is normal, estimated at 55-60%. 13. There is mildly increased left ventricular wall thickness. 14. The left ventricular diastolic function is grade II diastolic
--- NOTE | 2020-10-02 21:33 | PC.NURSE ---
This patient, Solo Krishnan, was admitted to IMU Room 203-01. Patient/family oriented to hospital policies and general routines including ID bracelet, bed and alarms, visiting hours, pain management, procedures, bathroom and other care routines, personal items, smoking policy, room service/diet, and visiting hours. Information on how to activate the Rapid Response Team has been discussed. Patient/Family are encouraged to report perceived risks to care and to ask questions if they do not understand what they are told or what they should do.
[2020-10-02] MEDS: SODIUM CHLORIDE 0.9% IV 1,000 ML 125 ML IV CONT (21:49)
[2020-10-03] VITALS (16 sets, daily range): BP systolic 95–124; BP diastolic 50–86; PULSE 83–129; RESP 20–22; TEMP 36–36.6; O2SAT 95–100; BMI 33.6
[2020-10-03 05:32] LABS: Hematocrit 28.5 % (42.0-52.0); Hemoglobin 9.5 g/dL (14.0-18.0); Mean Corpuscular HGB Conc 33.3 g/dl (32-36); Mean Corpuscular Hemoglobin 27.9 pg (26-34); Mean Corpuscular Volume 83.8 fl (80-100); Mean Platelet Volume 9.3 fl (7.4-10.4); Platelet Count Result 311 k/mm3 (150-375); Red Cell Distribution Width 17.9 % (11.5-14.5); White Blood Count 12.4 K/mm3 (4.5-10.0)
[2020-10-03 05:43] LABS: Anion Gap 11 mmol/L (8-16); Blood Urea Nitrogen 115 mg/dL (9-20); Calcium 8.1 mg/dL (8.4-10.2); Carbon Dioxide 31 mmol/L (22-30); Chloride 83 mmol/L (98-107); Estimated CRCL calculation 39 ml/min; Estimated Glomerular Filt Rate 29; Glucose 88 mg/dL (75-110); Sodium 125 mmol/L (137-145)
[2020-10-03] MEDS: SODIUM CHLORIDE 0.9% IV 1,000 ML 125 ML IV CONT ×2 (06:04→18:33)
[2020-10-03 06:34] LABS: IFOB Positive Control Positive; Immunochemical Fecal Occult Bl Positive (N)
--- NOTE | 2020-10-03 09:30 | PM.CNCAR ---
Assessment and Plan Assessment and plan (1) Supraventricular arrhythmia: Code(s): I49.9 - Cardiac arrhythmia, unspecified Status: Acute Assessment and Plan: 64-year-old male with multiple medical problems-CAD status post PCI/drug-eluting stenting using 2.5 x 20 mm everolimus eluting stent on proximal LAD in the setting of VFib/TDP arrest on November 26 2013; PAF, severe pulmonary hypertension, CKD, COPD. Patient admitted to the hospital with generalized weakness, myalgias, fall, diarrhea. He was found to be in tachycardia, sinus tachycardia versus atrial flutter. He has been on IV diltiazem. Heart rates have improved. Tachycardia in the setting of hypoxemia, alcohol abuse with possible withdrawal, generalized debility/physical deconditioning. -switch IV diltiazem to short-acting oral diltiazem, which can be later switched to long-acting oral diltiazem. -continue to monitor on telemetry. -patient's recent echocardiogram reported to show moderate . Clinical and echocardiographic surveillance as an outpatient. (2) Coronary artery disease: Qualifiers: Coronary Disease-Associated Artery/Lesion type: douglas artery [place] vs. transplanted heart: douglas heart Associated angina: without angina Qualified Code(s): I25.10 - Atherosclerotic heart disease of douglas coronary artery without angina pectoris Code(s): I25.10 - Atherosclerotic heart disease of douglas coronary artery without angina pectoris Status: Chronic Assessment and Plan: Continue aspirin, statin. (3) Alcohol abuse: Code(s): F10.10 - Alcohol abuse, uncomplicated Status: Chronic Assessment and Plan: Patient has history of heavy alcohol abuse. Monitor for delirium tremens. DT prophylaxis as per primary team. (4) Tobacco dependence: Code(s): F17.200 - Nicotine dependence, unspecified, uncomplicated Status: Chronic Assessment and Plan: Smoking cessation counseling was done. (5) Acute renal failure superimposed on stage 3a chronic kidney disease: Qualifiers: Acute renal failure type: unspecified Qualified Code(s): N17.9 - Acute kidney failure, unspecified; N18.31 - Chronic kidney disease, stage 3a Code(s): N17.9 - Acute kidney failure, unspecified; N18.31 - Chronic kidney disease, stage 3a Status: Acute Assessment and Plan: Management as per primary team (6) Physical deconditioning: Code(s): R53.81 - Other malaise Status: Acute Assessment and Plan: May consider inpatient rehab (7) COPD (chronic obstructive pulmonary disease): Code(s): J44.9 - Chronic obstructive pulmonary disease, unspecified Status: Chronic Assessment and Plan: Management as per primary team (8) Pulmonary hypertension: Code(s): I27.20 - Pulmonary hypertension, unspecified Status: Acute Assessment and Plan: Pulmonary hypertension likely secondary to underlying intrinsic lung disease/COPD. Smoking cessation, supplemental oxygen as needed. History of Present Illness History of Present Illness Consult date/time: 10/03/20 09:30 Date of consult: 10/03/2020 Reason for consult: Tachycardia Requesting physician:MD Yecenia Chief complaint: Generalized weakness HPI: 64-year-old male with multiple medical problems-CAD status post PCI/drug-eluting stenting using 2.5 x 20 mm everolimus eluting stent on proximal LAD in the setting of VFib/TDP arrest on November 26 2013; PAF, severe pulmonary hypertension, CKD, COPD. Patient was brought by his to [facility] on 10/02/2020 complaints of generalized weakness, debility and fall. At baseline, patient states that he is able to walk about 2 ft. He gets tired, and also has pain in the knees. Patient has baseline dyspnea on mild exertion. Denies chest pain. He has occasional dizziness without syncope. Patient states that he drinks 4 beers a day. Patient also had diarrhea. He also continues to
--- NOTE | 2020-10-03 09:35 | PM.IMPN ---
Progress Note: A&P Assessment and Plan (1) Acute renal failure superimposed on stage 3a chronic kidney disease: Qualifiers: Acute renal failure type: unspecified Qualified Code(s): N17.9 - Acute kidney failure, unspecified; N18.31 - Chronic kidney disease, stage 3a Code(s): N17.9 - Acute kidney failure, unspecified; N18.31 - Chronic kidney disease, stage 3a Status: Acute Assessment and Plan: Most likely related to dehydration secondary to diarrhea Nephrology consult IV fluid Monitor intake and output Daily CMP (2) Hypokalemia: Code(s): E87.6 - Hypokalemia Status: Acute Assessment and Plan: Replace (3) Chronic hyponatremia: Code(s): E87.1 - Hypo-osmolality and hyponatremia Status: Acute Assessment and Plan: Monitor CMP (4) Atrial flutter: Qualifiers: Atrial flutter type: unspecified Qualified Code(s): I48.92 - Unspecified atrial flutter Code(s): I48.92 - Unspecified atrial flutter Status: Acute Assessment and Plan: AFib with RVR Cardizem drip cardiology consult (5) Physical deconditioning: Code(s): R53.81 - Other malaise Status: Acute Assessment and Plan: PT OT evaluation (6) Diarrhea: Qualifiers: Diarrhea type: unspecified type Qualified Code(s): R19.7 - Diarrhea, unspecified Code(s): R19.7 - Diarrhea, unspecified Status: Acute Assessment and Plan: Stool culture C diff Conservative management (7) Protein-calorie malnutrition, severe: Code(s): E43 - Unspecified severe protein-calorie malnutrition Status: Acute Assessment and Plan: Dietitian consult Subjective Date/time seen: 10/03/20 09:35 Interval history: Patient seen and examined Patient with past medical history of systolic CHF presented to the hospital with generalized weakness weight loss diarrhea was found to have acute on top of chronic renal failure also AFib with RVR treated with Cardizem drip IV fluid cardiology and nephrology was consulted C diff was ordered Patient feels weak still complains of episodes of diarrhea Patient denies fever headache chest pain shortness of breath I am seeing the patient for acute renal failure Exam Narrative: Exam Narrative: Alert Chest decreased air entry bilateral Abdomen nontender nondistended CVS S1 + S2 No significant Lower extremity edema Objective Data Vital Signs Vital Signs: Vital Signs - 24 hr 10/02/20 14:19 10/02/20 14:28 10/02/20 14:29 Temperature 97.1 F L Pulse Rate 125 H 126 H 126 H Respiratory Rate 18 25 H 18 Blood Pressure 98/51 L 118/25 L Pulse Oximetry 90 90 10/02/20 14:30 10/02/20 14:31 10/02/20 14:32 Temperature Pulse Rate 126 H 125 H 126 H Respiratory Rate 27 H 18 18 Blood Pressure 98/51 L 89/57 L Pulse Oximetry 95 92 92 10/02/20 14:36 10/02/20 14:45 10/02/20 14:46 Temperature Pulse Rate 125 H 126 H 124 H Respiratory Rate 22 H 22 H Blood Pressure 88/63 L Pulse Oximetry 10/02/20 15:00 10/02/20 15:01 10/02/20 15:21 Temperature Pulse Rate 121 H 121 H 104 H Respiratory Rate 22 H 20 24 H Blood Pressure 90/55 L Pulse Oximetry 85 L 10/02/20 15:22 10/02/20 15:30 10/02/20 15:45 Temperature Pulse Rate 128 H 124 H 130 H Respiratory Rate 21 H 22 H 21 H Blood Pressure 88/51 L Pulse Oximetry 90 89 L 10/02/20 16:00 10/02/20 16:15 10/02/20 16:30 Temperature Pulse Rate 125 H 124 H 126 H Respiratory Rate 18 20 22 H Blood Pressure Pulse Oximetry 92 91 93 10/02/20 16:45 10/02/20 17:00 10/02/20 17:15 Temperature Pulse Rate 125 H 127 H 124 H Respiratory Rate 23 H 31 H 30 H Blood Pressure Pulse Oximetry 91 92 73 L 10/02/20 17:23 10/02/20 17:30 10/02/20 17:31 Temperature Pulse Rate 103 H 105 H 105 H Respiratory Rate 14 25 H 21 H Blood Pressure 89/57 L 88/52 L Pulse Oximetry 96 93 94 10/02/20 17:45 10/02/20 17:46 10/02/20 18:0
[2020-10-03] MEDS: POTASSIUM CHLORIDE 20 MEQ TABLET.ER PO (09:46)
[2020-10-03] MEDS: ATORVASTATIN 40 MG TABLET 80 MG PO (09:46)
[2020-10-03] MEDS: PANTOPRAZOLE 40 MG TABLET PO (09:47)
[2020-10-03] MEDS: FERROUS SULFATE 324 MG TABLET PO ×2 (09:47→18:27)
[2020-10-03] MEDS: ASPIRIN 81 MG ENTERIC TABLET PO (09:47)
[2020-10-03] MEDS: POTASSIUM CHLORIDE 20 MEQ PACKET (FOR LIQUID) 40 MEQ PO (09:51)
[2020-10-03] MEDS: dilTIAZem HCL 30 MG TABLET PO ×3 (11:07→23:42)
--- NOTE | 2020-10-03 11:13 | PM.CNNEP ---
Assessment and Plan Assessment and plan (1) CHRISTOPHER (acute kidney injury): Code(s): N17.9 - Acute kidney failure, unspecified Status: Acute Assessment and Plan: Solo has acute kidney injury. His baseline creatinine is around 2.4. He came in with a creatinine of 3.1. In addition his BUN generally runs in the 2 digits but was over 100 in the ER. He has no swelling when he generally has lots of swelling. I suspect that between diarrhea and poor appetite cause he is not eating in the last 4 days, and continuing to take his diuretics he has become dehydrated. I agree with giving him some IV fluids for now. Will get an ultrasound to make sure does not have something else going on. Will also get a CPK since he is on a statin. Other causes likely neural nephritis, interstitial nephritis, vascular disease are less likely in this clinical scenario. (2) Stage 3b chronic kidney disease: Code(s): N18.32 - Chronic kidney disease, stage 3b Status: Acute Assessment and Plan: The patient has chronic kidney disease. It is hard to tease out how much of this is chronic pre renal azotemia due to his right-sided heart failure and how much is due to parenchymal injury from hypertension and vascular disease due to his hyperlipidemia. We are treating everything as if they were all included in the cause. (3) Diarrhea: Qualifiers: Diarrhea type: unspecified type Qualified Code(s): R19.7 - Diarrhea, unspecified Code(s): R19.7 - Diarrhea, unspecified Status: Acute Assessment and Plan: The patient has frequent liquid stools but it is unclear what the volume is. I think between this and poor appetite is what is making him feel bad. Lack of control make some uncomfortable as well. Will check an abdominal film just to make sure he is not severely constipated with liquid flowing around it. He is not a very active person. (4) Right-sided heart failure: Code(s): I50.810 - Right heart failure, unspecified Status: Acute Assessment and Plan: This is due to sleep apnea and smoking. He is trying to fix both. (5) Chronic hyponatremia: Code(s): E87.1 - Hypo-osmolality and hyponatremia Status: Acute Assessment and Plan: The sodium is most likely low because of his dehydration. His sodium corrected from 121-125. Will check another sodium level this evening to make sure it is not correcting too quickly with the fluids. He does seem to have some mild hyponatremia mcc, I think also due to diuretics. Will check thyroid, cortisol to be sure nothing else is going on. He is on metolazone which can also lead to hyponatremia. But this is all based on how much water he drinks. And he has been on metolazone for a long time so I do not think this is the primary cause. (6) Benign essential hypertension: Code(s): I10 - Essential (primary) hypertension Status: Chronic Assessment and Plan: His blood pressure is under good control. It has been low in the last few months because of his right-sided heart failure. He is on diltiazem now mostly for rate control. (7) Hyperlipidemia: Code(s): E78.5 - Hyperlipidemia, unspecified Status: Acute Assessment and Plan: He gets atorvastatin for this. (8) Prediabetes: Code(s): R73.03 - Prediabetes Status: Acute Assessment and Plan: He is trying to avoid sugar in his diet (9) Tobacco dependence: Code(s): F17.200 - Nicotine dependence, unspecified, uncomplicated Status: Chronic Assessment and Plan: Trying to cut back on cigarettes (10) Alcohol abuse: Code(s): F10.10 - Alcohol abuse, uncomplicated Status: Chronic Assessment and Plan: Formerly a heavy alcohol user (11) Obstructive sleep apnea: Code(s): G47.33 - Obstructive sleep apnea (adult) (pediatric) Status: Acute Assessment and Plan: He is getting sched
[2020-10-03 13:03] LABS: Creatinine Urine 91.7 mg/dL; Total Protein Urine Random 19 mg/dL; Ur Ttl Prot Creatinine Ratio 0.21 mg/mg (0-0.20)
[2020-10-03 13:18] LABS: Iron 115 ug/dL (49-181)
[2020-10-03 13:25] LABS: Creatine Kinase 287 U/L (55-170)
[2020-10-03 13:27] LABS: Percent Iron Saturation 48 % (20-50)
[2020-10-03 14:15] LABS: Eosinophil Urine None Seen % (None Seen)
[2020-10-03 14:42] LABS: Folic Acid 6.2 ng/mL (2.76->20)
[2020-10-03 14:49] LABS: Sodium Urine Random < 5 meq/L
[2020-10-03] MEDS: SODIUM CHLORIDE 0.9% IV 500 ML IV CONT (15:01)
[2020-10-03] MEDS: methylPREDNISolone SOD SUCC 40 MG VIAL IV PUSH (15:02)
[2020-10-03] MEDS: traMADol HCL (*CRX) 50 MG TABLET PO (15:35)
[2020-10-03] MEDS: metroNIDAZOLE 500 MG/ISO 100ML 500 MG/100 ML BAG 100 MG IVPB ×2 (15:37→21:46)
[2020-10-03 16:54] LABS: Sodium 126 mmol/L (137-145)
[2020-10-03 18:10] LABS: Glucose Point of Care 110 mg/dl (65-105)
[2020-10-04] VITALS (15 sets, daily range): BP systolic 99–124; BP diastolic 50–72; PULSE 78–115; RESP 16–22; TEMP 35.9–36.6; O2SAT 92–99
[2020-10-04 00:18] LABS: Glucose Point of Care 118 mg/dl (65-105)
[2020-10-04] MEDS: SODIUM CHLORIDE 0.9% IV 1,000 ML 125 ML IV CONT (03:33)
[2020-10-04 05:58] LABS: Glucose Point of Care 122 mg/dl (65-105)
[2020-10-04] MEDS: metroNIDAZOLE 500 MG/ISO 100ML 500 MG/100 ML BAG 100 MG IVPB ×3 (06:11→21:46)
[2020-10-04] MEDS: dilTIAZem HCL 30 MG TABLET PO ×4 (06:11→23:43)
[2020-10-04 08:09] LABS: Hematocrit 25.3 % (42.0-52.0); Hemoglobin 8.1 g/dL (14.0-18.0); Mean Corpuscular Hemoglobin 27.7 pg (26-34); Mean Corpuscular Volume 86.6 fl (80-100); Mean Platelet Volume 9.3 fl (7.4-10.4); Platelet Count Result 260 k/mm3 (150-375); Red Blood Count 2.92 M/mm3 (4.6-6.20); Red Cell Distribution Width 18.2 % (11.5-14.5); White Blood Count 12.8 K/mm3 (4.5-10.0)
[2020-10-04 08:13] LABS: Alanine Aminotransferase 10 U/L (4-50); Albumin Level 3.1 g/dL (3.5-5.1); Alkaline Phosphatase 112 U/L (38-126); Anion Gap 11 mmol/L (8-16); Aspartate Amino Transferase 33 U/L (17-59); Bilirubin,Total 0.9 mg/dL (0.2-1.3); Blood Urea Nitrogen 98 mg/dL (9-20); Calcium 7.9 mg/dL (8.4-10.2); Carbon Dioxide 27 mmol/L (22-30); Chloride 92 mmol/L (98-107); Estimated CRCL calculation 54 ml/min; Estimated Glomerular Filt Rate 41; Glucose 112 mg/dL (75-110); Potassium 3.4 mmol/L (3.4-5.0); Sodium 130 mmol/L (137-145)
[2020-10-04] MEDS: POTASSIUM CHLORIDE 20 MEQ TABLET.ER PO (09:01)
[2020-10-04] MEDS: FERROUS SULFATE 324 MG TABLET PO ×2 (09:01→17:14)
[2020-10-04] MEDS: ASPIRIN 81 MG ENTERIC TABLET PO (09:01)
[2020-10-04] MEDS: ATORVASTATIN 40 MG TABLET 80 MG PO (09:01)
[2020-10-04] MEDS: PANTOPRAZOLE 40 MG TABLET PO (09:02)
[2020-10-04] MEDS: FOLIC ACID 1 MG TABLET PO (09:02)
[2020-10-04] MEDS: THIAMINE HCL 200 MG/2 ML VIAL 100 MG IV PUSH (09:02)
[2020-10-04 09:18] LABS: IFOB Positive Control Positive; Immunochemical Fecal Occult Bl Positive (N)
--- NOTE | 2020-10-04 10:28 | PM.IMPN ---
Progress Note: A&P Assessment and Plan (1) Acute renal failure superimposed on stage 3a chronic kidney disease: Qualifiers: Acute renal failure type: unspecified Qualified Code(s): N17.9 - Acute kidney failure, unspecified; N18.31 - Chronic kidney disease, stage 3a Code(s): N17.9 - Acute kidney failure, unspecified; N18.31 - Chronic kidney disease, stage 3a Status: Acute Assessment and Plan: Most likely related to dehydration secondary to diarrhea Nephrology consult Treated with IV hydration Improved Monitor intake and output Daily CMP (2) Hypokalemia: Code(s): E87.6 - Hypokalemia Status: Acute Assessment and Plan: Replace (3) Chronic hyponatremia: Code(s): E87.1 - Hypo-osmolality and hyponatremia Status: Acute Assessment and Plan: Monitor CMP improved (4) Atrial flutter: Qualifiers: Atrial flutter type: unspecified Qualified Code(s): I48.92 - Unspecified atrial flutter Code(s): I48.92 - Unspecified atrial flutter Status: Acute Assessment and Plan: AFib with RVR treated with Cardizem drip cardiology consult switched to oral Cardizem Cardiology recommendation appreciated Occult blood is positive GI is consulted (5) Physical deconditioning: Code(s): R53.81 - Other malaise Status: Acute Assessment and Plan: PT OT evaluation (6) Diarrhea: Qualifiers: Diarrhea type: unspecified type Qualified Code(s): R19.7 - Diarrhea, unspecified Code(s): R19.7 - Diarrhea, unspecified Status: Acute Assessment and Plan: Stool culture C diff Started IV antibiotics pending GI final recommendation (7) Protein-calorie malnutrition, severe: Code(s): E43 - Unspecified severe protein-calorie malnutrition Status: Acute Assessment and Plan: Dietitian consult (8) Chronic anemia: Code(s): D64.9 - Anemia, unspecified Status: Acute Assessment and Plan: Most likely anemia of chronic disease complicated by chronic blood loss anemia transfuse if hemoglobin below 7 GI was consulted fecal occult blood is positive (9) Chronic alcoholism: Code(s): F10.20 - Alcohol dependence, uncomplicated Status: Acute Assessment and Plan: [facility] protocol Subjective Date/time seen: 10/04/20 10:28 Interval history: Patient seen and examined Patient with past medical history of systolic CHF presented to the hospital with generalized weakness weight loss diarrhea was found to have acute on top of chronic renal failure also AFib with RVR treated with Cardizem drip IV fluid cardiology and nephrology was consulted C diff was ordered Patient feels weak still complains of episodes of diarrhea Renal function improved Occult blood is positive Hemoglobin is trending down Haptoglobin couple months ago was 8.4 at hospitalization hemoglobin was 10 currently hemoglobin 8.1 I think most likely patient has chronic blood loss anemia secondary to GI bleed GI was consulted transfuse to keep hemoglobin above 7 Patient denies fever headache chest pain shortness of breath I am seeing the patient for acute renal failure Exam Narrative: Exam Narrative: Alert Chest decreased air entry bilateral Abdomen nontender nondistended CVS S1 + S2 No significant Lower extremity edema Objective Data Vital Signs Vital Signs: Vital Signs - 24 hr 10/03/20 12:00 10/03/20 14:00 10/03/20 16:00 Temperature 97.8 F 97.6 F Pulse Rate 93 129 H 95 Pulse Rate [Monitor] Respiratory Rate 20 20 Blood Pressure 99/50 L 95/59 L Pulse Oximetry 99 96 10/03/20 18:00 10/03/20 20:00 10/03/20 22:00 Temperature 96.8 F L Pulse Rate 88 83 94 Pulse Rate [Monitor] 86 Respiratory Rate 22 H Blood Pressure 124/58 L Pulse Oximetry 99 10/03/20 23:43 10/03/20 23:54 10/04/20 00:00 Temperature 97.6 F Pulse Rate 89 89 98 Pulse Rate [Monitor] 89 Respiratory Rate 20 20 Blood Pr
--- NOTE | 2020-10-04 10:36 | PM.PNNEP ---
Progress Note: A&P Assessment and Plan (1) CHRISTOPHER (acute kidney injury): Code(s): N17.9 - Acute kidney failure, unspecified Status: Acute Assessment and Plan: Solo has acute kidney injury. His baseline creatinine is around 2.4. He came in with a creatinine of 3.1. Today his creatinine has fallen to 1.7. Renal ultrasound is negative Urine electrolytes are pre renal, not surprisingly because they were pre renal even when he had edema from his right-sided heart failure. Urine eosinophils are negative Most likely is high creatinine was from his diarrhea and poor intake. If we continue fluid took probably start swelling up again. Will cut back fluids to 75 an hour since he is not eating very well and he continues to have some diarrhea. (2) Stage 3b chronic kidney disease: Code(s): N18.32 - Chronic kidney disease, stage 3b Status: Acute Assessment and Plan: The patient has chronic kidney disease. Baseline creatinine is around 2.4. CKD likely from hypertension and vascular disease plus chronic pre renal azotemia from right-sided heart failure. (3) Diarrhea: Qualifiers: Diarrhea type: unspecified type Qualified Code(s): R19.7 - Diarrhea, unspecified Code(s): R19.7 - Diarrhea, unspecified Status: Acute Assessment and Plan: The patient has frequent liquid stools but it is unclear what the volume is. CT shows acute diverticulitis. He is getting antibiotics. (4) Right-sided heart failure: Code(s): I50.810 - Right heart failure, unspecified Status: Acute Assessment and Plan: This is due to sleep apnea and smoking. He is trying to fix both. (5) Chronic hyponatremia: Code(s): E87.1 - Hypo-osmolality and hyponatremia Status: Acute Assessment and Plan: The sodium is most likely low because of his dehydration. Sodium level has corrected from 125-130 in the last 24 hours. This is a good rate. (6) Benign essential hypertension: Code(s): I10 - Essential (primary) hypertension Status: Chronic Assessment and Plan: His blood pressure is under good control. It has been low in the last few months because of his right-sided heart failure. He is on diltiazem now mostly for rate control. (7) Hyperlipidemia: Code(s): E78.5 - Hyperlipidemia, unspecified Status: Acute Assessment and Plan: He gets atorvastatin for this. (8) Prediabetes: Code(s): R73.03 - Prediabetes Status: Acute Assessment and Plan: He is trying to avoid sugar in his diet (9) Tobacco dependence: Code(s): F17.200 - Nicotine dependence, unspecified, uncomplicated Status: Chronic Assessment and Plan: Trying to cut back on cigarettes (10) Alcohol abuse: Code(s): F10.10 - Alcohol abuse, uncomplicated Status: Chronic Assessment and Plan: Formerly a heavy alcohol user (11) Obstructive sleep apnea: Code(s): G47.33 - Obstructive sleep apnea (adult) (pediatric) Status: Acute Assessment and Plan: He is getting scheduled for a sleep study Subjective Date/time seen: 10/04/20 10:36 Interval history: Still having diarrhea and stool incontinence. The volume of stool each bowel movement is moderate according to the nurses. He is making plenty of urine Review of Systems Cardiovascular: Cardiovascular: Reports no additional cardiovascular complaints Respiratory: Respiratory: Reports no additional respiratory complaints Gastrointestinal: Gastrointestinal: Reports no additional gastrointestinal complaints Genitourinary: Genitourinary: Reports no additional male genitourinary complaints Exam Narrative: Exam Narrative: WDWN in NAD skin no rash. Chronic venous stasis changes in both lower extremities head ncat lungs clear cor reg no rub abd BS+ nontender and soft ext no edema. Objective Data Vital Signs Vital Signs: Vit
--- NOTE | 2020-10-04 10:42 | PM.PNCARD ---
Progress Note: A&P Assessment and Plan (1) Supraventricular arrhythmia: Code(s): I49.9 - Cardiac arrhythmia, unspecified Status: Acute Assessment and Plan: 64-year-old male with multiple medical problems-CAD status post PCI/drug-eluting stenting using 2.5 x 20 mm everolimus eluting stent on proximal LAD in the setting of VFib/TDP arrest on November 26 2013; PAF, severe pulmonary hypertension, CKD, COPD. Patient admitted to the hospital with generalized weakness, myalgias, fall, diarrhea. He was found to be in tachycardia, sinus tachycardia versus atrial flutter. Was initially treated with IV diltiazem. Tachycardia in the setting of hypoxemia, alcohol abuse with possible withdrawal, generalized debility/physical deconditioning. -continue short-acting oral diltiazem, which can be later switched to long-acting oral diltiazem. Heart rates are better now. - FOBT reportedly positive. Not a candidate for anticoagulation at this time. -continue to monitor on telemetry. -patient's recent echocardiogram reported to show moderate . Clinical and echocardiographic surveillance as an outpatient. (2) Coronary artery disease: Qualifiers: Coronary Disease-Associated Artery/Lesion type: [place] artery [place] vs. transplanted heart: [place] heart Associated angina: without angina Qualified Code(s): I25.10 - Atherosclerotic heart disease of [place] coronary artery without angina pectoris Code(s): I25.10 - Atherosclerotic heart disease of [place] coronary artery without angina pectoris Status: Chronic Assessment and Plan: Continue aspirin, statin. Monitor H&H. (3) Alcohol abuse: Code(s): F10.10 - Alcohol abuse, uncomplicated Status: Chronic Assessment and Plan: Patient has history of heavy alcohol abuse. Monitor for delirium tremens. DT prophylaxis as per primary team. (4) Tobacco dependence: Code(s): F17.200 - Nicotine dependence, unspecified, uncomplicated Status: Chronic Assessment and Plan: Smoking cessation counseling was done. (5) Acute renal failure superimposed on stage 3a chronic kidney disease: Qualifiers: Acute renal failure type: unspecified Qualified Code(s): N17.9 - Acute kidney failure, unspecified; N18.31 - Chronic kidney disease, stage 3a Code(s): N17.9 - Acute kidney failure, unspecified; N18.31 - Chronic kidney disease, stage 3a Status: Acute Assessment and Plan: Management as per primary team (6) Physical deconditioning: Code(s): R53.81 - Other malaise Status: Acute Assessment and Plan: May consider inpatient rehab (7) COPD (chronic obstructive pulmonary disease): Code(s): J44.9 - Chronic obstructive pulmonary disease, unspecified Status: Chronic Assessment and Plan: Management as per primary team (8) Pulmonary hypertension: Code(s): I27.20 - Pulmonary hypertension, unspecified Status: Acute Assessment and Plan: Pulmonary hypertension likely secondary to underlying intrinsic lung disease/COPD. Smoking cessation, supplemental oxygen as needed. Subjective Date/time seen: 10/04/20 10:42 Date of Service: 10/04/2020 Interval history: Patient reports improvement in his generalized weakness and myalgias. Creatinine has improved. Exam Narrative: Exam Narrative: PHYSICAL EXAMINATION: GENERAL: Weak appearing male with long buchanan, no acute distress MENTAL STATUS: Flat affect EYES: Extraocular movements intact, no pallor EARS: External ears appear normal, hearing grossly normal NOSE: Normal and patent, no discharge MOUTH: Mucous membranes dry NECK: Supple, no JVD CHEST: Coarse breath sounds bilaterally HEART: Normal rate, somewhat distant heart sounds ABDOMEN: Soft, nontender NEUROLOGICAL: Alert, oriented, normal speech MUSCULOSKELETAL: No major deformity, no amputation EXTREMITIES: No pedal edema, no clubbing, no cyanosis SKIN: Ecchymo
[2020-10-04 11:40] LABS: Glucose Point of Care 160 mg/dl (65-105)
[2020-10-04] MEDS: POTASSIUM CHLORIDE 20 MEQ TABLET PO (12:19)
--- NOTE | 2020-10-04 12:51 | WPDGICN ---
Assessment and Plan Assessment and plan (1) Diverticulitis large intestine: Code(s): K57.32 - Diverticulitis of large intestine without perforation or abscess without bleeding Status: Acute Assessment and Plan: continue with iv antibiotics, patient denies abdominal pain he already had colonoscopy last year and reviewed findings. (2) Occult blood in stools: Code(s): R19.5 - Other fecal abnormalities Status: Acute Assessment and Plan: probably combination from diverticulitis, hemorrhoids no need to repeat scopes unless obvious overt gib he also has chronic anemia for which egd and colonoscopy were done by Dr Snell last year (3) Diarrhea: Qualifiers: Diarrhea type: unspecified type Qualified Code(s): R19.7 - Diarrhea, unspecified Code(s): R19.7 - Diarrhea, unspecified Status: Acute Assessment and Plan: with diverticulitis on antibiotics pending stool samples (4) Acute renal failure superimposed on stage 3a chronic kidney disease: Qualifiers: Acute renal failure type: unspecified Qualified Code(s): N17.9 - Acute kidney failure, unspecified; N18.31 - Chronic kidney disease, stage 3a Code(s): N17.9 - Acute kidney failure, unspecified; N18.31 - Chronic kidney disease, stage 3a Status: Acute Assessment and Plan: continue to monitor (5) Anemia in stage 3a chronic kidney disease: Code(s): N18.31 - Chronic kidney disease, stage 3a; D63.1 - Anemia in chronic kidney disease Status: Acute (6) Chronic alcoholism: Code(s): F10.20 - Alcohol dependence, uncomplicated Status: Acute Assessment and Plan: cessation of alcohol medical management (7) Supraventricular arrhythmia: Code(s): I49.9 - Cardiac arrhythmia, unspecified Status: Acute Assessment and Plan: evauated by cardiology (8) Tobacco dependence: Code(s): F17.200 - Nicotine dependence, unspecified, uncomplicated Status: Chronic (9) Alcohol abuse: Code(s): F10.10 - Alcohol abuse, uncomplicated Status: Acute GI Consult Note Consult date/time: 10/04/20 12:51 HPI: Solo Krishnan is a 64 year old male with history of chronic kidney disease (creat 1.7-2), chronic anemia (hb 8-9 which prompted EGD and colonoscopy [address] Snell that showed mild gastritis and colon polyps/hemorrhoids), hypertension, paroxysmal atrial fibrillation, systolic and diastolic congestive heart failure, CAD status post PCI/drug-eluting stenting in the setting of VFib/TDP arrest on November 26 2013; PAF, severe pulmonary hypertension, COPD and alcohol use. He came here with increasing weakness and diarrhea for last few days with accidents (small amount of loose stool sometimes unable to make it to restroom), started using depends. Denies any blood in stool. CT scan a/p reviewed, showed acute sigmoid diverticulitis without evidence for perforation or abscess, chronic right basilar airspace disease, small pleural effusions, right greater than left, nonobstructing bilateral nephrolithiasis, fat-containing supraumbilical and periumbilical hernias. Also with chronic anemia hb 8, occult blood in stool positive. Started on iv rocephin and flagyl. Also had SVT and started on cardizem by cardiology. Review of Systems Constitutional: Constitutional: Reports weakness Eyes: Eyes: Denies blurry vision ENT: Reports Normal hearing present Cardiovascular: Cardiovascular: Reports palpitations Respiratory: Respiratory: Denies cough Gastrointestinal: Gastrointestinal: Reports diarrhea Genitourinary: Genitourinary: Denies hematuria Musculoskeletal: Musculoskeletal: Reports no additional musculoskeletal complaints Neurologic: Denies headache(s) Psychiatric: Psychiatric: Denies confusion PMFSH Past Medical History Medical History (Updated 10/04/20 @ 13:06 by Boni Cowan MD) Acute kidney injury Anemia in stage 3a chronic kidn
[2020-10-04 18:08] LABS: Glucose Point of Care 184 mg/dl (65-105)
[2020-10-04 23:59] LABS: Glucose Point of Care 153 mg/dl (65-105)
[2020-10-05] VITALS (11 sets, daily range): BP systolic 91–114; BP diastolic 46–64; PULSE 44–85; RESP 16–26; TEMP 36.1–36.6; O2SAT 91–96
[2020-10-05 04:53] LABS: Hematocrit 24.9 % (42.0-52.0); Hemoglobin 7.9 g/dL (14.0-18.0); Mean Corpuscular HGB Conc 31.7 g/dl (32-36); Mean Corpuscular Hemoglobin 27.9 pg (26-34); Mean Platelet Volume 9.9 fl (7.4-10.4); Platelet Count Result 275 k/mm3 (150-375); Red Blood Count 2.83 M/mm3 (4.6-6.20); Red Cell Distribution Width 18.3 % (11.5-14.5); White Blood Count 12.3 K/mm3 (4.5-10.0)
[2020-10-05 05:11] LABS: Alanine Aminotransferase 10 U/L (4-50); Albumin Level 3.1 g/dL (3.5-5.1); Alkaline Phosphatase 114 U/L (38-126); Anion Gap 8 mmol/L (8-16); Aspartate Amino Transferase 30 U/L (17-59); Bilirubin,Total 0.7 mg/dL (0.2-1.3); Blood Urea Nitrogen 106 mg/dL (9-20); Calcium 8.4 mg/dL (8.4-10.2); Carbon Dioxide 30 mmol/L (22-30); Chloride 94 mmol/L (98-107); Estimated CRCL calculation 54 ml/min; Estimated Glomerular Filt Rate 41; Glucose 128 mg/dL (75-110); Potassium 3.4 mmol/L (3.4-5.0); Sodium 132 mmol/L (137-145)
[2020-10-05] MEDS: metroNIDAZOLE 500 MG/ISO 100ML 500 MG/100 ML BAG 100 MG IVPB ×3 (05:55→22:22)
[2020-10-05] MEDS: dilTIAZem HCL 30 MG TABLET PO (05:57)
[2020-10-05 06:06] LABS: Glucose Point of Care 131 mg/dl (65-105)
[2020-10-05] MEDS: FERROUS SULFATE 324 MG TABLET PO ×2 (08:21→17:59)
[2020-10-05] MEDS: POTASSIUM CHLORIDE 20 MEQ TABLET.ER PO (08:22)
[2020-10-05] MEDS: ASPIRIN 81 MG ENTERIC TABLET PO (08:22)
[2020-10-05] MEDS: ATORVASTATIN 40 MG TABLET 80 MG PO (08:22)
[2020-10-05] MEDS: FOLIC ACID 1 MG TABLET PO (08:22)
[2020-10-05] MEDS: PANTOPRAZOLE 40 MG TABLET PO (08:23)
[2020-10-05] MEDS: THIAMINE HCL 200 MG/2 ML VIAL 100 MG IV PUSH (08:23)
--- NOTE | 2020-10-05 09:04 | PM.IMPN ---
Progress Note: A&P Assessment and Plan (1) Acute renal failure superimposed on stage 3a chronic kidney disease: Qualifiers: Acute renal failure type: unspecified Qualified Code(s): N17.9 - Acute kidney failure, unspecified; N18.31 - Chronic kidney disease, stage 3a Code(s): N17.9 - Acute kidney failure, unspecified; N18.31 - Chronic kidney disease, stage 3a Status: Acute Assessment and Plan: Most likely related to dehydration secondary to diarrhea secondary to acute diverticulitis Nephrology consult continue IV hydration Improved Monitor intake and output Daily CMP (2) Hypokalemia: Code(s): E87.6 - Hypokalemia Status: Acute Assessment and Plan: Replace (3) Chronic hyponatremia: Code(s): E87.1 - Hypo-osmolality and hyponatremia Status: Acute Assessment and Plan: Monitor CMP improved (4) Atrial flutter: Qualifiers: Atrial flutter type: unspecified Qualified Code(s): I48.92 - Unspecified atrial flutter Code(s): I48.92 - Unspecified atrial flutter Status: Acute Assessment and Plan: AFib with RVR treated with Cardizem drip cardiology consult switched to oral Cardizem Cardiology recommendation appreciated Occult blood is positive GI is consulted (5) Physical deconditioning: Code(s): R53.81 - Other malaise Status: Acute Assessment and Plan: PT OT evaluation (6) Diarrhea: Qualifiers: Diarrhea type: unspecified type Qualified Code(s): R19.7 - Diarrhea, unspecified Code(s): R19.7 - Diarrhea, unspecified Status: Acute Assessment and Plan: secondary to acute sigmoid diverticulitis continue IV antibiotics present on admission C diff IV antibiotics pending GI final recommendation (7) Protein-calorie malnutrition, severe: Code(s): E43 - Unspecified severe protein-calorie malnutrition Status: Acute Assessment and Plan: Dietitian consult (8) Chronic anemia: Code(s): D64.9 - Anemia, unspecified Status: Acute Assessment and Plan: Most likely anemia of chronic disease complicated by chronic blood loss anemia transfuse if hemoglobin below 7 GI was consulted fecal occult blood is positive patient has colonoscopy in the past shows hemorrhoid and diverticulosis (9) Chronic alcoholism: Code(s): F10.20 - Alcohol dependence, uncomplicated Status: Acute Assessment and Plan: KEN protocol Subjective Date/time seen: 10/05/20 09:04 Interval history: Patient seen and examined Patient with past medical history of systolic CHF presented to the hospital with generalized weakness weight loss diarrhea was found to have acute on top of chronic renal failure also AFib with RVR treated with Cardizem drip IV fluid cardiology and nephrology was consulted C diff was ordered Patient feels weak still complains of episodes of diarrhea Renal function improved Occult blood is positive Hemoglobin is trending down Haptoglobin couple months ago was 8.4 at hospitalization hemoglobin was 10 currently hemoglobin 8.1 I think most likely patient has chronic blood loss anemia secondary to GI bleed GI was consulted transfuse to keep hemoglobin above 7 CT scan of the abdomen showed acute sigmoid diverticulitis patient currently on IV antibiotics GI recommendation appreciated Patient denies fever headache chest pain shortness of breath I am seeing the patient for acute renal failure Exam Narrative: Exam Narrative: Alert Chest decreased air entry bilateral Abdomen nontender nondistended CVS S1 + S2 No significant Lower extremity edema Objective Data Vital Signs Vital Signs: Vital Signs - 24 hr 10/04/20 10:00 10/04/20 11:47 10/04/20 12:00 Temperature 97.8 F Pulse Rate 82 85 82 Pulse Rate [Monitor] 82 Respiratory Rate 16 16 Blood Pressure 102/50 L Pulse Oximetry 96 96 10/04/20 14:00 10/04/20 16:00 10/04/20 18:00 Temperature
--- NOTE | 2020-10-05 09:24 | PM.PNNEP ---
Progress Note: A&P Assessment and Plan (1) CHRISTOPHER (acute kidney injury): Code(s): N17.9 - Acute kidney failure, unspecified Status: Acute Assessment and Plan: Solo has acute kidney injury. His baseline creatinine is around 2.4. He came in with a creatinine of 3.1. Today his creatinine is stable at 1.7. Renal ultrasound is negative Urine electrolytes are pre renal, not surprisingly because they were pre renal even when he had edema from his right-sided heart failure. Urine eosinophils are negative Renal function has returned to baseline. It is actually better than it was but that is because he is off diuretics. He is still not eating so will hold off on diuretics for now. Will restart diuretics once he eats better. This can be done as an outpatient if needed. (2) Stage 3b chronic kidney disease: Code(s): N18.32 - Chronic kidney disease, stage 3b Status: Acute Assessment and Plan: The patient has chronic kidney disease. Baseline creatinine is around 2.4. CKD likely from hypertension and vascular disease plus chronic pre renal azotemia from right-sided heart failure. (3) Diarrhea: Qualifiers: Diarrhea type: unspecified type Qualified Code(s): R19.7 - Diarrhea, unspecified Code(s): R19.7 - Diarrhea, unspecified Status: Acute Assessment and Plan: Improved. He is on antibiotics for his diverticulitis (4) Right-sided heart failure: Code(s): I50.810 - Right heart failure, unspecified Status: Acute Assessment and Plan: This is due to sleep apnea and smoking. He is trying to fix both. (5) Chronic hyponatremia: Code(s): E87.1 - Hypo-osmolality and hyponatremia Status: Acute Assessment and Plan: The sodium is most likely low because of his dehydration. Sodium level has corrected from 130-132 in the last 24 hours. (6) Benign essential hypertension: Code(s): I10 - Essential (primary) hypertension Status: Chronic Assessment and Plan: His blood pressure is a bit soft now. Another reason to hold off on the diuretics for now (7) Hyperlipidemia: Code(s): E78.5 - Hyperlipidemia, unspecified Status: Acute Assessment and Plan: He gets atorvastatin for this. (8) Prediabetes: Code(s): R73.03 - Prediabetes Status: Acute Assessment and Plan: He is trying to avoid sugar in his diet (9) Tobacco dependence: Code(s): F17.200 - Nicotine dependence, unspecified, uncomplicated Status: Chronic Assessment and Plan: Trying to cut back on cigarettes (10) Alcohol abuse: Code(s): F10.10 - Alcohol abuse, uncomplicated Status: Chronic Assessment and Plan: Formerly a heavy alcohol user (11) Obstructive sleep apnea: Code(s): G47.33 - Obstructive sleep apnea (adult) (pediatric) Status: Acute Assessment and Plan: He is getting scheduled for a sleep study Subjective Date/time seen: 10/05/20 09:24 Interval history: Diarrhea has abated. He did not have a bowel movement overnight. He is making plenty of urine No swelling Exam Narrative: Exam Narrative: WDWN in NAD skin no rash. Chronic venous stasis changes in both lower extremities head ncat lungs clear cor reg no rub abd BS+ nontender and soft ext no edema. Objective Data Vital Signs Vital Signs: Vital Signs - 24 hr 10/04/20 10:00 10/04/20 11:47 10/04/20 12:00 Temperature 36.6 C Pulse Rate 82 85 82 Pulse Rate [Monitor] 82 Respiratory Rate 16 16 Blood Pressure 102/50 L Pulse Oximetry 96 96 10/04/20 14:00 10/04/20 16:00 10/04/20 18:00 Temperature 36.6 C Pulse Rate 82 80 80 Pulse Rate [Monitor] 80 Respiratory Rate 16 Blood Pressure 99/53 L Pulse Oximetry 92 10/04/20 19:35 10/04/20 20:00 10/04/20 21:55 Temperature 36.4 C Pulse Rate 86 83 85 Pulse Rate [Monitor] Respiratory Rate 16
--- NOTE | 2020-10-05 10:32 | PM.PNCARD ---
Progress Note: A&P Assessment and Plan (1) Supraventricular arrhythmia: Code(s): I49.9 - Cardiac arrhythmia, unspecified Status: Acute Assessment and Plan: 64-year-old male with multiple medical problems-CAD status post PCI/drug-eluting stenting using 2.5 x 20 mm everolimus eluting stent on proximal LAD in the setting of VFib/TDP arrest on November 26 2013; PAF, severe pulmonary hypertension, CKD, COPD. Patient admitted to the hospital with generalized weakness, myalgias, fall, diarrhea. He was found to be in tachycardia, sinus tachycardia versus atrial flutter. Was initially treated with IV diltiazem. Tachycardia happened in the setting of hypoxemia, alcohol abuse with possible withdrawal, generalized debility/physical deconditioning. Currently in sinus rhythm on telemetry. -change short-acting diltiazem to diltiazem CD 120 mg daily. Heart rates are better now. - patient's recent echocardiogram reported to show moderate . Clinical and echocardiographic surveillance as an outpatient. (2) Coronary artery disease: Qualifiers: Coronary Disease-Associated Artery/Lesion type: [place] artery [place] vs. transplanted heart: [place] heart Associated angina: without angina Qualified Code(s): I25.10 - Atherosclerotic heart disease of [place] coronary artery without angina pectoris Code(s): I25.10 - Atherosclerotic heart disease of [place] coronary artery without angina pectoris Status: Chronic Assessment and Plan: Continue aspirin, statin. Monitor H&H. (3) Alcohol abuse: Code(s): F10.10 - Alcohol abuse, uncomplicated Status: Chronic Assessment and Plan: Patient has history of heavy alcohol abuse. Monitor for delirium tremens. DT prophylaxis as per primary team. (4) Tobacco dependence: Code(s): F17.200 - Nicotine dependence, unspecified, uncomplicated Status: Chronic Assessment and Plan: Smoking cessation counseling was done. (5) Acute renal failure superimposed on stage 3a chronic kidney disease: Qualifiers: Acute renal failure type: unspecified Qualified Code(s): N17.9 - Acute kidney failure, unspecified; N18.31 - Chronic kidney disease, stage 3a Code(s): N17.9 - Acute kidney failure, unspecified; N18.31 - Chronic kidney disease, stage 3a Status: Acute Assessment and Plan: Management as per primary team (6) Physical deconditioning: Code(s): R53.81 - Other malaise Status: Acute Assessment and Plan: May consider inpatient rehab (7) COPD (chronic obstructive pulmonary disease): Code(s): J44.9 - Chronic obstructive pulmonary disease, unspecified Status: Chronic Assessment and Plan: Management as per primary team NEED FOR SUPPLEMENTAL OXYGEN AN OUTPATIENT TO BE DETERMINED BY THE PRIMARY TEAM (8) Pulmonary hypertension: Code(s): I27.20 - Pulmonary hypertension, unspecified Status: Acute Assessment and Plan: Pulmonary hypertension likely secondary to underlying intrinsic lung disease/COPD. Smoking cessation, supplemental oxygen as needed. Subjective Date/time seen: 10/05/20 10:32 Date of Service: 10/05/2020 Interval history: Patient states that he is short of breath since his supplemental oxygen was taken off. He denies chest pain. Exam Narrative: Exam Narrative: PHYSICAL EXAMINATION: GENERAL: Weak appearing male with long buchanan, no acute distress MENTAL STATUS: Normal affect EYES: Extraocular movements intact, no pallor EARS: External ears appear normal, hearing grossly normal NOSE: Normal and patent, no discharge MOUTH: Mucous membranes dry NECK: Supple, no JVD CHEST: Coarse breath sounds bilaterally HEART: Normal rate, somewhat distant heart sounds ABDOMEN: Soft, nontender NEUROLOGICAL: Alert, oriented, normal speech MUSCULOSKELETAL: No major deformity, no amputation EXTREMITIES: Mild pedal edema, no clubbing, no cyanosis SKIN: Ecchymosi
--- NOTE | 2020-10-05 11:15 | WPDGIPROGNO ---
Progress Note: A&P Assessment and Plan (1) Diverticulitis large intestine: Code(s): K57.32 - Diverticulitis of large intestine without perforation or abscess without bleeding Status: Acute Assessment and Plan: continue iv antibiotics, diarrhea better (2) Occult blood in stools: Code(s): R19.5 - Other fecal abnormalities Status: Acute Assessment and Plan: probably multifactorial no need to repeat scopes unless obvious overt gib he also has chronic anemia for which egd and colonoscopy were done by Dr Snell last year (3) Diarrhea: Qualifiers: Diarrhea type: unspecified type Qualified Code(s): R19.7 - Diarrhea, unspecified Code(s): R19.7 - Diarrhea, unspecified Status: Acute (4) Supraventricular arrhythmia: Code(s): I49.9 - Cardiac arrhythmia, unspecified Status: Acute Assessment and Plan: by cardiology, on oral med (5) Stage 3b chronic kidney disease: Code(s): N18.32 - Chronic kidney disease, stage 3b Status: Acute (6) Chronic alcoholism: Code(s): F10.20 - Alcohol dependence, uncomplicated Status: Acute (7) Chronic anemia: Code(s): D64.9 - Anemia, unspecified Status: Acute Assessment and Plan: low but stable Subjective Date/time seen: 10/05/20 11:15 Interval history: he says that diarrhea improved, no abdominal pain Review of Systems Review of Systems: All systems reviewed & are unremarkable except as noted in HPI and below Exam Const: General: comfortable and no acute distress HENMT: General nose exam: Normal nares present Eyes: General: appearance normal, both eyes and all related structures Neck: Neck: supple Resp: Auscultation: clear to auscultation bilaterally Cardio: Rate: regular rate GI: Inspection: non-distended GI Palp: Yes Soft to palpation and No Tenderness to palpation present (GI) Auscultation: normal bowel sounds Other: umbilical hernia, no pain, reducible Skin: Other: chronic venous stasis legs Neuro: Speech: normal speech Motor exam (neuro): Normal motor muscle tone present throughout Extrem: Other: trace edema legs Psych: Mental Status: mental status grossly normal Objective Data Vital Signs Vital Signs: Vital Signs - 24 hr 10/04/20 11:47 10/04/20 12:00 10/04/20 14:00 Temperature 97.8 F Pulse Rate 85 82 82 Pulse Rate [Monitor] 82 Respiratory Rate 16 16 Blood Pressure 102/50 L Pulse Oximetry 96 96 10/04/20 16:00 10/04/20 18:00 10/04/20 19:35 Temperature 97.9 F 97.6 F Pulse Rate 80 80 86 Pulse Rate [Monitor] 80 Respiratory Rate 16 16 Blood Pressure 99/53 L 100/55 L Pulse Oximetry 92 94 10/04/20 20:00 10/04/20 21:55 10/05/20 00:00 Temperature 97.8 F Pulse Rate 83 85 79 Pulse Rate [Monitor] Respiratory Rate 16 Blood Pressure 97/60 L Pulse Oximetry 95 10/05/20 02:00 10/05/20 04:00 10/05/20 05:52 Temperature 97.9 F Pulse Rate 79 80 81 Pulse Rate [Monitor] Respiratory Rate 17 Blood Pressure 91/54 L Pulse Oximetry 96 10/05/20 06:01 10/05/20 08:00 Temperature 98 F Pulse Rate 76 Pulse Rate [Monitor] Respiratory Rate 26 H Blood Pressure 96/58 L 97/57 L Pulse Oximetry 93 Intake/Output Intake/Output: Intake & Output 10/02/20 10/03/20 10/04/20 10/05/20 23:59 23:59 23:59 23:59 Intake Total 3000 3400 3220 350 Output Total 300 1400 1950 300 Balance 2700 2000 1270 50 Meds/Results Medications: Active Medications Generic Name Dose Route Start Last Admin Trade Name Freq PRN Reason Stop Dose Admin Albuterol 2.5 mg 10/02/20 21:28 Albuterol Sulfate Neb 2.5 Mg/3 Ml Inh INHALATION Q4H PRN Shortness Of Breath Aspirin 81 mg 10/03/20 09:00 10/05/20 08:22 Aspirin 81 Mg Enteric Tablet PO 81 mg DAILY PAULINA Administration Atorvastatin Calcium 80 mg 10/03/20 09:00 10/05/20 08:22 Atorvastatin 40 Mg Tablet PO 80 mg DAILY [facility] Administ
[2020-10-05] MEDS: SODIUM CHLORIDE 0.9% IV 1,000 ML 75 ML IV CONT (11:27)
[2020-10-05 12:04] LABS: Glucose Point of Care 114 mg/dl (65-105)
--- NOTE | 2020-10-05 13:51 | PC.NURSE ---
This patient, Solo Krishnan, was transferred to [ 240 ] on 10/05/20 at 1336. Personal belongings sent with patient. Report given to [ ANAHI Rodriguez. ]. Appropriate documentation sent with patient.
--- NOTE | 2020-10-05 13:54 | PC.NURSE ---
pt transferred in to room 240 via bed, oriented to new room and environment, pt is resting comfortably, denies c/o at this time
[2020-10-05 17:04] LABS: SARS-CoV-2 RNA PCR Negative
[2020-10-05 18:46] LABS: Glucose Point of Care 132 mg/dl (65-105)
[2020-10-05 22:31] LABS: Glucose Point of Care 135 mg/dl (65-105)
[2020-10-06] VITALS (7 sets, daily range): BP systolic 109–113; BP diastolic 44–71; PULSE 78–83; RESP 18–20; TEMP 35.8–36.7; O2SAT 97–100
[2020-10-06 05:02] LABS: Hematocrit 24.7 % (42.0-52.0); Hemoglobin 7.7 g/dL (14.0-18.0); Mean Corpuscular HGB Conc 31.2 g/dl (32-36); Mean Corpuscular Hemoglobin 27.6 pg (26-34); Mean Corpuscular Volume 88.5 fl (80-100); Mean Platelet Volume 9.6 fl (7.4-10.4); Platelet Count Result 245 k/mm3 (150-375); Red Blood Count 2.79 M/mm3 (4.6-6.20); Red Cell Distribution Width 18.6 % (11.5-14.5); White Blood Count 11.2 K/mm3 (4.5-10.0)
[2020-10-06 05:14] LABS: Alanine Aminotransferase 10 U/L (4-50); Alkaline Phosphatase 120 U/L (38-126); Anion Gap 6 mmol/L (8-16); Aspartate Amino Transferase 29 U/L (17-59); Bilirubin,Total 0.5 mg/dL (0.2-1.3); Blood Urea Nitrogen 82 mg/dL (9-20); Calcium 8.6 mg/dL (8.4-10.2); Carbon Dioxide 31 mmol/L (22-30); Chloride 100 mmol/L (98-107); Estimated CRCL calculation 61 ml/min; Estimated Glomerular Filt Rate 47; Glucose 108 mg/dL (75-110); Magnesium 1.8 mg/dL (1.6-2.3); Phosphorus 1.6 mg/dL (2.5-4.5); Potassium 3.4 mmol/L (3.4-5.0); Sodium 137 mmol/L (137-145)
[2020-10-06] MEDS: SODIUM CHLORIDE 0.9% IV 1,000 ML 75 ML IV CONT ×2 (05:59→18:45)
[2020-10-06] MEDS: metroNIDAZOLE 500 MG/ISO 100ML 500 MG/100 ML BAG 100 MG IVPB ×3 (05:59→22:16)
[2020-10-06] MEDS: traMADol HCL (*CRX) 50 MG TABLET PO (06:58)
[2020-10-06 08:02] LABS: Glucose Point of Care 117 mg/dl (65-105)
[2020-10-06] MEDS: FERROUS SULFATE 324 MG TABLET PO (08:41)
[2020-10-06] MEDS: ASPIRIN 81 MG ENTERIC TABLET PO (08:41)
[2020-10-06] MEDS: POTASSIUM CHLORIDE 20 MEQ TABLET.ER PO (08:41)
[2020-10-06] MEDS: ATORVASTATIN 40 MG TABLET 80 MG PO (08:41)
[2020-10-06] MEDS: THIAMINE HCL 200 MG/2 ML VIAL 100 MG IV PUSH (08:42)
[2020-10-06] MEDS: PANTOPRAZOLE 40 MG TABLET PO (08:42)
[2020-10-06] MEDS: FOLIC ACID 1 MG TABLET PO (08:42)
--- NOTE | 2020-10-06 09:00 | PM.PNNEP ---
Progress Note: A&P Assessment and Plan (1) CHRISTOPHER (acute kidney injury): Code(s): N17.9 - Acute kidney failure, unspecified Status: Acute Assessment and Plan: Solo has acute kidney injury. His baseline creatinine is around 2.4. He came in with a creatinine of 3.1. Today his creatinine is improved to 1.5. Renal ultrasound is negative Urine electrolytes are pre renal, not surprisingly because they were pre renal even when he had edema from his right-sided heart failure. Urine eosinophils are negative He is still not eating so will hold off on diuretics for now. Will reduce IV fluids. This can be done as an outpatient if needed. (2) Stage 3b chronic kidney disease: Code(s): N18.32 - Chronic kidney disease, stage 3b Status: Acute Assessment and Plan: The patient has chronic kidney disease. Baseline creatinine is around 2.4. This is on diuretics and when he is eating well. CKD likely from hypertension and vascular disease plus chronic pre renal azotemia from right-sided heart failure. (3) Diarrhea: Qualifiers: Diarrhea type: unspecified type Qualified Code(s): R19.7 - Diarrhea, unspecified Code(s): R19.7 - Diarrhea, unspecified Status: Acute Assessment and Plan: Improved. He is on antibiotics for his diverticulitis Seeing Dr. Olvera. (4) Right-sided heart failure: Code(s): I50.810 - Right heart failure, unspecified Status: Acute Assessment and Plan: This is due to sleep apnea and smoking. He is trying to fix both. (5) Chronic hyponatremia: Code(s): E87.1 - Hypo-osmolality and hyponatremia Status: Acute Assessment and Plan: Resolved (6) Benign essential hypertension: Code(s): I10 - Essential (primary) hypertension Status: Chronic Assessment and Plan: His blood pressure is well controlled. On diltiazem only, mostly for rate control. (7) Hyperlipidemia: Code(s): E78.5 - Hyperlipidemia, unspecified Status: Acute Assessment and Plan: He gets atorvastatin for this. (8) Prediabetes: Code(s): R73.03 - Prediabetes Status: Acute Assessment and Plan: He is trying to avoid sugar in his diet (9) Tobacco dependence: Code(s): F17.200 - Nicotine dependence, unspecified, uncomplicated Status: Chronic Assessment and Plan: Trying to cut back on cigarettes (10) Alcohol abuse: Code(s): F10.10 - Alcohol abuse, uncomplicated Status: Chronic Assessment and Plan: Formerly a heavy alcohol user (11) Obstructive sleep apnea: Code(s): G47.33 - Obstructive sleep apnea (adult) (pediatric) Status: Acute Assessment and Plan: He is getting scheduled for a sleep study Subjective Date/time seen: 10/06/20 09:00 Interval history: He has some diarrhea still. Usually related with flatus this is better than before he came in. Eating a little bit. He has a sandwich last night. Review of Systems Cardiovascular: Cardiovascular: Reports no additional cardiovascular complaints Respiratory: Respiratory: Reports no additional respiratory complaints Gastrointestinal: Gastrointestinal: Reports no additional gastrointestinal complaints Genitourinary: Genitourinary: Reports no additional male genitourinary complaints Exam Narrative: Exam Narrative: WDWN in NAD skin no rash head ncat lungs clear cor reg no rub abd BS+ nontender and soft ext no edema. Objective Data Vital Signs Vital Signs: Vital Signs - 24 hr 10/05/20 10:00 10/05/20 12:00 10/05/20 14:00 Temperature 36.2 C L 36.1 C L Pulse Rate 79 79 84 Pulse Rate [Monitor] Respiratory Rate 22 H 20 Blood Pressure 97/46 L 114/64 Pulse Oximetry 91 95 10/05/20 16:08 10/05/20 22:00 10/06/20 06:00 Temperature 36.2 C L 36.1 C L Pulse Rate 80 83 Pulse Rate [Monitor] 80 Respiratory Rate 18 18 Blood Pressure 1
--- NOTE | 2020-10-06 09:45 | PM.IMPN ---
Progress Note: A&P Assessment and Plan (1) Acute renal failure superimposed on stage 3a chronic kidney disease: Qualifiers: Acute renal failure type: unspecified Qualified Code(s): N17.9 - Acute kidney failure, unspecified; N18.31 - Chronic kidney disease, stage 3a Code(s): N17.9 - Acute kidney failure, unspecified; N18.31 - Chronic kidney disease, stage 3a Status: Acute Assessment and Plan: Creatinine 3.1 on admission with a BUN of 120. Urine sodium less than 5. Was felt acute kidney injury related to dehydration from diarrhea and poor oral intake. With IV fluids, BUN 82 creatinine 1.5 today. Nephrology following. Appreciate their input. Renal ultrasound normal. Consider stopping IV fluids given his history of CHF. (2) Hypokalemia: Code(s): E87.6 - Hypokalemia Status: Acute Assessment and Plan: Potassium is 3.0 on admission. He is on daily supplements of potassium. Potassium 3.4 today. Continue to follow. (3) Chronic hyponatremia: Code(s): E87.1 - Hypo-osmolality and hyponatremia Status: Acute Assessment and Plan: Sodium 121 on admission. Cortisol level was high. Urine sodium was less than 5. [place] related to dehydration. With IV fluids sodium has trended upward slowly to 137 today. Oral intake slowly improving. Per nursing staff, patient has phobia with eating for fear that his diarrhea may worsen. Continue to encourage oral intake. (4) Atrial flutter: Qualifiers: Atrial flutter type: unspecified Qualified Code(s): I48.92 - Unspecified atrial flutter Code(s): I48.92 - Unspecified atrial flutter Status: Acute Assessment and Plan: AFib with RVR treated with Cardizem drip. Patient converted to normal sinus rhythm. Echocardiogram dated August showing EF of 60 65% and severe pulmonary hypertension and moderate aortic stenosis. TSH normal. [id number] 3. Stol guaiac positive. Cardiology consulted and appreciate their input. Switched to oral Cardizem. (5) COPD (chronic obstructive pulmonary disease): Code(s): J44.9 - Chronic obstructive pulmonary disease, unspecified Status: Chronic Assessment and Plan: Patient wheezing. Nebulizer treatments as needed. Will give him a treatment today. Will check chest x-ray exclude pulmonary edema. (6) Diverticulitis large intestine: Code(s): K57.32 - Diverticulitis of large intestine without perforation or abscess without bleeding Status: Acute Assessment and Plan: No pain on exam. WBC better. Diarrhea improved overall. Stool studies pending. Continue IV abx. Appreciate GI input. (7) Physical deconditioning: Code(s): R53.81 - Other malaise Status: Acute Assessment and Plan: Pateitn remains very weak. COntinue to encourage ral intake. Continue supplements. PT and OT following. Increase acitivty . Remove Workman (8) Protein-calorie malnutrition, severe: Code(s): E43 - Unspecified severe protein-calorie malnutrition Status: Acute Assessment and Plan: Continue to encourage oral intake. Continue supplements. Dietary following. (9) Chronic anemia: Code(s): D64.9 - Anemia, unspecified Status: Acute Assessment and Plan: Most likely anemia of chronic disease complicated by acute blood loss anemia from diverticulitis. Hemoglobin trending downward into the IV fluids. Patient is guaiac positive. Patient has had recent endoscopy; patient has colonoscopy in the past shows hemorrhoid and diverticulosis. Iron studies showing normal ferritin and elevated iron level of 115. Tsat 48%. Will hold oral iron for now. Transfuse if hemoglobin below 7. GI following. (10) Chronic alcoholism: Code(s): F10.20 - Alcohol dependence, uncomplicated Status: Acute Assessment and Plan: Patient was educated about the benefits of alcohol cessation. Asiya
[2020-10-06] MEDS: POTASSIUM/PHOSPHORUS/SODIUM 1.5 GM PACKET 1 PACKET PO (10:42)
[2020-10-06] MEDS: ACETAMINOPHEN 325 MG TABLET 650 MG PO (10:46)
--- NOTE | 2020-10-06 11:24 | PCNFU ---
Nutrition Follow-Up Complete: Inadequate oral intake related to poor appetite as evidenced by patient statements and documented weight loss. Goal: Patient to consume 50% of meals/supplements or greater. Limited progress towards goal. We will continue current goal. Pt current nutrition is Heart Healthy with Ensure Compact TID. Last recorded weight is 117.2 kg, up from 112.4 kg on admit. Bowel Motility:+BM reported 10/03 Labs Reviewed:GFR 47,BUN 82,Cr 1.5,Alb 3.0, Hct 24.7,Hgb 7.7 Meds Noted:Ultram,Flagyl,Protonix,Thiamine,NS, Folic Acid,Rocephin,Cardizem,Aspirin. Additional Notes:Patient seen today for nutrition follow up. He has been refusing meals due that fact he does not want to have diarrhea. I was told he did have a turkey sandwich last night. He has 3 Ensure compact supplements on his table, 2 of them are 1/2 drank. Encouraged PO intake with patient today. Agree with diet orders. Monitoring: Follow up in 3 days.
[2020-10-06 11:59] LABS: Glucose Point of Care 102 mg/dl (65-105)
--- NOTE | 2020-10-06 12:21 | PM.PNCARD ---
Progress Note: A&P Assessment and Plan (1) Supraventricular arrhythmia: Code(s): I49.9 - Cardiac arrhythmia, unspecified <BELL Barragan - Last Filed: 10/06/20 14:49> Status: Acute <BELL Barragan - Last Filed: 10/06/20 14:49> Assessment and Plan: 64-year-old male with multiple medical problems-CAD status post PCI/drug-eluting stenting using 2.5 x 20 mm everolimus eluting stent on proximal LAD in the setting of VFib/TDP arrest on November 26 2013; PAF, severe pulmonary hypertension, CKD, COPD. Patient admitted to the hospital with generalized weakness, myalgias, fall, diarrhea. He was found to be in tachycardia, sinus tachycardia versus atrial flutter. Was initially treated with IV diltiazem. Tachycardia happened in the setting of hypoxemia, alcohol abuse with possible withdrawal, generalized debility/physical deconditioning. -On diltiazem CD 120 mg daily. Heart rate within normal limits. Telemetry discontinued on transfer to floor, rhythm regular on exam. -Patient's recent echocardiogram reported to show moderate . Clinical and echocardiographic surveillance as an outpatient. <BELL Barragan - Last Filed: 10/06/20 14:49> (2) Coronary artery disease: Qualifiers: Associated angina: without angina Coronary Disease-Associated Artery/Lesion type: [place] artery [place] vs. transplanted heart: [place] heart Qualified Code(s): I25.10 - Atherosclerotic heart disease of [place] coronary artery without angina pectoris <BELL Barragan - Last Filed: 10/06/20 14:49> Code(s): I25.10 - Atherosclerotic heart disease of [place] coronary artery without angina pectoris <BELL Barragan - Last Filed: 10/06/20 14:49> Status: Chronic <BELL Barragan - Last Filed: 10/06/20 14:49> Assessment and Plan: Continue aspirin, statin. Monitor H&H. <BELL Barragan - Last Filed: 10/06/20 14:49> (3) Alcohol abuse: Code(s): F10.10 - Alcohol abuse, uncomplicated <BELL Barragan - Last Filed: 10/06/20 14:49> Status: Chronic <BELL Barragan - Last Filed: 10/06/20 14:49> Assessment and Plan: Patient has history of heavy alcohol abuse. Monitor for delirium tremens. DT prophylaxis as per primary team. <BELL Barragan - Last Filed: 10/06/20 14:49> (4) Tobacco dependence: Code(s): F17.200 - Nicotine dependence, unspecified, uncomplicated <BELL Barragan - Last Filed: 10/06/20 14:49> Status: Chronic <BELL Barragan - Last Filed: 10/06/20 14:49> Assessment and Plan: Counseling performed <BELL Barragan - Last Filed: 10/06/20 14:49> (5) Acute renal failure superimposed on stage 3a chronic kidney disease: Qualifiers: Acute renal failure type: unspecified Qualified Code(s): N17.9 - Acute kidney failure, unspecified; N18.31 - Chronic kidney disease, stage 3a <BELL Barragan - Last Filed: 10/06/20 14:49> Code(s): N17.9 - Acute kidney failure, unspecified; N18.31 - Chronic kidney disease, stage 3a <BELL Barragan - Last Filed: 10/06/20 14:49> Status: Acute <BELL Barragan - Last Filed: 10/06/20 14:49> Assessment and Plan: Management as per primary team <BELL Barragan - Last Filed: 10/06/20 14:49> (6) Physical deconditioning: Code(s): R53.81 - Other malaise <BELL Barragan - Last Filed: 10/06/20 14:49> Status: Acute <BELL Barragan - Last Filed: 10/06/20 14:49> Assessment and Plan: May consider inpatient rehab <BELL Barragan - Last Filed: 10/06/20 14:49> (7) COPD (chronic obstructive pulmonary disease): Code(s): J44.9 - Chronic obstructive pulmonary disease, unspecified <BELL Barragan - Last Filed: 10/06/20 14:49> Status: Chronic <BELL Barragan - Last F
--- NOTE | 2020-10-06 16:29 | WPDGIPROGNO ---
Progress Note: A&P Assessment and Plan (1) Diverticulitis large intestine: Code(s): K57.32 - Diverticulitis of large intestine without perforation or abscess without bleeding Status: Acute Assessment and Plan: continue iv antibiotics, diarrhea better probably can switch to oral antibiotics in 1-2 days (2) Occult blood in stools: Code(s): R19.5 - Other fecal abnormalities Status: Acute Assessment and Plan: probably multifactorial but mostly from diverticulitis no need to repeat scopes unless obvious overt gib (3) Diarrhea: Qualifiers: Diarrhea type: unspecified type Qualified Code(s): R19.7 - Diarrhea, unspecified Code(s): R19.7 - Diarrhea, unspecified Status: Acute Assessment and Plan: improved, on iv antibiotics because diverticulitis (4) Supraventricular arrhythmia: Code(s): I49.9 - Cardiac arrhythmia, unspecified Status: Acute Assessment and Plan: by cardiology, on oral med (5) Stage 3b chronic kidney disease: Code(s): N18.32 - Chronic kidney disease, stage 3b Status: Acute (6) Chronic alcoholism: Code(s): F10.20 - Alcohol dependence, uncomplicated Status: Acute (7) Chronic anemia: Code(s): D64.9 - Anemia, unspecified Status: Acute Assessment and Plan: low but stable Subjective Date/time seen: 10/06/20 16:29 Interval history: no major changes, denies abdominal pain, he is eating more and less diarrhea Review of Systems Review of Systems: All systems reviewed & are unremarkable except as noted in HPI and below Exam Const: General: comfortable and no acute distress HENMT: General nose exam: Normal nares present Eyes: General: appearance normal, both eyes and all related structures Neck: Neck: supple Resp: Auscultation: clear to auscultation bilaterally Cardio: Rate: regular rate GI: Inspection: non-distended GI Palp: Yes Soft to palpation and No Tenderness to palpation present (GI) Auscultation: normal bowel sounds Other: umbilical hernia, no pain, reducible Skin: Other: chronic venous stasis legs Neuro: Speech: normal speech Motor exam (neuro): Normal motor muscle tone present throughout Extrem: Other: trace edema legs Psych: Mental Status: mental status grossly normal Objective Data Vital Signs Vital Signs: Vital Signs - 24 hr 10/05/20 22:00 10/06/20 06:00 10/06/20 08:30 Temperature 97.1 F L 97.0 F L 97.0 F L Pulse Rate 80 83 81 Pulse Rate [Monitor] Respiratory Rate 18 18 18 Blood Pressure 114/55 L 109/44 L 110/60 Pulse Oximetry 96 97 100 10/06/20 08:45 10/06/20 14:00 Temperature 96.5 F L Pulse Rate 80 Pulse Rate [Monitor] 78 Respiratory Rate 18 Blood Pressure 113/69 Pulse Oximetry 100 Intake/Output Intake/Output: Intake & Output 10/03/20 10/04/20 10/05/20 10/06/20 23:59 23:59 23:59 23:59 Intake Total 3400 3220 600 1900 Output Total 1400 1950 1350 950 Balance 2000 1270 -750 950 Meds/Results Medications: Active Medications Generic Name Dose Route Start Last Admin Trade Name Freq PRN Reason Stop Dose Admin Acetaminophen 650 mg 10/06/20 10:16 10/06/20 10:46 Acetaminophen 325 Mg Tablet PO 650 mg Q6H PRN Administration Mild Pain (1-3) or Fever Albuterol 2.5 mg 10/02/20 21:28 Albuterol Sulfate Neb 2.5 Mg/3 Ml Inh INHALATION Q4H PRN Shortness Of Breath Aspirin 81 mg 10/03/20 09:00 10/06/20 08:41 Aspirin 81 Mg Enteric Tablet PO 81 mg DAILY PAULINA Administration Atorvastatin Calcium 80 mg 10/03/20 09:00 10/06/20 08:41 Atorvastatin 40 Mg Tablet PO 80 mg DAILY PAULINA Administration Chlordiazepoxide HCl 25 mg 10/03/20 13:21 Chlordiazepoxide (*Crx) 25 Mg Capsule PO Q6H PRN Withdrawal Dextrose 12.5 gm 10/05/20 14:50 Dextrose 50% 25 Gm/50 Ml Syringe IV PUSH PRN PRN Hypoglycemia Protocol Diltiazem HCl 120 mg 10/06/20 09:00 06
[2020-10-06 18:41] LABS: Glucose Point of Care 150 mg/dl (65-105)
[2020-10-06 23:26] LABS: Glucose Point of Care 114 mg/dl (65-105)
[2020-10-07] VITALS (14 sets, daily range): BP systolic 100–116; BP diastolic 60–68; PULSE 81–122; RESP 16–20; TEMP 36.1–36.6; O2SAT 92–96
[2020-10-07 05:03] LABS: Osmolality, Urine 334 mOsm/kg (50-1200)
[2020-10-07] MEDS: ALBUTEROL SULFATE NEB 2.5 MG/3 ML INH INHALATION (05:15)
[2020-10-07 05:46] LABS: Hematocrit 24.5 % (42.0-52.0); Hemoglobin 7.6 g/dL (14.0-18.0); Mean Corpuscular Hemoglobin 27.3 pg (26-34); Mean Corpuscular Volume 88.1 fl (80-100); Mean Platelet Volume 9.5 fl (7.4-10.4); Platelet Count Result 242 k/mm3 (150-375); Red Blood Count 2.78 M/mm3 (4.6-6.20); Red Cell Distribution Width 18.6 % (11.5-14.5); White Blood Count 10.8 K/mm3 (4.5-10.0)
[2020-10-07 06:01] LABS: Anion Gap 6 mmol/L (8-16); Blood Urea Nitrogen 66 mg/dL (9-20); Calcium 8.5 mg/dL (8.4-10.2); Carbon Dioxide 31 mmol/L (22-30); Chloride 102 mmol/L (98-107); Estimated CRCL calculation 75 ml/min; Estimated Glomerular Filt Rate > 60; Glucose 97 mg/dL (75-110); Magnesium 1.6 mg/dL (1.6-2.3); Phosphorus 1.8 mg/dL (2.5-4.5); Potassium 3.4 mmol/L (3.4-5.0); Sodium 139 mmol/L (137-145)
--- NOTE | 2020-10-07 06:04 | PCRCNOTE ---
Due to only 2 therapists on shift last night (10/06/20) the apnea link was not accomplished. Both therapists were busy till after midnight, at which it would have been too late to apply to patient. [facility]
[2020-10-07] MEDS: metroNIDAZOLE 500 MG/ISO 100ML 500 MG/100 ML BAG 100 MG IVPB ×3 (06:23→20:58)
[2020-10-07 07:49] LABS: Glucose Point of Care 97 mg/dl (65-105)
--- NOTE | 2020-10-07 07:56 | PM.PNNEP ---
Progress Note: A&P Assessment and Plan (1) CHRISTOPHER (acute kidney injury): Code(s): N17.9 - Acute kidney failure, unspecified Status: Acute Assessment and Plan: Solo has acute kidney injury. His baseline creatinine is around 2.4. He came in with a creatinine of 3.1. Today his creatinine is improved to 1.2. Renal ultrasound is negative Urine electrolytes are pre renal, not surprisingly because they were pre renal even when he had edema from his right-sided heart failure. Urine eosinophils are negative He started eating last night. Will stop IV fluids. Put him on a low dose of diuretics. (2) Stage 3b chronic kidney disease: Code(s): N18.32 - Chronic kidney disease, stage 3b Status: Acute Assessment and Plan: The patient has chronic kidney disease. Baseline creatinine is around 2.4. This is on diuretics and when he is eating well. CKD likely from hypertension and vascular disease plus chronic pre renal azotemia from right-sided heart failure. (3) Diarrhea: Qualifiers: Diarrhea type: unspecified type Qualified Code(s): R19.7 - Diarrhea, unspecified Code(s): R19.7 - Diarrhea, unspecified Status: Acute Assessment and Plan: Improved. Seeing Dr. Olvera. (4) Right-sided heart failure: Code(s): I50.810 - Right heart failure, unspecified Status: Acute Assessment and Plan: This is due to sleep apnea and smoking. He is trying to fix both. (5) Chronic hyponatremia: Code(s): E87.1 - Hypo-osmolality and hyponatremia Status: Acute Assessment and Plan: Resolved (6) Benign essential hypertension: Code(s): I10 - Essential (primary) hypertension Status: Chronic Assessment and Plan: His blood pressure is well controlled. On diltiazem only, mostly for rate control. (7) Hyperlipidemia: Code(s): E78.5 - Hyperlipidemia, unspecified Status: Acute Assessment and Plan: He gets atorvastatin for this. (8) Prediabetes: Code(s): R73.03 - Prediabetes Status: Acute Assessment and Plan: He is trying to avoid sugar in his diet (9) Tobacco dependence: Code(s): F17.200 - Nicotine dependence, unspecified, uncomplicated Status: Chronic Assessment and Plan: Trying to cut back on cigarettes (10) Alcohol abuse: Code(s): F10.10 - Alcohol abuse, uncomplicated Status: Chronic Assessment and Plan: Formerly a heavy alcohol user (11) Obstructive sleep apnea: Code(s): G47.33 - Obstructive sleep apnea (adult) (pediatric) Status: Acute Assessment and Plan: He is getting scheduled for a sleep study Subjective Date/time seen: 10/07/20 07:56 Interval history: Diarrhea is better. Eating is better. He had an episode of shortness of breath last night relieved by a nebulizer. Exam Narrative: Exam Narrative: WDWN in NAD skin no rash head ncat lungs clear bilaterally cor reg no rub abd BS+ nontender and soft ext no edema still. Objective Data Vital Signs Vital Signs: Vital Signs - 24 hr 10/06/20 08:30 10/06/20 08:45 10/06/20 14:00 Temperature 36.1 C L 35.8 C L Pulse Rate 81 80 Pulse Rate [Monitor] 78 Respiratory Rate 18 18 Blood Pressure 110/60 113/69 Pulse Oximetry 100 100 10/06/20 16:00 10/06/20 20:00 10/06/20 22:00 Temperature 36.7 C Pulse Rate 78 79 78 Pulse Rate [Monitor] Respiratory Rate 20 Blood Pressure 113/71 Pulse Oximetry 98 10/07/20 00:00 10/07/20 04:00 10/07/20 05:18 Temperature Pulse Rate 82 81 84 Pulse Rate [Monitor] Respiratory Rate 18 Blood Pressure Pulse Oximetry 10/07/20 05:25 10/07/20 06:00 Temperature 36.2 C L Pulse Rate 88 86 Pulse Rate [Monitor] Respiratory Rate 18 16 Blood Pressure 116/68 Pulse Oximetry 93 Intake/Output Intake/Output: Intake & Output 10/04/20 10/05/20 10/06/20 10/07/20 2
[2020-10-07] MEDS: ASPIRIN 81 MG ENTERIC TABLET PO (08:06)
[2020-10-07] MEDS: ATORVASTATIN 40 MG TABLET 80 MG PO (08:07)
[2020-10-07] MEDS: THIAMINE HCL 200 MG/2 ML VIAL 100 MG IV PUSH (08:07)
[2020-10-07] MEDS: POTASSIUM CHLORIDE 20 MEQ TABLET.ER PO (08:07)
[2020-10-07] MEDS: PANTOPRAZOLE 40 MG TABLET PO (08:07)
[2020-10-07] MEDS: FOLIC ACID 1 MG TABLET PO (08:07)
[2020-10-07] MEDS: POTASSIUM/PHOSPHORUS/SODIUM 1.5 GM PACKET 1 PACKET PO (08:08)
[2020-10-07] MEDS: BUMETANIDE 1 MG TABLET PO (08:22)
--- NOTE | 2020-10-07 10:12 | PM.IMPN ---
Progress Note: A&P Assessment and Plan (1) Acute renal failure superimposed on stage 3a chronic kidney disease: Qualifiers: Acute renal failure type: unspecified Qualified Code(s): N17.9 - Acute kidney failure, unspecified; N18.31 - Chronic kidney disease, stage 3a Code(s): N17.9 - Acute kidney failure, unspecified; N18.31 - Chronic kidney disease, stage 3a Status: Acute Assessment and Plan: Creatinine 3.1 on admission with a BUN of 120. Urine sodium less than 5. Was felt acute kidney injury related to dehydration from diarrhea and poor oral intake. With IV fluids, BUN 66 creatinine 1.2 today. Renal ultrasound normal. Nephrology following. Appreciate their input. IV fluids stopped. Follow off IV fluids. (2) Hypokalemia: Code(s): E87.6 - Hypokalemia Status: Acute Assessment and Plan: Potassium is 3.0 on admission. He is on daily supplements of potassium. Potassium 3.4 today and stable. Continue to follow. (3) Chronic hyponatremia: Code(s): E87.1 - Hypo-osmolality and hyponatremia Status: Acute Assessment and Plan: Sodium 121 on admission. Cortisol level was high. Urine sodium was less than 5. [place] related to dehydration. With IV fluids, sodium has trended upward slowly to 139 today. Oral intake still poor. Per nursing staff, patient has phobia with eating for fear that his diarrhea may worsen. Continue to encourage oral intake. (4) Atrial flutter: Qualifiers: Atrial flutter type: unspecified Qualified Code(s): I48.92 - Unspecified atrial flutter Code(s): I48.92 - Unspecified atrial flutter Status: Acute Assessment and Plan: AFib with RVR treated with Cardizem drip. Patient converted to normal sinus rhythm. Echo dated August 2020 showing EF of 60 65% and severe pulmonary hypertension and moderate aortic stenosis. TSH normal. [id number] 3. Stool guaiac positive. Cardiology consulted and appreciate their input. Continue oral Cardizem. (5) COPD (chronic obstructive pulmonary disease): Code(s): J44.9 - Chronic obstructive pulmonary disease, unspecified Status: Chronic Assessment and Plan: Patient not wheezing this morning but did require a neb treatment. Nebulizer treatments are currently as needed. CXR this morning showing unchanged chronic scarring RLL. Will continue the same for now. Hold of on scheduling due to his hx of AFib. He does take Synbicort at home but not on his home med list. Balbir resume (6) Diverticulitis large intestine: Code(s): K57.32 - Diverticulitis of large intestine without perforation or abscess without bleeding Status: Acute Assessment and Plan: No pain on exam. WBC trending down. Diarrhea improved overall. Stool studies pending. Continue IV abx. Appreciate GI input. (7) Physical deconditioning: Code(s): R53.81 - Other malaise Status: Acute Assessment and Plan: Patient remains very weak. Continue to encourage oral intake. Continue supplements. PT and OT following. Increase activity. SNF being recommended. (8) Protein-calorie malnutrition, severe: Code(s): E43 - Unspecified severe protein-calorie malnutrition Status: Acute Assessment and Plan: Patient not eating much. Continue to encourage oral intake. Continue supplements. Dietary following. (9) Chronic anemia: Code(s): D64.9 - Anemia, unspecified Status: Acute Assessment and Plan: Most likely anemia of chronic disease complicated by acute blood loss anemia from diverticulitis. Hemoglobin trending downward due to the IV fluids as well. Patient is guaiac positive. Patient has had colonoscopy in Jun 2019 showing multiple polys s/p polypectomy and inernal hemorrhoids; EGD at that time showing gastritis with gastric polyp s/p excision. Iron studies showing normal ferritin and elevated iron level of 115. T
--- NOTE | 2020-10-07 10:55 | PM.PNCARD ---
Progress Note: A&P Assessment and Plan (1) Supraventricular arrhythmia: Code(s): I49.9 - Cardiac arrhythmia, unspecified Status: Acute Assessment and Plan: 64-year-old male with multiple medical problems-CAD status post PCI/drug-eluting stenting using 2.5 x 20 mm everolimus eluting stent on proximal LAD in the setting of VFib/TDP arrest on November 26 2013; PAF, severe pulmonary hypertension, CKD, COPD. Patient admitted to the hospital with generalized weakness, myalgias, fall, diarrhea. He was found to be in tachycardia, sinus tachycardia versus atrial flutter. Was initially treated with IV diltiazem. Tachycardia happened in the setting of hypoxemia, alcohol abuse with possible withdrawal, generalized debility/physical deconditioning. -On diltiazem CD 120 mg daily. Heart rate within normal limits. Telemetry discontinued on transfer to floor, rhythm regular on exam. -Patient's recent echocardiogram reported to show moderate . Clinical and echocardiographic surveillance as an outpatient. Follow-up with Dr. GUTIERREZ as an outpatient (2) Coronary artery disease: Qualifiers: Coronary Disease-Associated Artery/Lesion type: [place] artery [place] vs. transplanted heart: [place] heart Associated angina: without angina Qualified Code(s): I25.10 - Atherosclerotic heart disease of [place] coronary artery without angina pectoris Code(s): I25.10 - Atherosclerotic heart disease of [place] coronary artery without angina pectoris Status: Chronic Assessment and Plan: Continue aspirin, statin. Monitor H&H. (3) Alcohol abuse: Code(s): F10.10 - Alcohol abuse, uncomplicated Status: Chronic Assessment and Plan: Patient has history of heavy alcohol abuse. Monitor for delirium tremens. DT prophylaxis as per primary team. (4) Tobacco dependence: Code(s): F17.200 - Nicotine dependence, unspecified, uncomplicated Status: Chronic Assessment and Plan: Counseling performed (5) Acute renal failure superimposed on stage 3a chronic kidney disease: Qualifiers: Acute renal failure type: unspecified Qualified Code(s): N17.9 - Acute kidney failure, unspecified; N18.31 - Chronic kidney disease, stage 3a Code(s): N17.9 - Acute kidney failure, unspecified; N18.31 - Chronic kidney disease, stage 3a Status: Acute Assessment and Plan: Management as per primary team (6) Physical deconditioning: Code(s): R53.81 - Other malaise Status: Acute Assessment and Plan: May consider inpatient rehab (7) COPD (chronic obstructive pulmonary disease): Code(s): J44.9 - Chronic obstructive pulmonary disease, unspecified Status: Chronic Assessment and Plan: Management as per primary team (8) Pulmonary hypertension: Code(s): I27.20 - Pulmonary hypertension, unspecified Status: Acute Assessment and Plan: Pulmonary hypertension likely secondary to underlying intrinsic lung disease/COPD. Smoking cessation, supplemental oxygen as needed. Extra Bumex 1 mg p.o. x1 Subjective Date/time seen: 10/07/20 10:55 Interval history: 64yo male with CKD , pAFib, CHF, pulmonary HTN, untreated OLIVE and COPD here for diarrhea and weakness and found to have CHRISTOPHER and diverticulitis. Date of service 10/07/2020: He was little short of breath this morning. No syncope, chest pain Review of Systems Review of Systems: All systems reviewed & are unremarkable except as noted in HPI and below Constitutional: Constitutional: Denies anorexia Eyes: Eyes: Denies blurry vision ENT: Reports Normal hearing present Cardiovascular: Cardiovascular: Denies chest pain, Denies pedal edema, Denies leg edema, Denies palpitations, Reports dyspnea and Reports dyspnea on exertion Respiratory: Respiratory: Reports cough, Reports dyspnea and Reports dyspnea on exertion Gastrointestinal: Gastrointestinal: Reports diarrhea Integumenta
[2020-10-07] MEDS: EUCERIN CREAM 120 GM JAR 1 APPLIC TOPICAL (11:16)
[2020-10-07] MEDS: BUMETANIDE INJ 1 MG/4 ML VIAL IV PUSH (11:33)
[2020-10-07 13:02] LABS: Glucose Point of Care 114 mg/dl (65-105)
[2020-10-07 18:01] LABS: Glucose Point of Care 92 mg/dl (65-105)
[2020-10-07] MEDS: ACETAMINOPHEN 325 MG TABLET 650 MG PO (18:37)
[2020-10-07 21:29] LABS: Glucose Point of Care 101 mg/dl (65-105)
[2020-10-08] VITALS (13 sets, daily range): BP systolic 97–104; BP diastolic 48–65; PULSE 82–94; RESP 16–20; TEMP 36.1–36.6; O2SAT 93–98
[2020-10-08] MEDS: metroNIDAZOLE 500 MG/ISO 100ML 500 MG/100 ML BAG 100 MG IVPB ×3 (05:19→21:28)
[2020-10-08] MEDS: ALBUTEROL SULFATE NEB 2.5 MG/3 ML INH INHALATION (05:34)
[2020-10-08 06:10] LABS: Hematocrit 23.2 % (42.0-52.0); Hemoglobin 7.6 g/dL (14.0-18.0); Mean Corpuscular HGB Conc 32.8 g/dl (32-36); Mean Corpuscular Hemoglobin 28.3 pg (26-34); Mean Corpuscular Volume 86.2 fl (80-100); Mean Platelet Volume 9.5 fl (7.4-10.4); Platelet Count Result 214 k/mm3 (150-375); Red Blood Count 2.69 M/mm3 (4.6-6.20); Red Cell Distribution Width 18.7 % (11.5-14.5); White Blood Count 12.4 K/mm3 (4.5-10.0)
[2020-10-08 06:27] LABS: Anion Gap 7 mmol/L (8-16); Blood Urea Nitrogen 51 mg/dL (9-20); Calcium 8.5 mg/dL (8.4-10.2); Carbon Dioxide 30 mmol/L (22-30); Chloride 102 mmol/L (98-107); Estimated CRCL calculation 75 ml/min; Estimated Glomerular Filt Rate > 60; Glucose 100 mg/dL (75-110); Magnesium 1.2 mg/dL (1.6-2.3); Phosphorus 2.2 mg/dL (2.5-4.5); Potassium 3.3 mmol/L (3.4-5.0); Sodium 139 mmol/L (137-145)
[2020-10-08 07:23] LABS: Glucose Point of Care 115 mg/dl (65-105)
[2020-10-08] MEDS: ASPIRIN 81 MG ENTERIC TABLET PO (09:52)
[2020-10-08] MEDS: PANTOPRAZOLE 40 MG TABLET PO (09:52)
[2020-10-08] MEDS: POTASSIUM CHLORIDE 20 MEQ TABLET PO (09:52)
[2020-10-08] MEDS: BUMETANIDE 1 MG TABLET PO (09:52)
[2020-10-08] MEDS: ATORVASTATIN 40 MG TABLET 80 MG PO (09:52)
[2020-10-08] MEDS: POTASSIUM CHLORIDE 20 MEQ TABLET.ER PO (09:53)
[2020-10-08] MEDS: EUCERIN CREAM 120 GM JAR 1 APPLIC TOPICAL (09:53)
[2020-10-08] MEDS: POTASSIUM/PHOSPHORUS/SODIUM 1.5 GM PACKET 1 PACKET PO (09:53)
[2020-10-08] MEDS: MAGNESIUM SULF 2 GM/WATER 50ML 2 GM/50 ML BAG IVPB ×2 (09:53→16:30)
[2020-10-08] MEDS: FOLIC ACID 1 MG TABLET PO (09:53)
[2020-10-08] MEDS: THIAMINE HCL 200 MG/2 ML VIAL 100 MG IV PUSH (09:54)
--- NOTE | 2020-10-08 10:29 | PM.PNNEP ---
Progress Note: A&P Assessment and Plan (1) CHRISTOPHER (acute kidney injury): Code(s): N17.9 - Acute kidney failure, unspecified Status: Acute Assessment and Plan: resolved creatinine currently better than baseline at this time due to prerenal factors (diarrhea) and likely overdiuresis s/p IVF resuscitation resume home diuretic therapy (he will need this for his chronic heart failure) (2) Stage 3b chronic kidney disease: Code(s): N18.32 - Chronic kidney disease, stage 3b Status: Chronic Assessment and Plan: due to hypertension, vascular disease, and chronic pre-renal azotemia from right sided heart failure worsned by need for diuretic therapy baseline creatinine runs ~ 2.4mg/dl diuretics resumed (3) Diarrhea: Qualifiers: Diarrhea type: unspecified type Qualified Code(s): R19.7 - Diarrhea, unspecified Code(s): R19.7 - Diarrhea, unspecified Status: Acute Assessment and Plan: clinically better Gastroenterology following (4) Right-sided heart failure: Code(s): I50.810 - Right heart failure, unspecified Status: Chronic Assessment and Plan: secondary to his OLIVE and smoking/lung disease continue current management/therapy (5) Benign essential hypertension: Code(s): I10 - Essential (primary) hypertension Status: Chronic Assessment and Plan: reasonably controlled at this time follow trend of hemodynamics (6) Obstructive sleep apnea: Code(s): G47.33 - Obstructive sleep apnea (adult) (pediatric) Status: Acute Assessment and Plan: needs ongoing treatment for this to help with heart failure issues Will continue to follow. Subjective Date/time seen: 10/08/20 10:29 Only real complaint on my visit is on/off right hip pain but able to ambulate without difficulty; no other acute complaints voiced; no events/issues overnight or earlier this AM. Exam Narrative: Exam Narrative: General: WD/WN male in NAD Heart: normal S1 and S2; no rub Lungs: clear to auscultation Abdomen: soft, nontender, nondistended, positive bowel sounds Extremities: no cyanosis or clubbing; no edema Skin: warm and dry Objective Data Vital Signs Vital Signs: Vital Signs Temp Pulse Resp BP Pulse Ox 10/08/20 10:08 94 10/08/20 05:40 85 16 10/08/20 05:33 92 16 10/08/20 04:52 36.1 C L 86 20 104/65 93 10/08/20 04:00 84 10/08/20 00:00 86 10/07/20 20:44 36.1 C L 86 20 106/61 96 10/07/20 20:00 85 20 96 10/07/20 18:37 36.6 C 10/07/20 16:00 90 10/07/20 14:00 36.6 C 107 H 18 100/60 93 10/07/20 12:00 92 Intake/Output Intake/Output: Intake & Output 10/05/20 10/06/20 10/07/20 10/08/20 23:59 23:59 23:59 23:59 Intake Total 600 3550 2740 490 Output Total 1350 1750 1690 1000 Balance -750 1800 1050 -510 Meds/Results Medications: Active Medications Generic Name Dose Route Start Last Admin Trade Name Freq PRN Reason Stop Dose Admin Acetaminophen 650 mg 10/06/20 10:16 10/07/20 18:37 Acetaminophen 325 Mg Tablet PO 650 mg Q6H PRN Administration Mild Pain (1-3) or Fever Albuterol 2.5 mg 10/02/20 21:28 10/08/20 05:34 Albuterol Sulfate Neb 2.5 Mg/3 Ml Inh INHALATION 2.5 mg Q4H PRN Administration Shortness Of Breath Aspirin 81 mg 10/03/20 09:00 10/08/20 09:52 Aspirin 81 Mg Enteric Tablet PO 81 mg DAILY PAULINA Administration Atorvastatin Calcium 80 mg 10/03/20 09:00 10/08/20 09:52 Atorvastatin 40 Mg Tablet PO 80 mg DAILY PAULINA Administration Budesonide/Formoterol Fumarate 2 puff 10/07/20 10:35 10/08/20 09:53 Budesonide/Form 160-4.5 Mcg (*Sp) INHALATION 2 puff Q12HRT PAULINA Administration Bumetanide 1 mg 10/07/20 09:00 10/08/20 09:52 Bumetanide 1 Mg Tablet PO 1 mg DAILY PAULINA Administration Chlordiazepoxide HCl 25 mg 10/03/20 13:21 Chlordiazepoxide (*Crx) 25 Mg
--- NOTE | 2020-10-08 11:23 | PCNFU ---
Nutrition Follow-Up Complete: Inadequate oral intake related to poor appetite as evidenced by patient statements and documented weight loss. goal: Patient to consume 50% of meals/supplements or greater. Progressing towards goal. We will continue current goal. Pt current nutrition is Heart Healthy with Ensure compact TID. Last recorded weight is 117.5 kg,up from 112.4 kg on admit. Bowel Motility:+BM reported 6/2-no diarrhea reported. Labs Reviewed:BUN 51,Mg 1.2, HGb 7.6, Hct 23.2,Alb 3.0,K 3.3 Meds Noted:Thiamine, Folic Acid, Flagyl, Ultram, Albuterol,KCL, Protonix Additional Notes: Patient seen today for nutrition follow up. He states to refusing breakfast today. He did state to eating lunch and dinner yesterday. He plans to order lunch today. PO intake continues to be encouraged. Monitoring: Follow up in 5 days.
[2020-10-08 11:57] LABS: Glucose Point of Care 104 mg/dl (65-105)
--- NOTE | 2020-10-08 13:50 | PCPTNOTE ---
Attempted to see patient for PT this date, however patient declined, reported he wants to take a nap and he was worn out from working with OT.
--- NOTE | 2020-10-08 14:35 | WPDGIPROGNO ---
Progress Note: A&P Assessment and Plan (1) Diverticulitis large intestine: Code(s): K57.32 - Diverticulitis of large intestine without perforation or abscess without bleeding Status: Acute Assessment and Plan: diarrhea better and no abdominal pain, also tolerating diet ok to switch to oral antibiotics tomorrow for 5 more days and probably go home +/- rehab (2) Occult blood in stools: Code(s): R19.5 - Other fecal abnormalities Status: Acute Assessment and Plan: probably multifactorial but mostly from diverticulitis no need to repeat scopes unless obvious overt gib (recent colonoscopy last year) (3) Diarrhea: Qualifiers: Diarrhea type: unspecified type Qualified Code(s): R19.7 - Diarrhea, unspecified Code(s): R19.7 - Diarrhea, unspecified Status: Acute Assessment and Plan: improved (4) Supraventricular arrhythmia: Code(s): I49.9 - Cardiac arrhythmia, unspecified Status: Acute Assessment and Plan: by cardiology, on oral med (5) Stage 3b chronic kidney disease: Code(s): N18.32 - Chronic kidney disease, stage 3b Status: Acute Assessment and Plan: renal function has improved, nephrology on board (6) Chronic alcoholism: Code(s): F10.20 - Alcohol dependence, uncomplicated Status: Acute (7) Chronic anemia: Code(s): D64.9 - Anemia, unspecified Status: Acute Assessment and Plan: low but stable Subjective Date/time seen: 10/08/20 14:35 Interval history: he is doing well, no new issues Review of Systems Review of Systems: All systems reviewed & are unremarkable except as noted in HPI and below Exam Const: General: comfortable and no acute distress HENMT: General nose exam: Normal nares present Eyes: General: appearance normal, both eyes and all related structures Neck: Neck: supple Resp: Auscultation: clear to auscultation bilaterally Cardio: Rate: regular rate GI: Inspection: non-distended GI Palp: Yes Soft to palpation and No Tenderness to palpation present (GI) Auscultation: normal bowel sounds Other: umbilical hernia, no pain, reducible Skin: Other: chronic venous stasis legs Neuro: Speech: normal speech Motor exam (neuro): Normal motor muscle tone present throughout Extrem: Other: trace edema legs Psych: Mental Status: mental status grossly normal Objective Data Vital Signs Vital Signs: Vital Signs - 24 hr 10/07/20 16:00 10/07/20 18:37 10/07/20 20:00 Temperature 97.8 F Pulse Rate 90 85 Respiratory Rate 20 Blood Pressure Pulse Oximetry 96 10/07/20 20:44 10/08/20 00:00 10/08/20 04:00 Temperature 96.9 F L Pulse Rate 86 86 84 Respiratory Rate 20 Blood Pressure 106/61 Pulse Oximetry 96 10/08/20 04:52 10/08/20 05:33 10/08/20 05:40 Temperature 97 F L Pulse Rate 86 92 85 Respiratory Rate 20 16 16 Blood Pressure 104/65 Pulse Oximetry 93 10/08/20 08:00 10/08/20 10:08 10/08/20 14:00 Temperature 97.9 F Pulse Rate 82 87 Respiratory Rate 18 Blood Pressure 97/54 L Pulse Oximetry 94 98 Intake/Output Intake/Output: Intake & Output 10/05/20 10/06/20 10/07/20 10/08/20 23:59 23:59 23:59 23:59 Intake Total 600 3550 2740 780 Output Total 1350 1750 1690 1000 Balance -750 1800 1050 -220 Meds/Results Medications: Active Medications Generic Name Dose Route Start Last Admin Trade Name Freq PRN Reason Stop Dose Admin Acetaminophen 650 mg 10/06/20 10:16 10/07/20 18:37 Acetaminophen 325 Mg Tablet PO 650 mg Q6H PRN Administration Mild Pain (1-3) or Fever Albuterol 2.5 mg 10/02/20 21:28 10/08/20 05:34 Albuterol Sulfate Neb 2.5 Mg/3 Ml Inh INHALATION 2.5 mg Q4H PRN Administration Shortness Of Breath Aspirin 81 mg 10/03/20 09:00 10/08/20 09:52 Aspirin 81 Mg Enteric Tablet PO 81 mg DAILY PAULINA Administration Atorvastatin Calcium 80 mg 10/03/20 09:00
--- NOTE | 2020-10-08 14:37 | PCPTNOTE ---
Attempted a second time to see patient for PT, however patient declined.
--- NOTE | 2020-10-08 14:44 | PM.PNCARD ---
Progress Note: A&P Assessment and Plan (1) Supraventricular arrhythmia: Code(s): I49.9 - Cardiac arrhythmia, unspecified Status: Acute Assessment and Plan: 64-year-old male with multiple medical problems-CAD status post PCI/drug-eluting stenting using 2.5 x 20 mm everolimus eluting stent on proximal LAD in the setting of VFib/TDP arrest on November 26 2013; PAF, severe pulmonary hypertension, CKD, COPD. Patient admitted to the hospital with generalized weakness, myalgias, fall, diarrhea. He was found to be in tachycardia, sinus tachycardia versus atrial flutter. Was initially treated with IV diltiazem. Tachycardia happened in the setting of hypoxemia, alcohol abuse with possible withdrawal, generalized debility/physical deconditioning. -On diltiazem CD 120 mg daily. Heart rate within normal limits. On telemetry last night he did have 1 isolated run of sinus tachycardia. -Patient's recent echocardiogram reported to show moderate . Clinical and echocardiographic surveillance as an outpatient. Follow-up with Dr. GUTIERREZ as an outpatient (2) Coronary artery disease: Qualifiers: Coronary Disease-Associated Artery/Lesion type: [place] artery [place] vs. transplanted heart: [place] heart Associated angina: without angina Qualified Code(s): I25.10 - Atherosclerotic heart disease of [place] coronary artery without angina pectoris Code(s): I25.10 - Atherosclerotic heart disease of [place] coronary artery without angina pectoris Status: Chronic Assessment and Plan: Continue aspirin, statin. Monitor H&H. (3) Alcohol abuse: Code(s): F10.10 - Alcohol abuse, uncomplicated Status: Chronic Assessment and Plan: Patient has history of heavy alcohol abuse. Monitor for delirium tremens. DT prophylaxis as per primary team. (4) Tobacco dependence: Code(s): F17.200 - Nicotine dependence, unspecified, uncomplicated Status: Chronic Assessment and Plan: Counseling performed (5) Acute renal failure superimposed on stage 3a chronic kidney disease: Qualifiers: Acute renal failure type: unspecified Qualified Code(s): N17.9 - Acute kidney failure, unspecified; N18.31 - Chronic kidney disease, stage 3a Code(s): N17.9 - Acute kidney failure, unspecified; N18.31 - Chronic kidney disease, stage 3a Status: Acute Assessment and Plan: Management as per primary team (6) Physical deconditioning: Code(s): R53.81 - Other malaise Status: Acute Assessment and Plan: May consider inpatient rehab (7) COPD (chronic obstructive pulmonary disease): Code(s): J44.9 - Chronic obstructive pulmonary disease, unspecified Status: Chronic Assessment and Plan: Management as per primary team (8) Pulmonary hypertension: Code(s): I27.20 - Pulmonary hypertension, unspecified Status: Acute Assessment and Plan: Pulmonary hypertension likely secondary to underlying intrinsic lung disease/COPD. Smoking cessation, supplemental oxygen as needed. Subjective Date/time seen: 10/08/20 14:44 Interval history: Cardiology follow-up for atrial flutter, heart failure 11/04/2020: Patient is feeling well today. He states that his breathing is ?much better? since been restarted on his home COPD medications. He denies any chest pain, shortness of breath, palpitations. He does state that when he was sitting in his chair for a long period of time he thought that his feet were becoming swollen so he got back into bed and elevated his feet. Review of Systems Review of Systems: All systems reviewed & are unremarkable except as noted in HPI and below Constitutional: Constitutional: Denies anorexia and Reports weakness Eyes: Eyes: Denies blurry vision ENT: Reports Normal hearing present Cardiovascular: Cardiovascular: Denies chest pain, Reports pedal edema, Denies leg edema, Denies palpitations, Reports dyspnea an
--- NOTE | 2020-10-08 16:15 | PM.IMPN ---
Progress Note: A&P Assessment and Plan (1) Acute renal failure superimposed on stage 3a chronic kidney disease: Qualifiers: Acute renal failure type: unspecified Qualified Code(s): N17.9 - Acute kidney failure, unspecified; N18.31 - Chronic kidney disease, stage 3a Code(s): N17.9 - Acute kidney failure, unspecified; N18.31 - Chronic kidney disease, stage 3a Status: Acute Assessment and Plan: Creatinine 3.1 on admission with a BUN of 120. Urine sodium less than 5. Was felt acute kidney injury related to dehydration from diarrhea and poor oral intake. With IV fluids, BUN 51 creatinine 1.2 today. Renal ultrasound normal. Nephrology following. Appreciate their input. Bumex resumed. Contineu to follow. Expect Cr to climb back to baseline (2) Hypokalemia: Code(s): E87.6 - Hypokalemia Status: Acute Assessment and Plan: Potassium is 3.0 on admission. He is on daily supplements of potassium. Potassium 3.3 today. Replace. Continue to follow. (3) Chronic hyponatremia: Code(s): E87.1 - Hypo-osmolality and hyponatremia Status: Acute Assessment and Plan: Sodium 121 on admission. Cortisol level was high. Urine sodium was less than 5. [place] related to dehydration. With IV fluids, sodium has trended upward slowly to 139 today. Oral intake better. Continue to encourage oral intake. (4) Atrial flutter: Qualifiers: Atrial flutter type: unspecified Qualified Code(s): I48.92 - Unspecified atrial flutter Code(s): I48.92 - Unspecified atrial flutter Status: Acute Assessment and Plan: AFib with RVR treated with Cardizem drip. Patient converted to normal sinus rhythm. Echo dated August 2020 showing EF of 60 65% and severe pulmonary hypertension and moderate aortic stenosis. TSH normal. [id number] 3. Stool guaiac positive. Cardiology consulted and appreciate their input. Continue oral Cardizem. Continue ASA. (5) COPD (chronic obstructive pulmonary disease): Code(s): J44.9 - Chronic obstructive pulmonary disease, unspecified Status: Chronic Assessment and Plan: Patient with faint wheeze. Continue nebulizer treatments as needed. CXR yesterday morning showing unchanged chronic scarring RLL. Will continue the same for now. Continue Synbicort. (6) Diverticulitis large intestine: Code(s): K57.32 - Diverticulitis of large intestine without perforation or abscess without bleeding Status: Acute Assessment and Plan: CT Abd/Pelvis on admission showing acute sigmoid diverticulitis without evidence for perforation or abscess. No abd pain on exam today. WBC higher today for unclear reasons. Diarrhea improved overall. Stool studies pending. Continue IV abx. Appreciate GI input. (7) Physical deconditioning: Code(s): R53.81 - Other malaise Status: Acute Assessment and Plan: Patient remains weak but improving with therapy. Continue to encourage oral intake. Continue supplements. PT and OT following. Increase activity as tolerated. SNF being arranged. (8) Protein-calorie malnutrition, severe: Code(s): E43 - Unspecified severe protein-calorie malnutrition Status: Acute Assessment and Plan: Patient's oral intake better. Continue to encourage oral intake. Continue supplements. Dietary following. (9) Chronic anemia: Code(s): D64.9 - Anemia, unspecified Status: Acute Assessment and Plan: Most likely anemia of chronic disease complicated by acute blood loss anemia from diverticulitis. Hemoglobin low but stable at 7.6. Patient is guaiac positive. Patient has had colonoscopy in Jun 2019 showing multiple polys s/p polypectomy and internal hemorrhoids; EGD at that time showing gastritis with gastric polyp s/p excision. Iron studies showing normal ferritin and elevated iron level of 115. Tsat 48%. Will hold oral iron for now.
[2020-10-08 17:53] LABS: Glucose Point of Care 102 mg/dl (65-105)
[2020-10-08] MEDS: ACETAMINOPHEN 325 MG TABLET 650 MG PO (18:56)
[2020-10-08 21:54] LABS: Glucose Point of Care 155 mg/dl (65-105)
[2020-10-09] VITALS (10 sets, daily range): BP systolic 99–114; BP diastolic 59–71; PULSE 81–103; RESP 18–20; TEMP 36.1–36.4; O2SAT 91–100
[2020-10-09] MEDS: metroNIDAZOLE 500 MG/ISO 100ML 500 MG/100 ML BAG 100 MG IVPB ×2 (05:16→13:45)
[2020-10-09 05:35] LABS: Hematocrit 24.8 % (42.0-52.0); Hemoglobin 7.7 g/dL (14.0-18.0); Mean Corpuscular Hemoglobin 27.8 pg (26-34); Mean Corpuscular Volume 89.5 fl (80-100); Mean Platelet Volume 10.1 fl (7.4-10.4); Platelet Count Result 221 k/mm3 (150-375); Red Blood Count 2.77 M/mm3 (4.6-6.20); White Blood Count 11.9 K/mm3 (4.5-10.0)
[2020-10-09] MEDS: ALBUTEROL SULFATE NEB 2.5 MG/3 ML INH INHALATION (05:36)
[2020-10-09 05:54] LABS: Albumin Level 3.1 g/dL (3.5-5.1); Anion Gap 7 mmol/L (8-16); Blood Urea Nitrogen 43 mg/dL (9-20); Calcium 8.3 mg/dL (8.4-10.2); Carbon Dioxide 31 mmol/L (22-30); Chloride 101 mmol/L (98-107); Estimated CRCL calculation 70 ml/min; Estimated Glomerular Filt Rate 56; Glucose 100 mg/dL (75-110); Magnesium 1.8 mg/dL (1.6-2.3); Phosphorus 2.7 mg/dL (2.5-4.5); Potassium 3.8 mmol/L (3.4-5.0); Sodium 139 mmol/L (137-145)
[2020-10-09 07:24] LABS: Glucose Point of Care 115 mg/dl (65-105)
--- NOTE | 2020-10-09 09:10 | PM.PNCARD ---
Progress Note: A&P Assessment and Plan (1) Supraventricular arrhythmia: Code(s): I49.9 - Cardiac arrhythmia, unspecified Status: Acute Assessment and Plan: 64-year-old male with multiple medical problems-CAD status post PCI/drug-eluting stenting using 2.5 x 20 mm everolimus eluting stent on proximal LAD in the setting of VFib/TDP arrest on November 26 2013; PAF, severe pulmonary hypertension, CKD, COPD. Patient admitted to the hospital with generalized weakness, myalgias, fall, diarrhea. He was found to be in tachycardia, sinus tachycardia versus atrial flutter. Was initially treated with IV diltiazem. Tachycardia happened in the setting of hypoxemia, alcohol abuse with possible withdrawal, generalized debility/physical deconditioning. -On diltiazem CD 120 mg daily. He remains in normal sinus rhythm. -Patient's recent echocardiogram reported to show moderate . Clinical and echocardiographic surveillance as an outpatient. Follow-up with Dr. GUTIERREZ as an outpatient (2) Coronary artery disease: Qualifiers: Coronary Disease-Associated Artery/Lesion type: [place] artery [place] vs. transplanted heart: [place] heart Associated angina: without angina Qualified Code(s): I25.10 - Atherosclerotic heart disease of [place] coronary artery without angina pectoris Code(s): I25.10 - Atherosclerotic heart disease of [place] coronary artery without angina pectoris Status: Chronic Assessment and Plan: Continue aspirin, statin. Monitor H&H. (3) Alcohol abuse: Code(s): F10.10 - Alcohol abuse, uncomplicated Status: Chronic Assessment and Plan: Patient has history of heavy alcohol abuse. Monitor for delirium tremens. DT prophylaxis as per primary team. (4) Tobacco dependence: Code(s): F17.200 - Nicotine dependence, unspecified, uncomplicated Status: Chronic Assessment and Plan: Counseling performed (5) Acute renal failure superimposed on stage 3a chronic kidney disease: Qualifiers: Acute renal failure type: unspecified Qualified Code(s): N17.9 - Acute kidney failure, unspecified; N18.31 - Chronic kidney disease, stage 3a Code(s): N17.9 - Acute kidney failure, unspecified; N18.31 - Chronic kidney disease, stage 3a Status: Acute Assessment and Plan: Management as per primary team (6) Physical deconditioning: Code(s): R53.81 - Other malaise Status: Acute Assessment and Plan: May consider inpatient rehab (7) COPD (chronic obstructive pulmonary disease): Code(s): J44.9 - Chronic obstructive pulmonary disease, unspecified Status: Chronic Assessment and Plan: Management as per primary team (8) Pulmonary hypertension: Code(s): I27.20 - Pulmonary hypertension, unspecified Status: Acute Assessment and Plan: Pulmonary hypertension likely secondary to underlying intrinsic lung disease/COPD. Smoking cessation, supplemental oxygen as needed. Subjective Date/time seen: 10/09/20 09:10 Interval history: Cardiology follow-up for atrial flutter, CHF. Date of service 10/09/2020: Patient continues to feel better today. He does state that he did not sleep well last night. He thinks that his breathing is better. He denies any chest pain, palpitations, shortness of breath. Review of Systems Review of Systems: All systems reviewed & are unremarkable except as noted in HPI and below Constitutional: Constitutional: Denies anorexia and Reports weakness Eyes: Eyes: Denies blurry vision ENT: Reports Normal hearing present Cardiovascular: Cardiovascular: Denies chest pain, Denies pedal edema, Denies leg edema, Denies palpitations, Reports dyspnea and Reports dyspnea on exertion Respiratory: Respiratory: Reports cough, Reports dyspnea and Reports dyspnea on exertion Integumentary/Breasts: Skin/Breast: Reports dry skin Neurologic: Reports Normal hearing present and Reports w
[2020-10-09] MEDS: FOLIC ACID 1 MG TABLET PO (09:38)
[2020-10-09] MEDS: BUMETANIDE 1 MG TABLET PO (09:38)
[2020-10-09] MEDS: EUCERIN CREAM 120 GM JAR 1 APPLIC TOPICAL (09:39)
[2020-10-09] MEDS: PANTOPRAZOLE 40 MG TABLET PO (09:39)
[2020-10-09] MEDS: ASPIRIN 81 MG ENTERIC TABLET PO (09:39)
[2020-10-09] MEDS: POTASSIUM CHLORIDE 20 MEQ TABLET.ER 40 MEQ PO (09:39)
[2020-10-09] MEDS: ATORVASTATIN 40 MG TABLET 80 MG PO (09:39)
[2020-10-09] MEDS: THIAMINE HCL 200 MG/2 ML VIAL 100 MG IV PUSH (09:39)
--- NOTE | 2020-10-09 09:46 | PM.IMPN ---
Progress Note: A&P Assessment and Plan (1) Acute renal failure superimposed on stage 3a chronic kidney disease: Qualifiers: Acute renal failure type: unspecified Qualified Code(s): N17.9 - Acute kidney failure, unspecified; N18.31 - Chronic kidney disease, stage 3a Code(s): N17.9 - Acute kidney failure, unspecified; N18.31 - Chronic kidney disease, stage 3a Status: Acute Assessment and Plan: Creatinine 3.1 on admission with a BUN of 120. Urine sodium less than 5. Was felt acute kidney injury related to dehydration from diarrhea and poor oral intake. With IV fluids, BUN 51 creatinine 1.2. IV fluids stopped and Bumex resumed. Renal ultrasound normal. Cr 1.3 today. Nephrology following. Appreciate their input. Continue to follow. Expect Cr to climb back to baseline (2) Hypokalemia: Code(s): E87.6 - Hypokalemia Status: Acute Assessment and Plan: Potassium is 3.0 on admission. He is on daily supplements of potassium. Potassium 3.8 today. Continue to follow. Supplement dose increased. Repeat BMP in 1 week after discharge. (3) Chronic hyponatremia: Code(s): E87.1 - Hypo-osmolality and hyponatremia Status: Acute Assessment and Plan: Sodium 121 on admission. Cortisol level was high. Urine sodium was less than 5. [place] related to dehydration. With IV fluids, sodium has trended upward slowly to 139 today. Oral intake better. (4) Atrial flutter: Qualifiers: Atrial flutter type: unspecified Qualified Code(s): I48.92 - Unspecified atrial flutter Code(s): I48.92 - Unspecified atrial flutter Status: Acute Assessment and Plan: AFib with RVR treated with Cardizem drip. Patient converted to normal sinus rhythm. Echo dated August 2020 showing EF of 60 65% and severe pulmonary hypertension and moderate aortic stenosis. TSH normal. [id number] 3. Stool guaiac positive. Cardiology consulted and appreciate their input. Continue oral Cardizem. Continue ASA. (5) COPD (chronic obstructive pulmonary disease): Code(s): J44.9 - Chronic obstructive pulmonary disease, unspecified Status: Chronic Assessment and Plan: Patient with faint wheeze. Continue nebulizer treatments as needed. CXR showing unchanged chronic scarring RLL. Will continue the same for now. Continue Synbicort. Add scheduled Xopenex. (6) Diverticulitis large intestine: Code(s): K57.32 - Diverticulitis of large intestine without perforation or abscess without bleeding Status: Acute Assessment and Plan: CT Abd/Pelvis on admission showing acute sigmoid diverticulitis without evidence for perforation or abscess. No abd pain on exam today. WBC slightly better today. Diarrhea resolved. Stool studies pending. Day 710 of abx. Continue IV abx. Appreciate GI input. (7) Physical deconditioning: Code(s): R53.81 - Other malaise Status: Acute Assessment and Plan: Patient remains weak but improving with therapy. Continue supplements. PT and OT following. Increase activity as tolerated. SNF being arranged. (8) Protein-calorie malnutrition, severe: Code(s): E43 - Unspecified severe protein-calorie malnutrition Status: Acute Assessment and Plan: Patient's oral intake better. Continue supplements. Dietary following. (9) Chronic anemia: Code(s): D64.9 - Anemia, unspecified Status: Acute Assessment and Plan: Most likely anemia of chronic disease complicated by acute blood loss anemia from diverticulitis. Hemoglobin low but stable at 7.7. Patient is guaiac positive. Patient has had colonoscopy in Jun 2019 showing multiple polys s/p polypectomy and internal hemorrhoids; EGD at that time showing gastritis with gastric polyp s/p excision. Iron studies showing normal ferritin and elevated iron level of 115. Tsat 48%. Oral iron on hold for now. Transfuse if hemog
[2020-10-09 11:40] LABS: Glucose Point of Care 171 mg/dl (65-105)
[2020-10-09] MEDS: MAGNESIUM SULF 2 GM/WATER 50ML 2 GM/50 ML BAG IVPB (12:29)
--- NOTE | 2020-10-09 15:14 | PM.PNNEP ---
Progress Note: A&P Assessment and Plan (1) CHRISTOPHER (acute kidney injury): Code(s): N17.9 - Acute kidney failure, unspecified Status: Acute Assessment and Plan: resolved creatinine currently better than baseline at this time due to prerenal factors (diarrhea) and likely overdiuresis s/p IVF resuscitation resume home diuretic therapy (he will need this for his chronic heart failure) (2) Stage 3b chronic kidney disease: Code(s): N18.32 - Chronic kidney disease, stage 3b Status: Chronic Assessment and Plan: due to hypertension, vascular disease, and chronic pre-renal azotemia from right sided heart failure worsned by need for diuretic therapy baseline creatinine runs ~ 2.4mg/dl anticipate creatinine to return to baseline with resumption of diuretic therapy (3) Diarrhea: Qualifiers: Diarrhea type: unspecified type Qualified Code(s): R19.7 - Diarrhea, unspecified Code(s): R19.7 - Diarrhea, unspecified Status: Acute Assessment and Plan: clinically better Gastroenterology following (4) Right-sided heart failure: Code(s): I50.810 - Right heart failure, unspecified Status: Chronic Assessment and Plan: secondary to his OLIVE and smoking/lung disease continue current management/therapy (5) Benign essential hypertension: Code(s): I10 - Essential (primary) hypertension Status: Chronic Assessment and Plan: reasonably controlled at this time follow trend of hemodynamics (6) Obstructive sleep apnea: Code(s): G47.33 - Obstructive sleep apnea (adult) (pediatric) Status: Acute Assessment and Plan: needs ongoing treatment for this to help with heart failure issues Will continue to follow - not opposed to discharge from renal perspective. Subjective Date/time seen: 10/09/20 15:14 Overall, feels better at this time -- some anxiety about the step/level of care (rehab) which led to poor sleep last night but agrees it is a good idea; breathing appears stable if not better; no other acute issues or complaints voiced at the time of my visit. Exam Narrative: Exam Narrative: General: WD/WN male in NAD Heart: normal S1 and S2; no rub Lungs: clear to auscultation Abdomen: soft, nontender, nondistended, positive bowel sounds Extremities: no cyanosis or clubbing; no edema Skin: warm and dry Objective Data Vital Signs Vital Signs: Vital Signs Temp Pulse Resp BP Pulse Ox 10/09/20 14:33 87 18 91 10/09/20 14:00 36.4 C L 88 18 99/59 L 100 10/09/20 12:00 90 10/09/20 08:00 83 10/09/20 05:46 84 18 10/09/20 05:38 83 18 10/09/20 05:08 36.1 C L 103 H 20 114/71 95 10/09/20 04:00 88 10/09/20 00:00 81 10/08/20 21:50 95 10/08/20 20:11 36.6 C 94 20 98/48 L 93 10/08/20 20:00 94 Intake/Output Intake/Output: Intake & Output 10/06/20 10/07/20 10/08/20 10/09/20 23:59 23:59 23:59 23:59 Intake Total 3550 2740 1505 1140 Output Total 1750 1690 2150 500 Balance 1800 1050 -645 640 Meds/Results Medications: Active Medications Generic Name Dose Route Start Last Admin Trade Name Freq PRN Reason Stop Dose Admin Acetaminophen 650 mg 10/06/20 10:16 10/08/20 18:56 Acetaminophen 325 Mg Tablet PO 650 mg Q6H PRN Administration Mild Pain (1-3) or Fever Albuterol 2.5 mg 10/02/20 21:28 10/09/20 05:36 Albuterol Sulfate Neb 2.5 Mg/3 Ml Inh INHALATION 2.5 mg Q4H PRN Administration Shortness Of Breath Aspirin 81 mg 10/03/20 09:00 10/09/20 09:39 Aspirin 81 Mg Enteric Tablet PO 81 mg DAILY PAULINA Administration Atorvastatin Calcium 80 mg 10/03/20 09:00 10/09/20 09:39 Atorvastatin 40 Mg Tablet PO 80 mg DAILY PAULINA Administration Budesonide/Formoterol Fumarate 2 puff 10/07/20 10:35 10/09/20 09:38 Budesonide/Form 160-4.5 Mcg (*Sp) INHALATION 2 puff Q12HRT PAULINA Administration B
--- NOTE | 2020-10-09 15:57 | PM.DS ---
DS: Admitting Diagnosis Admitting Diagnosis Admitting Diagnosis: Weaknes and diarrhea DS: Discharge Diagnosis Discharge Diagnosis (1) Acute renal failure superimposed on stage 3a chronic kidney disease: Qualifiers: Acute renal failure type: unspecified Qualified Code(s): N17.9 - Acute kidney failure, unspecified; N18.31 - Chronic kidney disease, stage 3a Code(s): N17.9 - Acute kidney failure, unspecified; N18.31 - Chronic kidney disease, stage 3a Status: Acute Assessment and Plan: Creatinine 3.1 on admission with a BUN of 120. Urine sodium less than 5. Was felt acute kidney injury related to dehydration from diarrhea and poor oral intake. With IV fluids, BUN 51 creatinine 1.2. IV fluids stopped and Bumex resumed. Renal ultrasound normal. Cr up to 1.3. Nephrology followed along and appreciated their input. (2) Hypokalemia: Code(s): E87.6 - Hypokalemia Status: Acute Assessment and Plan: Potassium is 3.0 on admission. He is on daily supplements of potassium. Potassium replaced and it normalized. (3) Chronic hyponatremia: Code(s): E87.1 - Hypo-osmolality and hyponatremia Status: Acute Assessment and Plan: Sodium 121 on admission. Cortisol level okay. Urine sodium was less than 5. [place] related to dehydration. With IV fluids, sodium has trended upward slowly to 139 today. Oral intake better. (4) Atrial flutter: Qualifiers: Atrial flutter type: unspecified Qualified Code(s): I48.92 - Unspecified atrial flutter Code(s): I48.92 - Unspecified atrial flutter Status: Acute Assessment and Plan: AFib with RVR treated with Cardizem drip. Patient converted to normal sinus rhythm. Echo dated August 2020 showing EF of 60 65% and severe pulmonary hypertension and moderate aortic stenosis. TSH normal. [id number] 3. Stool guaiac positive. Cardiology consulted and appreciated their input. We continued oral Cardizem and ASA. (5) COPD (chronic obstructive pulmonary disease): Code(s): J44.9 - Chronic obstructive pulmonary disease, unspecified Status: Chronic Assessment and Plan: Patient with faint wheeze on occasion. Treated with nebulizer treatments as needed. CXR showing unchanged chronic scarring RLL. We continued Synbicort. (6) Diverticulitis large intestine: Code(s): K57.32 - Diverticulitis of large intestine without perforation or abscess without bleeding Status: Acute Assessment and Plan: CT Abd/Pelvis on admission showing acute sigmoid diverticulitis without evidence for perforation or abscess. Abd pain resolved. Diarrhea resolved. Stool studies negative. Treated with IV abx. Appreciated GI input. (7) Physical deconditioning: Code(s): R53.81 - Other malaise Status: Acute Assessment and Plan: Patient remains weak but improving with therapy. Supplements added. PT and OT followed. Increased activity as he tolerated. SNF was arranged. (8) Protein-calorie malnutrition, severe: Code(s): E43 - Unspecified severe protein-calorie malnutrition Status: Acute Assessment and Plan: Patient's oral intake better. Supplements added. Dietary followed along (9) Chronic anemia: Code(s): D64.9 - Anemia, unspecified Status: Acute Assessment and Plan: Most likely anemia of chronic disease complicated by acute blood loss anemia from diverticulitis. Hemoglobin low but stable at 7.7. Patient is guaiac positive. Patient has had colonoscopy in Jun 2019 showing multiple polys s/p polypectomy and internal hemorrhoids; EGD at that time showing gastritis with gastric polyp s/p excision. Iron studies here showing normal ferritin and elevated iron level of 115. Tsat 48%. Oral iron held. (10) Chronic alcoholism: Code(s): F10.20 - Alcohol dependence, uncomplicated Status: Acute Assessment and Pl
[2020-10-09 17:00] LABS: Glucose Point of Care 133 mg/dl (65-105)
== END 2020-10-09 17:40 | DRG 682 ==
LOC: ANHED 18:58 → ANHIMU 19:36 → ANH2MED 10-05 13:44
PROVIDERS: Internal Medicine; Internal Medicine Nephrology; Admitting Provider Internal Medicine; Emergency Provider Emergency Medicine; PCP Internal Medicine; Visit Provider Internal Medicine
DX: N17.9 Acute kidney failure, unspecified (principal); E43 Unspecified severe protein-calorie malnutrition; Z68.41 Body mass index [BMI] 40.0-44.9, adult; I13.0 Hypertensive heart and chronic kidney disease with heart failure and stage 1 through stage 4 chronic kidney disease, or unspecified chronic kidney disease; I50.42 Chronic combined systolic (congestive) and diastolic (congestive) heart failure; E87.1 Hypo-osmolality and hyponatremia; I48.92 Unspecified atrial flutter; K57.32 Diverticulitis of large intestine without perforation or abscess without bleeding; D62 Acute posthemorrhagic anemia; I47.1 Supraventricular tachycardia; I48.0 Paroxysmal atrial fibrillation; I35.0 Nonrheumatic aortic (valve) stenosis; M19.90 Unspecified osteoarthritis, unspecified site; E53.8 Deficiency of other specified B group vitamins; I25.10 Atherosclerotic heart disease of native coronary artery without angina pectoris; F51.04 Psychophysiologic insomnia; I12.9 Hypertensive chronic kidney disease with stage 1 through stage 4 chronic kidney disease, or unspecified chronic kidney disease; J44.9 Chronic obstructive pulmonary disease, unspecified; E11.22 Type 2 diabetes mellitus with diabetic chronic kidney disease; K21.9 Gastro-esophageal reflux disease without esophagitis; M10.9 Gout, unspecified; I25.2 Old myocardial infarction; G47.00 Insomnia, unspecified; E78.00 Pure hypercholesterolemia, unspecified; G47.33 Obstructive sleep apnea (adult) (pediatric); I27.20 Pulmonary hypertension, unspecified; E11.51 Type 2 diabetes mellitus with diabetic peripheral angiopathy without gangrene; K42.9 Umbilical hernia without obstruction or gangrene; F17.210 Nicotine dependence, cigarettes, uncomplicated; E66.01 Morbid (severe) obesity due to excess calories; E87.6 Hypokalemia; E86.0 Dehydration; R19.7 Diarrhea, unspecified; D63.8 Anemia in other chronic diseases classified elsewhere; F10.20 Alcohol dependence, uncomplicated; Y90.9 Presence of alcohol in blood, level not specified; N18.32 Chronic kidney disease, stage 3b; I50.810 Right heart failure, unspecified; I87.8 Other specified disorders of veins; Z86.010 Personal history of colon polyps; K64.8 Other hemorrhoids; K29.70 Gastritis, unspecified, without bleeding
CPT/HCPCS: 36415; 36600; 51702; 71045; 71046; 74019; 74176; 76775; 80048; 80053; 80069; 81001; 82274; 82533; 82550; 82570; 82607; 82728; 82746; 82805; 82948; 83540; 83550; 83605; 83735; 83930; 83935; 84100; 84156; 84295; 84300; 84443; 85025; 85027; 85610; 85730; 85999; 86140; 87040; 87045; 87046; 87427; 89055; 93005; 94640; 94762; 96361; 96374; 97110; 97116; 97162; 97165; 97530; 97535; 99285; A9270; C9803; J0696; J2060; J2920; J3411; J3475; J7030; J7040; U0003; U0005

== ENCOUNTER 2020-10-13 20:43 | Inpatient (IN) | payer MEDICARE, SELFPAY ==
--- NOTE | ~2020-10-13 | CT_ITS ---
EXAMINATION: CT abdomen pelvis wo con DATE: 10/14/2020 11:24 INDICATION: For. Recent diverticulitis. TECHNIQUE: Computed tomography (CT) of the abdomen and pelvis was performed without intravenous contr ast. The dose-length product was 1395.29 mGy-cm. Automated exposure control and iterative reconstruct ion technique were employed. COMPARISON: CT dated 10/03/2020 FINDINGS: Heart size normal. There is atherosclerosis. Small right pleural effusion. There is consoli dation in the right middle and lower lobe, likely atelectasis. There is a 4 x 2 cm soft tissue nodule right paravertebral soft tissues, image 23, possibly lymphadenopathy. Small left pleural effusion. Small supraumbilical fat-containing hernia. Right periumbilical hernia containing fat with internal stranding. Fat necrosis cannot be excluded. I nterval resolution of sigmoid diverticulitis. The spleen, pancreas, adrenal glands are unremarkable. There are nonobstructing bilateral renal stone s. No hydronephrosis. No obstruction. No free air or free fluid. Mildly enlarged para-aortic lymph no tessie. Gallbladder is present. Mild osteoarthritis of the hips. IMPRESSION: 1. Interval resolution of sigmoid diverticulitis. 2: Supraumbilical and periumbilical fat-containing hernias. The larger periumbilical hernia contains areas of fat stranding, suspicious for fat necrosis. 3: Retrocrural and left periaortic/retroperitoneal lymphadenopathy, nonspecific. If there is a histor y of malignancy, consider metastatic disease. 4: Small pleural effusions, right greater than left. Consolidation of the right middle and lower lobe are not significantly changed, likely atelectasis. Atypical pneumonia less favored. 5: Nonobstructing bilateral nephrolithiasis. Reviewed, dictated and finalized at location B. IMPRESSION: 1. Interval resolution of sigmoid diverticulitis. 2: Supraumbilical and periumbilical fat-containing hernias. The larger periumbi lical hernia contains areas of fat stranding, suspicious for fat necrosis. 3: Retrocrural and left periaortic/retroperitoneal lymphadenopathy, nonspecific . If there is a history of malignancy, consider metastatic disease. 4: Small pleural effusions, right greater than left. Consolidation of the right middle and lower lobe are not significantly changed, likely atelectasis. Atypi lonnie pneumonia less favored. 5: Nonobstructing bilateral nephrolithiasis.
--- NOTE | ~2020-10-13 | XR_ITS ---
XR chest 2V 10/14/2020 11:18 Indication: Fever and shortness of breath Procedure: AP and lateral views of the chest Comparison: Comparison to multiple prior studies sequentially, with oldest reviewed study dated 08/26. Findings: Stable chronic right basilar atelectasis/scarring. Stable small right pleural effusion. Hea rt size is normal. There is atherosclerosis. No pneumothorax. No acute osseous abnormality. Impression: 1: Stable right basilar airspace disease which may represent atelectasis/scarring or atypical pneumon ia. 2: Stable small right pleural effusion. Reviewed, dictated and finalized at location B. Impression: 1: Stable right basilar airspace disease which may represent atelectasis/scarri ng or atypical pneumonia. 2: Stable small right pleural effusion.
--- NOTE | 2020-10-13 20:50 | ED.GENADULT ---
HPI - General Adult General Chief complaint: Recheck/Abnormal Lab/Rx Stated complaint: abnormal labs Source: patient History of Present Illness HPI narrative: Patient is a 64 y/o male sent from [facility] for low H/H. Patient reportedly had labs drawn earlier and his hemoglobin was 6.8. There is no known alleviating or exacerbating factor. Patient denies any bleeding. He states that he is chronically SOB due to COPD. He also has chronic leg pain and swelling. Related Data Home Medications Medication Instructions Recorded Confirmed albuterol sulfate 2.5 mg INHALATION Q4H PRN 08/26/20 10/02/20 aspirin 81 mg PO DAILY 08/26/20 10/02/20 atorvastatin 80 mg PO DAILY 08/26/20 10/02/20 pantoprazole 40 mg PO DAILY 10/02/20 10/02/20 potassium chloride 20 meq PO DAILY 10/02/20 10/02/20 Allergies Allergy/AdvReac Type Severity Reaction Status Date / Time No Known Allergies Allergy Verified 10/02/20 14:31 Review of Systems Constitutional: Constitutional: Denies chills, Denies fever(s), Denies headache(s) and Denies weakness Eyes: Eyes: Denies blurry vision ENT: Denies headache(s) and Denies neck pain Cardiovascular: Cardiovascular: Denies chest pain and Reports dyspnea Respiratory: Respiratory: Denies cough and Reports dyspnea Gastrointestinal: Gastrointestinal: Denies abdominal pain, Denies diarrhea, Denies nausea and Denies vomiting Genitourinary: Genitourinary: Denies hematuria and Denies dysuria Musculoskeletal: Musculoskeletal: Denies back pain and Denies neck pain Neurologic: Denies headache(s) and Denies weakness FORMERLY [facility], [facility] Past Medical History Medical History Acute kidney injury Anemia in stage 3a chronic kidney disease Aortic stenosis Noted on echo March 2019 was mild with a mean gradient of 7 a valve area of 1.6 Arthritis B12 deficiency Diagnosed December 2018 with adequate supplementation B12 level is now elevated Benign essential hypertension Body mass index (BMI) 40.0-44.9, adult CAD (coronary artery disease) Cellulitis Recurrent lower extremity cellulitis Chronic insomnia Chronic kidney disease, stage 3a 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 Right ventricular chamber dimension is severely enlarged. 2. Right ventricular systolic function is moderate to severely reduced. 3. Prominent moderator band. 4. Flattening of the septum in diastole and systole consistent with right ventricular volume and pressure overload. 5. Right atrial chamber dimension is markedly enlarged. 6. There is mild aortic valve stenosis with a peak velocity of 186 cm/s, mean gradient of 7 mmHg, and aortic valve area of 1.6 cm2. 7. There is mild aortic valve calcification. 8. There is moderate tricuspid valve regurgitation. 9. Mild thickening with suggested focal calcification of tricuspid valve which cannot be further characterized given limited visualization. 10. Moderate pulmonary hypertension, estimated pulmonary arterial systolic pressure is 56 mmHg. 11. Dilated inferior vena cava with <50% collapse upon inspiration consistent with elevated right atrial pressure, 15 mmHg. 12. Left ventricular systolic function is normal, estimated at 55-60%. 13. There is mildly increased left ventricular wall thickness. 14. The left ventricular diastolic function is grade II diastolic dysfunction. COPD (chronic obstructive pulmonary disease) Coronary artery disease Diabetes Diverticulitis large intestine GERD (gastroesophageal reflux disease) Gout Heart attack 2013 with cardiac arrest requiring defibrillation Hypercholesteremia Insomnia Kidney stones Many years ago the patient passed on his own Leg fracture, right Moderate pulmonary arterial systolic hypertension Obstructive sleep apnea Refuses CPAP Occult blood in stools Other and unspecified hyperlipidemia Paroxysmal atrial fibrillation (~03/2019) Pulmonary
[2020-10-13 20:51] VITALS: BP 99/84; PULSE 91; RESP 23; TEMP 36.8; O2SAT 100
[2020-10-13 20:56] VITALS: RESP 26
[2020-10-13 22:17] LABS: Basophils Percent Auto 0.2 % (0.2-1.2); Eosinophils Absolute Auto 0.1 K/mm3 (0-0.3); Eosinophils Percent Auto 0.5 % (0-4.4); Hematocrit 21.3 % (42.0-52.0); Immature Granulocyte Absolute 0.07 K/mm3 (0.00-0.031); Immature Granulocyte Percent A 0.6 % (0-0.5); Lymphocytes Absolute Auto 0.93 K/mm3 (0.9-3.2); Lymphocytes Percent Auto 7.6 % (18.3-44.2); Mean Corpuscular Hemoglobin 27.6 pg (26-34); Mean Corpuscular Volume 89.1 fl (80-100); Mean Platelet Volume 10.5 fl (7.4-10.4); Monocytes Absolute Auto 0.9 K/mm3 (0.1-0.6); Monocytes Percent Auto 7.4 % (2.6-8.5); Neutrophils Absolute Auto 10.3 K/mm3 (1.3-6.7); Neutrophils Percent Auto 83.7 % (45.5-73.1); Platelet Count Result 279 k/mm3 (150-375); Red Blood Count 2.39 M/mm3 (4.6-6.20); Red Cell Distribution Width 18.9 % (11.5-14.5); White Blood Count 12.3 K/mm3 (4.5-10.0)
[2020-10-13 22:22] LABS: Alanine Aminotransferase 10 U/L (4-50); Albumin Level 3.1 g/dL (3.5-5.1); Alkaline Phosphatase 160 U/L (38-126); Anion Gap 10 mmol/L (8-16); Aspartate Amino Transferase 25 U/L (17-59); Bilirubin,Total 0.6 mg/dL (0.2-1.3); Blood Urea Nitrogen 35 mg/dL (9-20); Carbon Dioxide 25 mmol/L (22-30); Chloride 100 mmol/L (98-107); Estimated CRCL calculation 52 ml/min; Estimated Glomerular Filt Rate 41; Glucose 109 mg/dL (75-110); Potassium 4.2 mmol/L (3.4-5.0); Sodium 135 mmol/L (137-145)
[2020-10-13 22:26] LABS: Hemoglobin 6.6 g/dL (14.0-18.0)
[2020-10-13 23:05] VITALS: BP 120/67; PULSE 92; RESP 21; O2SAT 95
[2020-10-13 23:07] LABS: Add Urine Microscopic? YES; Appearance Urine Clear (Clear); Bilirubin Urine Negative (Negative); Blood Urine 1+ (Negative); Color Urine Yellow (Yellow); Glucose Urine UA Negative (Negative); Ketones Urine Negative (Negative); Leukocyte Esterase Ur Negative LEU/UL (Negative); Mucus Urine Rare /lpf; Nitrate Urine Negative (Negative); Protein Urine Negative (Negative); RBC Urine 0-2 /hpf (0-2); Specific Grav Ur 1.015 (1.001-1.035); Squamous Epithelial Cell Urine Rare /hpf (Few); Urobilinogen Urine Negative mg/dL (<2.0); WBC Urine 0-3 /hpf
[2020-10-14] VITALS (27 sets, daily range): BP systolic 85–122; BP diastolic 41–84; PULSE 68–127; RESP 16–96; TEMP 36–38.2; O2SAT 18–100; BMI 32.3
--- NOTE | 2020-10-14 | PM.IMHP ---
H&P: HPI History of Present Illness Date/Time: 10/14/20 00:00 Chief Complaint: Low hemoglobin Narrative: This is a 64-year-old male with past medical history significant for a toe dependence, tobacco dependence, atrial fibrillation, chronic kidney disease, COPD, chronic bilateral lower extremity lymphedema, patient with recent admission to our hospital and discharged to intermediate for rehabilitation was brought today to our emergency room due to concerns due to low hemoglobin. Patient denies any melena ,hematemesis, hematochezia nor hemoptysis. He denies any nausea vomiting or diarrhea no dizziness no chest pain no fevers no rigors no chills no PND no orthopnea no cough or sputum production. A repeat level in our emergency room showed a hemoglobin of 6.6. Patient has been placed in observation and transfusion of 1 unit of red blood cells. Review of Systems Review of Systems: Narrative: Patient presented to the emergency room due to concerns at intermediate after his hemoglobin came back at 6.6 Constitutional: Constitutional: Denies chills, Denies difficulty sleeping, Denies fever(s), Denies lethargy and Denies weakness Eyes: Eyes: Denies change in vision ENT: Denies hoarseness, Denies nasal congestion, Denies nasal discharge, Denies nasal obstruction and Denies odynophagia Cardiovascular: Cardiovascular: Denies irregular heart rhythm, Reports leg edema, Denies radiating jaw, neck or arm pain, Denies palpitations and Denies orthopnea Respiratory: Respiratory: Denies change in phlegm color, Denies cough, Denies dyspnea and Denies wheezing Gastrointestinal: Gastrointestinal: Denies hematochezia, Denies change in stool character, Denies dyspepsia, Denies heartburn, Denies diarrhea and Denies nausea Genitourinary: Genitourinary: Reports no additional male genitourinary complaints Musculoskeletal: Comments: Chronic bilateral lower extremity lymphedema Integumentary/Breasts: Skin/Breast: Reports swelling and Denies rash Comments: Bilateral lower extremity swelling and redness Neurologic: Denies focal weakness and Denies Sensory deficit (Neuro) Psychiatric: Psychiatric: Reports no additional psychiatric complaints Endocrine: Endocrine: Reports no additional endocrine complaints Hematologic/Lymphatic: Hematologic/Lymphatic: Reports no additional hematologic/lymphatic complaints Allergic/Immunologic: Allergic/Immunologic: Reports no additional allergic/immunologic complaints PMFSH Past Medical History Medical History Acute kidney injury Anemia in stage 3a chronic kidney disease Aortic stenosis Noted on echo March 2019 was mild with a mean gradient of 7 a valve area of 1.6 Arthritis B12 deficiency Diagnosed December 2018 with adequate supplementation B12 level is now elevated Benign essential hypertension Body mass index (BMI) 40.0-44.9, adult CAD (coronary artery disease) Cellulitis Recurrent lower extremity cellulitis Chronic insomnia Chronic kidney disease, stage 3a 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 Right ventricular chamber dimension is severely enlarged. 2. Right ventricular systolic function is moderate to severely reduced. 3. Prominent moderator band. 4. Flattening of the septum in diastole and systole consistent with right ventricular volume and pressure overload. 5. Right atrial chamber dimension is markedly enlarged. 6. There is mild aortic valve stenosis with a peak velocity of 186 cm/s, mean gradient of 7 mmHg, and aortic valve area of 1.6 cm2. 7. There is mild aortic valve calcification. 8. There is moderate tricuspid valve regurgitation. 9. Mild thickening with suggested focal calcification of tricuspid valve which cannot be further characterized given limited visualization. 10. Moderate pulmonary hypertension, estimated pulmonary arterial systolic pressure is 56 mmHg. 11. Dilated infe
--- NOTE | 2020-10-14 01:19 | ADMGEN ---
This patient, Solo Krishnan, was admitted to 3 [facility] Surg Room 311-01. Patient/family oriented to hospital policies and general routines including ID bracelet, bed and alarms, visiting hours, pain management, procedures, bathroom and other care routines, personal items, smoking policy, room service/diet, and visiting hours. Information on how to activate the Rapid Response Team has been discussed. Patient/Family are encouraged to report perceived risks to care and to ask questions if they do not understand what they are told or what they should do.
[2020-10-14] MEDS: SODIUM CHLORIDE 0.9% IV 250 ML 30 ML IV CONT ×2 (02:12→13:23)
[2020-10-14] MEDS: TUBING, BLOOD PLUM PUMP TUBING 1 EACH XX (02:30)
[2020-10-14] MEDS: ACETAMINOPHEN 325 MG TABLET 650 MG PO ×2 (05:44→21:05)
[2020-10-14 09:04] LABS: Basophils Percent Auto 0.3 % (0.2-1.2); Eosinophils Percent Auto 0.4 % (0-4.4); Hematocrit 21.4 % (42.0-52.0); Immature Granulocyte Absolute 0.07 K/mm3 (0.00-0.031); Immature Granulocyte Percent A 0.7 % (0-0.5); Lymphocytes Absolute Auto 0.85 K/mm3 (0.9-3.2); Lymphocytes Percent Auto 8.3 % (18.3-44.2); Mean Corpuscular HGB Conc 32.2 g/dl (32-36); Mean Corpuscular Hemoglobin 28.5 pg (26-34); Mean Corpuscular Volume 88.4 fl (80-100); Mean Platelet Volume 10.9 fl (7.4-10.4); Monocytes Absolute Auto 0.8 K/mm3 (0.1-0.6); Monocytes Percent Auto 7.9 % (2.6-8.5); Neutrophils Absolute Auto 8.5 K/mm3 (1.3-6.7); Neutrophils Percent Auto 82.4 % (45.5-73.1); Platelet Count Result 288 k/mm3 (150-375); Red Blood Count 2.42 M/mm3 (4.6-6.20); Red Cell Distribution Width 18.8 % (11.5-14.5); White Blood Count 10.3 K/mm3 (4.5-10.0)
[2020-10-14 09:08] LABS: Hemoglobin 6.9 g/dL (14.0-18.0)
[2020-10-14 09:12] LABS: Anion Gap 8 mmol/L (8-16); Blood Urea Nitrogen 32 mg/dL (9-20); Calcium 7.9 mg/dL (8.4-10.2); Carbon Dioxide 26 mmol/L (22-30); Chloride 100 mmol/L (98-107); Estimated CRCL calculation 58 ml/min; Estimated Glomerular Filt Rate 47; Glucose 101 mg/dL (75-110); Potassium 3.9 mmol/L (3.4-5.0); Sodium 134 mmol/L (137-145)
[2020-10-14] MEDS: PANTOPRAZOLE 40 MG TABLET PO (09:26)
[2020-10-14] MEDS: POTASSIUM CHLORIDE 20 MEQ TABLET.ER PO (09:26)
[2020-10-14] MEDS: EUCERIN CREAM 120 GM JAR 1 APPLIC TOPICAL (09:27)
[2020-10-14] MEDS: ATORVASTATIN 40 MG TABLET 80 MG PO (09:27)
--- NOTE | 2020-10-14 12:02 | PM.IMPN ---
Progress Note: A&P Assessment and Plan (1) Acute on chronic anemia: Code(s): D64.9 - Anemia, unspecified Status: Acute Assessment and Plan: Chronic anemia likely secondary to CKD exacerbated suspected blood loss anemia. Hemoglobin was low at 6.4 upon presentation he received 1 unit pRBC early this morning with minimal improvement in Hgb. Iron panel from September 2020 reviewed. Will transfuse an additional unit of blood. Repeat H&H 1 hour following transfusion Monitor H&H Q 6 hours following to ensure remaining stable Transfuse to stable Hgb >7.0. (2) Occult blood in stools: Code(s): R19.5 - Other fecal abnormalities Status: Acute Assessment and Plan: Hemoccult-positive stool on 10/04/2020, at that time felt to be related to recent episode of diverticulitis. Colonoscopy in June 2019 with multiple polyps and internal hemorrhoids, EGD with gastritis and gastric polyp s/p excision. No obvious source of upper or lower GI bleeding at this time. Will consult gastroenterology in light of worsened anemia. Input is appreciated Continue p.o. Protonix. Aspirin is on hold. Avoid NSAIDs. (3) Atrial flutter: Qualifiers: Atrial flutter type: unspecified Qualified Code(s): I48.92 - Unspecified atrial flutter Code(s): I48.92 - Unspecified atrial flutter Status: Acute Assessment and Plan: Rate is controlled at this time. Continue Cardizem He is not on long-term anticoagulation given his anemia (4) Chronic alcoholism: Code(s): F10.20 - Alcohol dependence, uncomplicated Status: Acute Assessment and Plan: Last drink was over 2 weeks ago. No signs of alcohol withdrawal. Begin thiamine and folic acid Monitor clinically for any signs of withdrawal, do not anticipate given duration since last drink. (5) Acute renal failure superimposed on stage 3a chronic kidney disease: Qualifiers: Acute renal failure type: unspecified Qualified Code(s): N17.9 - Acute kidney failure, unspecified; N18.31 - Chronic kidney disease, stage 3a Code(s): N17.9 - Acute kidney failure, unspecified; N18.31 - Chronic kidney disease, stage 3a Status: Acute Assessment and Plan: Baseline appears fluctuant. Creatinine was down to 1.3 at time of discharge last week. Creatinine was 1.7 at time of presentation with improvement down to 1.5 today, mostly consistent with baseline. Monitor renal function closely. (6) Physical deconditioning: Code(s): R53.81 - Other malaise Status: Acute Assessment and Plan: He was just discharged on 10/09/2020 to SNF for rehab given his deconditioning. Will continue with PT/OT during his stay once stabilized following blood transfusion. He will likely be discharged back to rehab. Care coordination following (7) Tobacco dependence: Code(s): F17.200 - Nicotine dependence, unspecified, uncomplicated Status: Chronic Assessment and Plan: He reports smoking 1/2 ppd. Declines need for nicotine patch. 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 Blood sugars reviewed and are fairly well controlled. Accu-Cheks, sliding scale insulin, and hypoglycemic protocol Monitor glucose trends (9) Low grade fever: Code(s): R50.9 - Fever, unspecified
[2020-10-14 18:04] LABS: Glucose Point of Care 117 mg/dl (65-105)
[2020-10-14 18:10] LABS: Hematocrit 24.2 % (42.0-52.0); Hemoglobin 7.9 g/dL (14.0-18.0)
[2020-10-14] MEDS: MELATONIN 3 MG TABLET PO (21:00)
[2020-10-14 21:36] LABS: Glucose Point of Care 120 mg/dl (65-105)
[2020-10-14] MEDS: KETOROLAC 15 MG/ML VIAL (*BKC) IV PUSH (22:41)
[2020-10-15] VITALS (14 sets, daily range): BP systolic 85–115; BP diastolic 54–69; PULSE 80–123; RESP 18–24; TEMP 36.5–37.2; O2SAT 91–100
[2020-10-15 00:39] LABS: Hematocrit 21.6 % (42.0-52.0)
[2020-10-15] MEDS: SODIUM CHLORIDE 0.9% IV 250 ML 30 ML IV CONT (03:42)
--- NOTE | 2020-10-15 06:33 | PC.NURSE ---
Dr Jarrett called at 0105 for low H&P and hypotension. She ordered 1 unit of blood which was given after 0300. He tolerated it well with no S&S of a transfusion reaction. His IV leaked and wouldn't flush necessitating a new IV in his L arm which flowed well. BP appeared to improve as well.
[2020-10-15 08:02] LABS: Hematocrit 25.4 % (42.0-52.0); Hemoglobin 8.2 g/dL (14.0-18.0); Mean Corpuscular HGB Conc 32.3 g/dl (32-36); Mean Corpuscular Hemoglobin 28.1 pg (26-34); Mean Platelet Volume 10.2 fl (7.4-10.4); Platelet Count Result 261 k/mm3 (150-375); Red Blood Count 2.92 M/mm3 (4.6-6.20); Red Cell Distribution Width 18.6 % (11.5-14.5); White Blood Count 9.3 K/mm3 (4.5-10.0)
[2020-10-15 08:16] LABS: Anion Gap 8 mmol/L (8-16); Blood Urea Nitrogen 31 mg/dL (9-20); Calcium 7.9 mg/dL (8.4-10.2); Carbon Dioxide 25 mmol/L (22-30); Chloride 100 mmol/L (98-107); Estimated CRCL calculation 58 ml/min; Estimated Glomerular Filt Rate 47; Glucose 98 mg/dL (75-110); Potassium 4.1 mmol/L (3.4-5.0); Sodium 133 mmol/L (137-145)
[2020-10-15] MEDS: THIAMINE HCL 100 MG TABLET PO (08:59)
[2020-10-15] MEDS: POTASSIUM CHLORIDE 20 MEQ TABLET.ER PO (08:59)
[2020-10-15] MEDS: ATORVASTATIN 40 MG TABLET 80 MG PO (08:59)
[2020-10-15] MEDS: EUCERIN CREAM 120 GM JAR 1 APPLIC TOPICAL (08:59)
[2020-10-15] MEDS: PANTOPRAZOLE 40 MG TABLET PO (08:59)
[2020-10-15] MEDS: FOLIC ACID 1 MG TABLET PO (08:59)
[2020-10-15] MEDS: ACETAMINOPHEN 325 MG TABLET 650 MG PO (09:01)
[2020-10-15 09:14] LABS: Glucose Point of Care 101 mg/dl (65-105)
[2020-10-15 10:48] LABS: Lactate Dehydrogenase 376 U/L (313-618)
[2020-10-15 11:54] LABS: Hematocrit 24.9 % (42.0-52.0); Hemoglobin 7.9 g/dL (14.0-18.0)
--- NOTE | 2020-10-15 13:01 | PM.IMPN ---
Progress Note: A&P Assessment and Plan (1) Acute on chronic anemia: Code(s): D64.9 - Anemia, unspecified Status: Acute Assessment and Plan: Chronic anemia likely secondary to CKD exacerbated by suspected blood loss anemia. Iron panel from September 2020 reviewed and is sufficient. LDH and total bilirubin within normal limits. Hemoglobin declined to 7.0 early this morning he was transfused an additional 1 unit for total of 3 units PRBC this hospitalization Trend H&H q.6 hours to ensure remaining stable Transfuse to stable Hgb >7.0. Consider hematology consultation based on GI recommendations/workup (2) Occult blood in stools: Code(s): R19.5 - Other fecal abnormalities Status: Acute Assessment and Plan: Hemoccult-positive stool on 10/04/2020, at that time felt to be related to recent episode of diverticulitis. Colonoscopy in June 2019 with multiple polyps and internal hemorrhoids, EGD with gastritis and gastric polyp s/p excision. No obvious source of upper or lower GI bleeding at this time. Appreciate gastroenterology consultation. Will await recommendations. Continue p.o. Protonix. Aspirin is on hold. Avoid NSAIDs. Occult blood test ordered. Waiting specimen for collection (3) Atrial flutter: Qualifiers: Atrial flutter type: unspecified Qualified Code(s): I48.92 - Unspecified atrial flutter Code(s): I48.92 - Unspecified atrial flutter Status: Acute Assessment and Plan: Rate is controlled at this time. Continue Cardizem He is not on long-term anticoagulation given his anemia (4) Chronic alcoholism: Code(s): F10.20 - Alcohol dependence, uncomplicated Status: Acute Assessment and Plan: Last drink was over 2 weeks ago. No signs of alcohol withdrawal. Started on thiamine and folic acid Monitor clinically for any signs of withdrawal, do not anticipate given duration since last drink. (5) Acute renal failure superimposed on stage 3a chronic kidney disease: Qualifiers: Acute renal failure type: unspecified Qualified Code(s): N17.9 - Acute kidney failure, unspecified; N18.31 - Chronic kidney disease, stage 3a Code(s): N17.9 - Acute kidney failure, unspecified; N18.31 - Chronic kidney disease, stage 3a Status: Acute Assessment and Plan: Baseline appears fluctuant. Creatinine was down to 1.3 at time of discharge last week. Creatinine was 1.7 at time of presentation with improvement down to 1.5, mostly consistent with baseline. Monitor renal function closely. (6) Physical deconditioning: Code(s): R53.81 - Other malaise Status: Acute Assessment and Plan: He was just discharged on 10/09/2020 to SNF for rehab given his deconditioning. Appreciate PT/OT eval. He will likely be discharged back to rehab. Care coordination following (7) Tobacco dependence: Code(s): F17.200 - Nicotine dependence, unspecified, uncomplicated Status: Chronic Assessment and Plan: He reports smoking 1/2 ppd. Declines need for nicotine patch. 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 Blood sugars reviewed and are fairly well controlled. Accu-Cheks, sliding scale insulin, and hypoglycemic protocol Monitor glucose trends (9) Low grade fever: Co
--- NOTE | 2020-10-15 16:16 | WPDGICN ---
Assessment and Plan Assessment and plan (1) Acute on chronic anemia: Code(s): D64.9 - Anemia, unspecified Status: Acute Assessment and Plan: recent gi work up last year was negative I offered to repeat colonoscopy but does not want to and denies overt gib, he says that stool had normal color diverticulitis is resolved consider hematology/oncology consult (2) Occult blood in stools: Code(s): R19.5 - Other fecal abnormalities Status: Acute Assessment and Plan: probably from recent diverticulitis, etc (3) CKD (chronic kidney disease): Qualifiers: Chronic kidney disease stage: unspecified stage Qualified Code(s): N18.9 - Chronic kidney disease, unspecified Code(s): N18.9 - Chronic kidney disease, unspecified Status: Acute (4) Diverticulitis large intestine: Code(s): K57.32 - Diverticulitis of large intestine without perforation or abscess without bleeding Status: Acute Assessment and Plan: resolved (5) Atrial flutter: Qualifiers: Atrial flutter type: unspecified Qualified Code(s): I48.92 - Unspecified atrial flutter Code(s): I48.92 - Unspecified atrial flutter Status: Acute (6) Retroperitoneal lymphadenopathy: Code(s): R59.0 - Localized enlarged lymph nodes Status: Acute Assessment and Plan: probably from recent diverticulitis may need to repeat imaging again GI Consult Note Consult date/time: 10/15/20 16:16 Reason for consult: acute on chronic anemia HPI: Solo Krishnan is a 64 year old male who I met during recent hospitalization because acute on chronic anemia, also occult blood in stool but this was in the setting of diverticulitis. He has history of chronic kidney disease (creat 1.7-2), chronic anemia (hb 8-9 which prompted EGD and colonoscopy [address] Snell that showed mild gastritis and colon polyps/hemorrhoids), hypertension, paroxysmal atrial fibrillation, systolic and diastolic congestive heart failure, CAD status post PCI/drug-eluting stenting in the setting of VFib/TDP arrest on November 26 2013; PAF, severe pulmonary hypertension, COPD and alcohol use. Last admission treated for diarrhea, diverticulitis and SVT. He went to local rehab where had routine blood work, found hb 6.6 and transferred here. Patient denies any overt gib, in fact he did not want to come in here initially, he says that was out smoking when he was told that needed to come here for further evaluation because worsening anemia. Denies any diarrhea, blood in stool or abdominal pain. CT scan a/p reviewed, showed interval resolution of sigmoid diverticulitis, supraumbilical and periumbilical fat-containing hernias, retrocrural and left periaortic/retroperitoneal lymphadenopathy, nonspecific. If there is a history of malignancy, consider metastatic disease. He is comfortable now. Main complain is leg edema which is chronic. Review of Systems Constitutional: Constitutional: Denies chills Eyes: Eyes: Denies blurry vision ENT: Reports Normal hearing present Cardiovascular: Cardiovascular: Denies chest pain Respiratory: Respiratory: Denies cough Gastrointestinal: Gastrointestinal: Denies abdominal pain and Denies nausea Genitourinary: Genitourinary: Denies dysuria Musculoskeletal: Musculoskeletal: Denies neck pain Integumentary/Breasts: Skin/Breast: Reports dry skin Psychiatric: Psychiatric: Reports no additional psychiatric complaints PMFSH Past Medical History Medical History (Updated 10/15/20 @ 16:28 by Boni Cowan MD) Acute kidney injury Anemia in stage 3a chronic kidney disease Aortic stenosis Noted on echo March 2019 was mild with a mean gradient of 7 a valve area of 1.6 Arthritis B12 deficiency Diagnosed December 2018 with adequate supplementation B12 level is now elevated Benign essential hypertension Body mass index (BMI) 40.0-44.9, adult CAD (coronary artery disease) Cellulitis Recurr
[2020-10-15 17:32] LABS: Glucose Point of Care 96 mg/dl (65-105)
[2020-10-15 18:04] LABS: Hematocrit 28.2 % (42.0-52.0); Hemoglobin 8.8 g/dL (14.0-18.0)
[2020-10-15] MEDS: HYDROcodone/acetaminophen (*CRX) 5-325 MG TABLET 1 TAB PO (18:53)
[2020-10-15 20:16] LABS: IFOB Positive Control Positive; Immunochemical Fecal Occult Bl Negative (N)
[2020-10-15] MEDS: MELATONIN 3 MG TABLET PO (21:34)
[2020-10-16] VITALS (11 sets, daily range): BP systolic 94–114; BP diastolic 54–66; PULSE 82–92; RESP 18; TEMP 36.3–36.9; O2SAT 92–100
[2020-10-16 00:47] LABS: Hematocrit 25.3 % (42.0-52.0); Hemoglobin 8.1 g/dL (14.0-18.0)
[2020-10-16] MEDS: HYDROcodone/acetaminophen (*CRX) 5-325 MG TABLET 1 TAB PO ×2 (01:24→16:06)
[2020-10-16 01:55] LABS: Glucose Point of Care 132 mg/dl (65-105)
[2020-10-16 06:47] LABS: Hematocrit 24.4 % (42.0-52.0); Hemoglobin 7.8 g/dL (14.0-18.0); Mean Corpuscular Volume 87.5 fl (80-100); Mean Platelet Volume 10.9 fl (7.4-10.4); Platelet Count Result 274 k/mm3 (150-375); Red Blood Count 2.79 M/mm3 (4.6-6.20); White Blood Count 8.1 K/mm3 (4.5-10.0)
[2020-10-16 07:02] LABS: Anion Gap 6 mmol/L (8-16); Blood Urea Nitrogen 35 mg/dL (9-20); Calcium 8.1 mg/dL (8.4-10.2); Carbon Dioxide 27 mmol/L (22-30); Chloride 100 mmol/L (98-107); Estimated CRCL calculation 62 ml/min; Estimated Glomerular Filt Rate 51; Glucose 94 mg/dL (75-110); Potassium 4.2 mmol/L (3.4-5.0); Sodium 133 mmol/L (137-145)
[2020-10-16 08:34] LABS: Glucose Point of Care 99 mg/dl (65-105)
[2020-10-16] MEDS: THIAMINE HCL 100 MG TABLET PO (08:58)
[2020-10-16] MEDS: ATORVASTATIN 40 MG TABLET 80 MG PO (08:58)
[2020-10-16] MEDS: FOLIC ACID 1 MG TABLET PO (08:59)
[2020-10-16] MEDS: POTASSIUM CHLORIDE 20 MEQ TABLET.ER PO (08:59)
[2020-10-16] MEDS: PANTOPRAZOLE 40 MG TABLET PO (08:59)
[2020-10-16] MEDS: EUCERIN CREAM 120 GM JAR 1 APPLIC TOPICAL (08:59)
--- NOTE | 2020-10-16 09:48 | PM.IMPN ---
Progress Note: A&P Assessment and Plan (1) Acute on chronic anemia: Code(s): D64.9 - Anemia, unspecified Status: Acute Assessment and Plan: Chronic anemia likely secondary to CKD with acute worsening, etiology unknown. Iron panel from September 2020 reviewed and is sufficient. LDH and total bilirubin within normal limits. He has been transfused a total of 3 units this hospitalization. Hgb down to 7.8 this morning. Repeat H&H this afternoon. Transfuse as needed to stable Hgb >7.0. Consult to hematology. Input appreciated. (2) Occult blood in stools: Code(s): R19.5 - Other fecal abnormalities Status: Acute Assessment and Plan: Resolved. Hemoccult-positive stool on 10/04/2020, likely related to recent episode of diverticulitis. Colonoscopy in June 2019 with multiple polyps and internal hemorrhoids, EGD with gastritis and gastric polyp s/p excision. Occult blood test negative on 10/15/20. Appreciate gastroenterology consultation. No need for further GI workup at this time as no obvious source of upper or lower GI bleeding Continue p.o. Protonix. (3) Atrial flutter: Qualifiers: Atrial flutter type: unspecified Qualified Code(s): I48.92 - Unspecified atrial flutter Code(s): I48.92 - Unspecified atrial flutter Status: Acute Assessment and Plan: Rate is controlled. Continue Cardizem He is not on long-term anticoagulation given his anemia Aspirin is on hold (4) Chronic alcoholism: Code(s): F10.20 - Alcohol dependence, uncomplicated Status: Acute Assessment and Plan: Last drink was over 2 weeks ago. No signs of alcohol withdrawal. Continue with thiamine and folic acid Monitor clinically for any signs of withdrawal, do not anticipate given duration since last drink. Alcohol cessation discussed. He does not wish to quit drinking but would like to cut back. (5) Acute renal failure superimposed on stage 3a chronic kidney disease: Qualifiers: Acute renal failure type: unspecified Qualified Code(s): N17.9 - Acute kidney failure, unspecified; N18.31 - Chronic kidney disease, stage 3a Code(s): N17.9 - Acute kidney failure, unspecified; N18.31 - Chronic kidney disease, stage 3a Status: Acute Assessment and Plan: Baseline appears fluctuant. Creatinine was down to 1.3 at time of discharge last week. Creatinine was 1.7 at time of presentation with improvement down to 1.4, mostly consistent with baseline. Monitor renal function closely. (6) Physical deconditioning: Code(s): R53.81 - Other malaise Status: Acute Assessment and Plan: He was just discharged on 10/09/2020 to SNF for rehab given his deconditioning. Appreciate PT/OT eval. He will likely be discharged back to rehab. Care coordination following (7) Tobacco dependence: Code(s): F17.200 - Nicotine dependence, unspecified, uncomplicated Status: Chronic Assessment and Plan: He reports smoking 1/2 ppd. Declines need for nicotine patch. He was educated on importance of smoking cessation and verbalized understanding. He has no intentions of quitting smoking. (8) Diabetes: Qualifiers: Diabetes mellitus type: type 2 Diabetes mellitus intermediate insulin use: without intermediate use Diabetes mellitus complication status: with kidney complications Diabetes mellitus complication detail: with chronic kidney disease Chronic kidney disease stage: stage 3 (moderate) Qualified Code(s): E11.22 - Type 2 diabetes mellitus with diabetic chronic kidney disease; N18.3 - Chronic kidney disease, stage 3 (moderate) Code(s): E11.9 - Type 2 diabetes mellitus without complications Status: Chronic Assessment and Plan: Last A1c was 6.0 (09/19/2020). Blood sugars reviewed and are fairly well controlled. Accu-Cheks, sliding scale insulin, and hypoglycemic protocol Monitor
[2020-10-16] MEDS: guaiFENesin 12 HR 600 MG TABCR PO ×2 (10:21→20:58)
[2020-10-16 12:08] LABS: Glucose Point of Care 99 mg/dl (65-105)
[2020-10-16 13:01] LABS: Hematocrit 25.7 % (42.0-52.0); Hemoglobin 7.9 g/dL (14.0-18.0)
--- NOTE | 2020-10-16 16:26 | PDONCCN ---
HPI - Date of Consult Date/Time: 10/16/20 16:26 Requesting Physician: Eloise Daniels PA-C Primary Care Provider: Hayden Viveros, DO - Consult Narrative Reason for consult: Normocytic anemia. Narrative: Solo Krishnan is a 64 year old male with history of bilateral lower extremity cellulitis, COPD, diabetes and coronary artery disease [facility] Patient came into the hospital when the blood was checked and showed hemoglobin of 6.2. He denies any bleeding including melena hematochezia. He has been complaining of tiredness and fatigue. He denies any weight loss. No fevers and chills. On arrival to the ER hemoglobin was 6.6. Patient received 3 units of packed red blood cells. Patient is complaining of lower back pain as well as bilateral lower extremity pain. Patient had colonoscopy done in June of 2020 that showed ascending, descending and sigmoid colon polyps and internal hemorrhoids. Labs from October 03 showed normal iron studies. Creatinine will elevated at 1.4 with GFR of 51%. Vitamin B12 was normal. Review of Systems - Review of Systems All systems reviewed & are unremarkable except as noted in HPI and bel - Neurologic Reports hearing normal, Denies headache(s), Denies focal weakness, Denies sensory deficit, Denies weakness [facility] Medical History: Medical History (Last Updated 10/15/20 @ 16:28 by Boni Cowan MD) Acute kidney injury Anemia in stage 3a chronic kidney disease Aortic stenosis Noted on echo March 2019 was mild with a mean gradient of 7 a valve area of 1.6 Arthritis B12 deficiency Diagnosed December 2018 with adequate supplementation B12 level is now elevated Benign essential hypertension Body mass index (BMI) 40.0-44.9, adult CAD (coronary artery disease) Cellulitis Recurrent lower extremity cellulitis Chronic insomnia Chronic kidney disease, stage 3a 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 Right ventricular chamber dimension is severely enlarged. 2. Right ventricular systolic function is moderate to severely reduced. 3. Prominent moderator band. 4. Flattening of the septum in diastole and systole consistent with right ventricular volume and pressure overload. 5. Right atrial chamber dimension is markedly enlarged. 6. There is mild aortic valve stenosis with a peak velocity of 186 cm/s, mean gradient of 7 mmHg, and aortic valve area of 1.6 cm2. 7. There is mild aortic valve calcification. 8. There is moderate tricuspid valve regurgitation. 9. Mild thickening with suggested focal calcification of tricuspid valve which cannot be further characterized given limited visualization. 10. Moderate pulmonary hypertension, estimated pulmonary arterial systolic pressure is 56 mmHg. 11. Dilated inferior vena cava with <50% collapse upon inspiration consistent with elevated right atrial pressure, 15 mmHg. 12. Left ventricular systolic function is normal, estimated at 55-60%. 13. There is mildly increased left ventricular wall thickness. 14. The left ventricular diastolic function is grade II diastolic dysfunction. COPD (chronic obstructive pulmonary disease) Coronary artery disease Diabetes Diverticulitis large intestine GERD (gastroesophageal reflux disease) Gout Heart attack 2013 with cardiac arrest requiring defibrillation Hypercholesteremia Insomnia Kidney stones Many years ago the patient passed on his own Leg fracture, right Moderate pulmonary arterial systolic hypertension Obstructive sleep apnea Refuses CPAP Occult blood in stools Other and unspecified hyperlipidemia Paroxysmal atrial fibrillation Onset Date: ~03/2019 Pulmonary hypertension Moderate per echo 03/2019 PVD (peripheral vascular disease) Retroperitoneal lymphadenopathy Right-sided heart failure Stage 3b chronic kidney disease Umbilical hernia Not repaired Surgical His
[2020-10-16 17:02] LABS: Glucose Point of Care 94 mg/dl (65-105)
[2020-10-16] MEDS: EPOETIN ALFA-EPBX 20,000 UNITS/ML VIAL 20000 UNITS SUB-Q (17:16)
[2020-10-16 19:25] LABS: Hematocrit 24.4 % (42.0-52.0); Hemoglobin 7.7 g/dL (14.0-18.0)
[2020-10-16] MEDS: MELATONIN 3 MG TABLET PO (20:58)
[2020-10-16 21:47] LABS: Glucose Point of Care 137 mg/dl (65-105)
[2020-10-17] VITALS (13 sets, daily range): BP systolic 95–102; BP diastolic 61–67; PULSE 82–92; RESP 18–22; TEMP 36.2–36.6; O2SAT 90–95
[2020-10-17 06:40] LABS: Hematocrit 25.6 % (42.0-52.0); Hemoglobin 7.9 g/dL (14.0-18.0); Mean Corpuscular HGB Conc 30.9 g/dl (32-36); Mean Corpuscular Hemoglobin 27.6 pg (26-34); Mean Corpuscular Volume 89.5 fl (80-100); Mean Platelet Volume 10.5 fl (7.4-10.4); Platelet Count Result 293 k/mm3 (150-375); Red Blood Count 2.86 M/mm3 (4.6-6.20); Red Cell Distribution Width 19.2 % (11.5-14.5); White Blood Count 7.2 K/mm3 (4.5-10.0)
[2020-10-17 06:53] LABS: Anion Gap 8 mmol/L (8-16); Blood Urea Nitrogen 34 mg/dL (9-20); Calcium 8.6 mg/dL (8.4-10.2); Carbon Dioxide 27 mmol/L (22-30); Chloride 100 mmol/L (98-107); Estimated CRCL calculation 62 ml/min; Estimated Glomerular Filt Rate 51; Glucose 94 mg/dL (75-110); Potassium 4.8 mmol/L (3.4-5.0); Sodium 135 mmol/L (137-145)
[2020-10-17] MEDS: ATORVASTATIN 40 MG TABLET 80 MG PO (09:11)
[2020-10-17] MEDS: POTASSIUM CHLORIDE 20 MEQ TABLET.ER PO (09:12)
[2020-10-17] MEDS: guaiFENesin 12 HR 600 MG TABCR PO ×2 (09:12→21:19)
[2020-10-17] MEDS: THIAMINE HCL 100 MG TABLET PO (09:12)
[2020-10-17] MEDS: FOLIC ACID 1 MG TABLET PO (09:12)
[2020-10-17] MEDS: HYDROcodone/acetaminophen (*CRX) 5-325 MG TABLET 1 TAB PO ×2 (09:12→21:16)
[2020-10-17] MEDS: PANTOPRAZOLE 40 MG TABLET PO (09:12)
[2020-10-17 09:14] LABS: Glucose Point of Care 91 mg/dl (65-105)
[2020-10-17] MEDS: EUCERIN CREAM 120 GM JAR 1 APPLIC TOPICAL (12:23)
[2020-10-17 12:25] LABS: Glucose Point of Care 98 mg/dl (65-105)
--- NOTE | 2020-10-17 13:52 | PM.IMPN ---
Progress Note: A&P Assessment and Plan (1) Acute on chronic anemia: Code(s): D64.9 - Anemia, unspecified Status: Acute Assessment and Plan: Chronic anemia likely secondary to CKD with acute worsening, etiology unknown. Iron panel from September 2020 reviewed and is sufficient. LDH and total bilirubin within normal limits. He has been transfused a total of 3 units this hospitalization. Hgb remaining stable today. Monitor H&H closely to ensure remaining stable. Transfuse as needed to stable Hgb >7.0. Consult to hematology. Input appreciated. Received Epoetin injection on 10/16. Hopeful improvement in anemia following. (2) Occult blood in stools: Code(s): R19.5 - Other fecal abnormalities Status: Acute Assessment and Plan: Resolved. Hemoccult-positive stool on 10/04/2020, likely related to recent episode of diverticulitis. Colonoscopy in June 2019 with multiple polyps and internal hemorrhoids, EGD with gastritis and gastric polyp s/p excision. Occult blood test negative on 10/15/20. Appreciate gastroenterology consultation. No need for further GI workup at this time as no obvious source of upper or lower GI bleeding Continue p.o. Protonix. (3) Atrial flutter: Qualifiers: Atrial flutter type: unspecified Qualified Code(s): I48.92 - Unspecified atrial flutter Code(s): I48.92 - Unspecified atrial flutter Status: Acute Assessment and Plan: Rate is controlled. Continue Cardizem He is not on long-term anticoagulation given his anemia Aspirin is on hold in light of anemia (4) Chronic alcoholism: Code(s): F10.20 - Alcohol dependence, uncomplicated Status: Acute Assessment and Plan: Last drink was over 2 weeks ago. No signs of alcohol withdrawal. Continue with thiamine and folic acid Monitor clinically for any signs of withdrawal, do not anticipate given duration since last drink. Alcohol cessation discussed. He does not wish to quit drinking but would like to cut back. (5) Acute renal failure superimposed on stage 3a chronic kidney disease: Qualifiers: Acute renal failure type: unspecified Qualified Code(s): N17.9 - Acute kidney failure, unspecified; N18.31 - Chronic kidney disease, stage 3a Code(s): N17.9 - Acute kidney failure, unspecified; N18.31 - Chronic kidney disease, stage 3a Status: Acute Assessment and Plan: Baseline appears fluctuant. Creatinine was down to 1.3 at time of discharge last week. Creatinine was 1.7 at time of presentation with improvement down to 1.4, mostly consistent with baseline. Monitor renal function closely. (6) Physical deconditioning: Code(s): R53.81 - Other malaise Status: Acute Assessment and Plan: He was just discharged on 10/09/2020 to SNF for rehab given his deconditioning. Appreciate PT/OT eval. He will be discharged back to rehab. Care coordination following (7) Tobacco dependence: Code(s): F17.200 - Nicotine dependence, unspecified, uncomplicated Status: Chronic Assessment and Plan: He reports smoking 1/2 ppd. Declines need for nicotine patch. He was educated on importance of smoking cessation and verbalized understanding. He has no intentions of quitting smoking. (8) Diabetes: Qualifiers: Diabetes mellitus type: type 2 Diabetes mellitus [facility] insulin use: without manager long term care use Diabetes mellitus complication status: with kidney complications Diabetes mellitus complication detail: with chronic kidney disease Chronic kidney disease stage: stage 3 (moderate) Qualified Code(s): E11.22 - Type 2 diabetes mellitus with diabetic chronic kidney disease; N18.3 - Chronic kidney disease, stage 3 (moderate) Code(s): E11.9 - Type 2 diabetes mellitus without complications Status: Chronic Assessment and Plan: Last A1c was 6.0 (09/19/2020). Blood sugars review
[2020-10-17 13:58] LABS: Hematocrit 26.9 % (42.0-52.0); Hemoglobin 8.4 g/dL (14.0-18.0)
[2020-10-17 17:34] LABS: Glucose Point of Care 100 mg/dl (65-105)
[2020-10-17] MEDS: MELATONIN 3 MG TABLET PO (21:19)
[2020-10-17 21:31] LABS: Glucose Point of Care 104 mg/dl (65-105)
[2020-10-18] VITALS (10 sets, daily range): BP systolic 87–107; BP diastolic 48–64; PULSE 80–91; RESP 16–24; TEMP 36.3–36.7; O2SAT 90–99
[2020-10-18 06:27] LABS: Hematocrit 24.9 % (42.0-52.0); Hemoglobin 7.7 g/dL (14.0-18.0); Mean Corpuscular HGB Conc 30.9 g/dl (32-36); Mean Corpuscular Hemoglobin 27.4 pg (26-34); Mean Corpuscular Volume 88.6 fl (80-100); Mean Platelet Volume 10.3 fl (7.4-10.4); Platelet Count Result 302 k/mm3 (150-375); Red Blood Count 2.81 M/mm3 (4.6-6.20); Red Cell Distribution Width 19.2 % (11.5-14.5); White Blood Count 5.9 K/mm3 (4.5-10.0)
[2020-10-18 06:40] LABS: Anion Gap 7 mmol/L (8-16); Blood Urea Nitrogen 30 mg/dL (9-20); Calcium 8.8 mg/dL (8.4-10.2); Carbon Dioxide 26 mmol/L (22-30); Chloride 101 mmol/L (98-107); Estimated CRCL calculation 67 ml/min; Estimated Glomerular Filt Rate 56; Glucose 93 mg/dL (75-110); Potassium 4.6 mmol/L (3.4-5.0); Sodium 134 mmol/L (137-145)
[2020-10-18 08:08] LABS: Glucose Point of Care 68 mg/dl (65-105)
[2020-10-18] MEDS: FOLIC ACID 1 MG TABLET PO (08:45)
[2020-10-18] MEDS: ATORVASTATIN 40 MG TABLET 80 MG PO (08:45)
[2020-10-18] MEDS: POTASSIUM CHLORIDE 20 MEQ TABLET.ER PO (08:46)
[2020-10-18] MEDS: guaiFENesin 12 HR 600 MG TABCR PO ×2 (08:46→21:33)
[2020-10-18] MEDS: PANTOPRAZOLE 40 MG TABLET PO (08:46)
[2020-10-18] MEDS: THIAMINE HCL 100 MG TABLET PO (08:46)
[2020-10-18] MEDS: EUCERIN CREAM 120 GM JAR 1 APPLIC TOPICAL (08:46)
[2020-10-18] MEDS: HYDROcodone/acetaminophen (*CRX) 5-325 MG TABLET 1 TAB PO ×2 (09:56→21:35)
--- NOTE | 2020-10-18 10:00 | PM.IMPN ---
Progress Note: A&P Assessment and Plan (1) Acute on chronic anemia: Code(s): D64.9 - Anemia, unspecified Status: Acute Assessment and Plan: Chronic anemia likely secondary to CKD with acute worsening. Iron panel from September 2020 reviewed and is sufficient. LDH and total bilirubin within normal limits. He has been transfused a total of 3 units this hospitalization. Hgb remaining stable today after receiving epoetin injection on 10/16/2020. He was seen in consultation by Hematology and will need to follow-up as an outpatient in 2 weeks for further evaluation and to continue injections (2) Occult blood in stools: Code(s): R19.5 - Other fecal abnormalities Status: Acute Assessment and Plan: Resolved. Hemoccult-positive stool on 10/04/2020, likely related to recent episode of diverticulitis. Colonoscopy in June 2019 with multiple polyps and internal hemorrhoids, EGD with gastritis and gastric polyp s/p excision. Occult blood test negative on 10/15/20. He was seen in consultation by Gastroenterology and no further GI workup was felt to be needed as there was no obvious source of upper or lower GI bleeding. Continue p.o. Protonix. (3) Atrial flutter: Qualifiers: Atrial flutter type: unspecified Qualified Code(s): I48.92 - Unspecified atrial flutter Code(s): I48.92 - Unspecified atrial flutter Status: Acute Assessment and Plan: Rate is controlled on his home Cardizem. He is not on long-term anticoagulation, presumably due to his anemia. Aspirin initially held given concern for GI bleed but this will be resumed. (4) Chronic alcoholism: Code(s): F10.20 - Alcohol dependence, uncomplicated Status: Acute Assessment and Plan: Last drink was over 2 weeks ago. No signs of alcohol withdrawal. Continue with thiamine and folic acid Monitor clinically for any signs of withdrawal, do not anticipate given duration since last drink. Alcohol cessation discussed. He does not wish to quit drinking but would like to cut back. (5) Acute renal failure superimposed on stage 3a chronic kidney disease: Qualifiers: Acute renal failure type: unspecified Qualified Code(s): N17.9 - Acute kidney failure, unspecified; N18.31 - Chronic kidney disease, stage 3a Code(s): N17.9 - Acute kidney failure, unspecified; N18.31 - Chronic kidney disease, stage 3a Status: Acute Assessment and Plan: Baseline appears fluctuant. Creatinine was down to 1.3 at time of discharge last week. Creatinine was 1.7 at time of presentation with improvement back to baseline at 1.3 (6) Physical deconditioning: Code(s): R53.81 - Other malaise Status: Acute Assessment and Plan: He was just discharged on 10/09/2020 to SNF for rehab given his deconditioning. Appreciate PT/OT eval. He will be discharged back to rehab. Care coordination following Planned for discharge today, however still awaiting insurance authorization for SNF. Discharge once complete (7) Tobacco dependence: Code(s): F17.200 - Nicotine dependence, unspecified, uncomplicated Status: Chronic Assessment and Plan: He reports smoking 1/2 ppd. Declined need for nicotine patch. He was educated on importance of smoking cessation and verbalized understanding. He has no intentions of quitting smoking. (8) Diabetes: Qualifiers: Diabetes mellitus type: type 2 Diabetes mellitus [employer] insulin use: without shelter use Diabetes mellitus complication status: with kidney complications Diabetes mellitus complication detail: with chronic kidney disease Chronic kidney disease stage: stage 3 (moderate) Qualified Code(s): E11.22 - Type 2 diabetes mellitus with diabetic chronic kidney disease; N18.3 - Chronic kidney disease, stage 3 (moderate) Code(s): E11.9 - Type 2 diabetes mellitus without complications Status: Chronic Ass
--- NOTE | 2020-10-18 11:12 | PM.DS ---
DS: Admitting Diagnosis Admitting Diagnosis Admitting Diagnosis: Acute on chronic anemia DS: Discharge Diagnosis Discharge Diagnosis (1) Acute on chronic anemia: Code(s): D64.9 - Anemia, unspecified Status: Acute Assessment and Plan: Chronic anemia likely secondary to CKD with acute worsening. Iron panel from September 2020 reviewed and is sufficient. LDH and total bilirubin within normal limits. He was transfused a total of 3 units this hospitalization. Hgb remained stable after transfusion and epoetin injection on 10/16/2020. He was seen in consultation by Hematology and will need to follow-up as an outpatient in 2 weeks for further evaluation and to continue epoeitin injections (2) Occult blood in stools: Code(s): R19.5 - Other fecal abnormalities Status: Acute Assessment and Plan: Resolved. Hemoccult-positive stool on 10/04/2020, likely related to recent episode of diverticulitis. Colonoscopy in June 2019 with multiple polyps and internal hemorrhoids, EGD with gastritis and gastric polyp s/p excision. Occult blood test negative on 10/15/20. He was seen in consultation by Gastroenterology and no further GI workup was felt to be needed as there was no obvious source of upper or lower GI bleeding. Continue p.o. Protonix. (3) Atrial flutter: Qualifiers: Atrial flutter type: unspecified Qualified Code(s): I48.92 - Unspecified atrial flutter Code(s): I48.92 - Unspecified atrial flutter Status: Acute Assessment and Plan: Rate remained controlled on his home Cardizem. He is not on long-term anticoagulation, presumably due to his anemia. Aspirin initially held given concern for GI bleed but this was resumed. (4) Chronic alcoholism: Code(s): F10.20 - Alcohol dependence, uncomplicated Status: Acute Assessment and Plan: Last drink was over 2 weeks ago. No signs of alcohol withdrawal. Continue daily thiamine and folic acid. Alcohol cessation discussed. He does not wish to quit drinking but would like to cut back. (5) Acute renal failure superimposed on stage 3a chronic kidney disease: Qualifiers: Acute renal failure type: unspecified Qualified Code(s): N17.9 - Acute kidney failure, unspecified; N18.31 - Chronic kidney disease, stage 3a Code(s): N17.9 - Acute kidney failure, unspecified; N18.31 - Chronic kidney disease, stage 3a Status: Acute Assessment and Plan: Baseline appears fluctuant. Creatinine was down to 1.3 at time of discharge last week. Creatinine was 1.7 at time of presentation with improvement back to baseline at 1.3 (6) Physical deconditioning: Code(s): R53.81 - Other malaise Status: Acute Assessment and Plan: He was just discharged on 10/09/2020 to SNF for rehab given his deconditioning. He was evaluated by PT/OT during stay and will continue therapy back at SNF. (7) Tobacco dependence: Code(s): F17.200 - Nicotine dependence, unspecified, uncomplicated Status: Chronic Assessment and Plan: He reports smoking 1/2 ppd. Declined need for nicotine patch. He was educated on importance of smoking cessation and verbalized understanding. He has no intentions of quitting smoking. (8) Diabetes: Qualifiers: Diabetes mellitus type: type 2 Diabetes mellitus [employer] insulin use: without superintendent terminal use Diabetes mellitus complication status: with kidney complications Diabetes mellitus complication detail: with chronic kidney disease Chronic kidney disease stage: stage 3 (moderate) Qualified Code(s): E11.22 - Type 2 diabetes mellitus with diabetic chronic kidney disease; N18.3 - Chronic kidney disease, stage 3 (moderate) Code(s): E11.9 - Type 2 diabetes mellitus without complications Status: Chronic Assessment and Plan: Last A1c was 6.0 (09/19/2020). Blood sugars reviewed and were well controlled with sliding scale insulin cove
[2020-10-18 12:17] LABS: Glucose Point of Care 115 mg/dl (65-105)
[2020-10-18 17:12] LABS: Glucose Point of Care 97 mg/dl (65-105)
[2020-10-18] MEDS: MELATONIN 3 MG TABLET PO (21:32)
[2020-10-19] MEDS: HYDROcodone/acetaminophen (*CRX) 5-325 MG TABLET 1 TAB PO (05:37)
[2020-10-19 06:00] VITALS: BP 86/52; PULSE 55; RESP 22; TEMP 36.4; O2SAT 97
[2020-10-19 07:38] VITALS: PULSE 85; RESP 20; O2SAT 93
[2020-10-19 07:48] VITALS: PULSE 81; RESP 20
[2020-10-19 08:14] LABS: Glucose Point of Care 83 mg/dl (65-105)
[2020-10-19 08:40] VITALS: BP 102/62; PULSE 88; RESP 16; TEMP 36.4; O2SAT 90
[2020-10-19] MEDS: EUCERIN CREAM 120 GM JAR 1 APPLIC TOPICAL (10:02)
[2020-10-19] MEDS: FOLIC ACID 1 MG TABLET PO (10:02)
[2020-10-19] MEDS: POTASSIUM CHLORIDE 20 MEQ TABLET.ER PO (10:02)
[2020-10-19] MEDS: ATORVASTATIN 40 MG TABLET 80 MG PO (10:02)
[2020-10-19] MEDS: THIAMINE HCL 100 MG TABLET PO (10:02)
[2020-10-19] MEDS: PANTOPRAZOLE 40 MG TABLET PO (10:02)
[2020-10-19] MEDS: guaiFENesin 12 HR 600 MG TABCR PO (10:02)
[2020-10-19 11:32] LABS: Glucose Point of Care 84 mg/dl (65-105)
[2020-10-19 13:12] VITALS: BP 100/56; PULSE 86; O2SAT 97
[2020-10-19] MEDS: ASPIRIN 81 MG ENTERIC TABLET PO (13:31)
[2020-10-20 10:56] LABS: Haptoglobin 360 mg/dL (43-212)
[2020-10-20 17:11] LABS: Erythropoietin (EPO) 24.5 mIU/mL (2.6-18.5)
[2020-10-20 20:58] LABS: Albumin 2.6 g/dL (3.8-4.8); Alpha 1 Globulin 0.5 g/dL (0.2-0.3); Alpha 2 Globulin 0.9 g/dL (0.5-0.9); Beta 1 Globulin 0.4 g/dL (0.4-0.6); Gamma Globulin 0.9 g/dL (0.8-1.7); Protein, Total 5.6 g/dL (6.1-8.1)
== END 2020-10-19 14:00 | DRG 682 ==
LOC: ANHED 21:14 → ANH3MEDSUR 10-14 01:03
PROVIDERS: Internal Medicine Hematology & Oncology; Physician Assistant; Admitting Provider Internal Medicine; Emergency Provider Emergency Medicine; PCP Internal Medicine; Visit Provider Internal Medicine
DX: N18.31 Chronic kidney disease, stage 3a (principal); K57.93 Diverticulitis of intestine, part unspecified, without perforation or abscess with bleeding; I13.0 Hypertensive heart and chronic kidney disease with heart failure and stage 1 through stage 4 chronic kidney disease, or unspecified chronic kidney disease; I50.42 Chronic combined systolic (congestive) and diastolic (congestive) heart failure; I48.92 Unspecified atrial flutter; D63.1 Anemia in chronic kidney disease; N17.9 Acute kidney failure, unspecified; J44.9 Chronic obstructive pulmonary disease, unspecified; I48.91 Unspecified atrial fibrillation; F17.200 Nicotine dependence, unspecified, uncomplicated; E11.22 Type 2 diabetes mellitus with diabetic chronic kidney disease; I25.10 Atherosclerotic heart disease of native coronary artery without angina pectoris; I25.2 Old myocardial infarction; I48.0 Paroxysmal atrial fibrillation; G47.33 Obstructive sleep apnea (adult) (pediatric); K21.9 Gastro-esophageal reflux disease without esophagitis; I73.9 Peripheral vascular disease, unspecified; F10.20 Alcohol dependence, uncomplicated; E86.1 Hypovolemia; K42.9 Umbilical hernia without obstruction or gangrene
CPT/HCPCS: 36415; 36430; 51701; 71046; 74176; 80048; 80053; 81001; 82274; 82668; 82948; 83010; 83615; 84155; 84165; 85014; 85018; 85025; 85027; 86334; 86850; 86900; 86901; 86923; 94640; 96361; 96374; 97110; 97116; 97161; 97165; 97530; 97535; 99285; A9270; G0378; J1885; J7050; P9016; Q5106